=== PATIENT | female | born 1945 | race Caucasian/White ===

== ENCOUNTER 2019-09-25 10:15 | Outpatient (CLI) | payer MEDICARE, SELFPAY ==
[2019-09-25 15:41] LABS: Basophils Percent Auto 0.7 % (0.2-1.2); Eosinophils Absolute Auto 0.4 K/mm3 (0-0.3); Eosinophils Percent Auto 7.4 % (0-4.4); Hematocrit 34.3 % (37.0-47.0); Hemoglobin 11.1 g/dL (12.0-15.0); Immature Granulocyte Absolute 0.01 K/mm3 (0.00-0.031); Immature Granulocyte Percent A 0.2 % (0-0.5); Lymphocytes Absolute Auto 1.41 K/mm3 (0.9-3.2); Mean Corpuscular HGB Conc 32.4 g/dl (32-36); Mean Corpuscular Hemoglobin 32.6 pg (26-34); Mean Corpuscular Volume 100.6 fl (80-100); Mean Platelet Volume 9.7 fl (7.4-10.4); Monocytes Absolute Auto 0.6 K/mm3 (0.1-0.6); Monocytes Percent Auto 11.2 % (2.6-8.5); Neutrophils Percent Auto 54.5 % (45.5-73.1); Platelet Count Result 194 k/mm3 (150-375); Red Blood Count 3.41 M/mm3 (4.2-5.4); Red Cell Distribution Width 12.2 % (11.5-14.5); White Blood Count 5.4 K/mm3 (4.5-10.0)
[2019-09-25 15:48] LABS: Blood Urea Nitrogen 36 mg/dL (7-17); Calcium 9.6 mg/dL (8.4-10.2); Carbon Dioxide 23 mmol/L (22-30); Chloride 104 mmol/L (98-107); Cholesterol 200 mg/dL (0-200); Estimated Glomerular Filt Rate 44; Glucose 87 mg/dL (65-105); HDL Direct 87 mg/dL; Potassium 4.6 mmol/L (3.4-5.0); Sodium 138 mmol/L (137-145); Triglycerides 55 mg/dL (<150)
[2019-09-25 15:58] LABS: LDL Cholesterol Direct 101 mg/dL
[2019-09-25 16:17] LABS: Thyroid Stimulating Hormone < 0.015 uIU/mL (0.465-4.680)
[2019-09-25 17:04] LABS: Free T4 Free Thyroxine 2.12 ng/mL (0.78-2.19)
== END 2019-09-25 10:16 | disposition home or self-care (01) ==
PROVIDERS: PCP Internal Medicine; Visit Provider Internal Medicine
DX: E03.9 Hypothyroidism, unspecified (principal); Z79.899 Other long term (current) drug therapy
CPT/HCPCS: 36415; 80048; 80061; 82542; 84439; 84443; 85025

== ENCOUNTER 2019-10-12 11:09 | Outpatient (CLI) | payer MEDICARE, SELFPAY ==
[2019-10-12 11:40] LABS: Add Urine Microscopic? NO; Appearance Urine Clear (Clear); Bilirubin Urine Negative (Negative); Blood Urine Negative (Negative); Color Urine Straw (Yellow); Glucose Urine UA Negative (Negative); Ketones Urine Negative (Negative); Leukocyte Esterase Ur Negative LEU/UL (NEGATIVE); Nitrate Urine Negative (Negative); Protein Urine Negative (Negative); Specific Grav Ur 1.006 (1.001-1.035); Urobilinogen Urine Negative mg/dL (<2.0)
== END 2019-10-12 11:10 | disposition home or self-care (01) ==
PROVIDERS: PCP Internal Medicine; Visit Provider Internal Medicine
DX: R31.29 Other microscopic hematuria (principal)
CPT/HCPCS: 81003

== ENCOUNTER 2020-01-13 10:12 | Outpatient (CLI) | payer MEDICARE, SELFPAY ==
[2020-01-13 10:37] LABS: Basophils Absolute Auto 0.1 K/mm3 (0.0-0.1); Eosinophils Absolute Auto 2.2 K/mm3 (0-0.3); Eosinophils Percent Auto 30.9 % (0-4.4); Hematocrit 35.8 % (37.0-47.0); Hemoglobin 11.9 g/dL (12.0-15.0); Immature Granulocyte Absolute 0.01 K/mm3 (0.00-0.031); Immature Granulocyte Percent A 0.1 % (0-0.5); Lymphocytes Absolute Auto 1.66 K/mm3 (0.9-3.2); Lymphocytes Percent Auto 23.1 % (18.3-44.2); Mean Corpuscular HGB Conc 33.2 g/dl (32-36); Mean Corpuscular Hemoglobin 32.7 pg (26-34); Mean Corpuscular Volume 98.4 fl (80-100); Mean Platelet Volume 9.6 fl (7.4-10.4); Monocytes Absolute Auto 0.6 K/mm3 (0.1-0.6); Monocytes Percent Auto 8.5 % (2.6-8.5); Neutrophils Absolute Auto 2.6 K/mm3 (1.3-6.7); Neutrophils Percent Auto 36.4 % (45.5-73.1); Platelet Count Result 204 k/mm3 (150-375); Red Blood Count 3.64 M/mm3 (4.2-5.4); Red Cell Distribution Width 13.2 % (11.5-14.5); White Blood Count 7.2 K/mm3 (4.5-10.0)
[2020-01-13 10:48] LABS: Blood Urea Nitrogen 27 mg/dL (7-17); Calcium 9.5 mg/dL (8.4-10.2); Carbon Dioxide 28 mmol/L (22-30); Chloride 100 mmol/L (98-107); Cholesterol 169 mg/dL (0-200); Estimated Glomerular Filt Rate > 60; Glucose 91 mg/dL (65-105); HDL Direct 93 mg/dL; Potassium 4.8 mmol/L (3.4-5.0); Sodium 135 mmol/L (137-145); Triglycerides 64 mg/dL (<150)
[2020-01-13 10:53] LABS: Add Urine Microscopic? NO; Appearance Urine Clear (Clear); Bilirubin Urine Negative (Negative); Blood Urine Negative (Negative); Color Urine Straw (Yellow); Glucose Urine UA Negative (Negative); Ketones Urine Negative (Negative); Leukocyte Esterase Ur Negative LEU/UL (NEGATIVE); Nitrate Urine Negative (Negative); Protein Urine Negative (Negative); Specific Grav Ur 1.009 (1.001-1.035); Urobilinogen Urine Negative mg/dL (<2.0)
[2020-01-13 10:59] LABS: LDL Cholesterol Direct 65 mg/dL
[2020-01-13 11:20] LABS: Thyroid Stimulating Hormone 0.848 uIU/mL (0.465-4.680)
[2020-01-13 11:35] LABS: Free T4 Free Thyroxine 0.92 ng/mL (0.78-2.19)
[2020-01-13 12:01] LABS: Folic Acid > 20.0 ng/mL (2.76->20); Vitamin B12 > 1000.0 pg/mL (239-931)
== END 2020-01-13 10:13 | disposition home or self-care (01) ==
PROVIDERS: PCP Internal Medicine; Visit Provider Internal Medicine
DX: I10 Essential (primary) hypertension (principal); E03.9 Hypothyroidism, unspecified; R31.29 Other microscopic hematuria; E78.5 Hyperlipidemia, unspecified; E53.8 Deficiency of other specified B group vitamins
CPT/HCPCS: 36415; 80048; 80061; 81003; 82607; 82746; 84439; 84443; 85025

== ENCOUNTER 2020-01-27 10:48 | Outpatient (CLI) | payer MEDICARE, SELFPAY ==
--- NOTE | ~2020-01-27 | MM_ITS ---
EXAMINATION: MM screening [facility] BI w gilda HISTORY: Screening mammogram TECHNIQUE: Craniocaudal and mediolateral oblique 3-D tomosynthesis images were obtained and synthetic 2-D images were generated. CAD analysis was submitted and interpreted. COMPARISON: 11/13/2018, 10/30/2017, 10/17/2016 and lateral digital screening mammogram examinations BREAST PARENCHYMAL COMPOSITION: There are scattered areas of fibroglandular density. FINDINGS: There is no evidence of suspicious mass, calcification, or architectural distortion to sugg est malignancy in either breast. There has been no suspicious interval change. IMPRESSION: 1. No mammographic evidence of malignancy. 2. Recommend routine screening mammography in one year. BI-RADS Category 1: Negative Reviewed, dictated and finalized at location A.
== END 2020-01-27 10:49 | disposition home or self-care (01) ==
PROVIDERS: PCP Internal Medicine; Visit Provider Obstetrics & Gynecology
DX: Z12.31 Encounter for screening mammogram for malignant neoplasm of breast (principal)
CPT/HCPCS: 77063; 77067

== ENCOUNTER 2020-05-25 16:14 | Outpatient (CLI) | payer MEDICARE, SELFPAY ==
[2020-05-25 16:29] LABS: Basophils Percent Auto 0.5 % (0.2-1.2); Eosinophils Absolute Auto 0.3 K/mm3 (0-0.3); Eosinophils Percent Auto 4.9 % (0-4.4); Hematocrit 35.3 % (37.0-47.0); Hemoglobin 11.9 g/dL (12.0-15.0); Immature Granulocyte Absolute 0.01 K/mm3 (0.00-0.031); Immature Granulocyte Percent A 0.2 % (0-0.5); Lymphocytes Absolute Auto 1.67 K/mm3 (0.9-3.2); Lymphocytes Percent Auto 29.1 % (18.3-44.2); Mean Corpuscular HGB Conc 33.7 g/dl (32-36); Mean Corpuscular Hemoglobin 33.6 pg (26-34); Mean Corpuscular Volume 99.7 fl (80-100); Monocytes Absolute Auto 0.6 K/mm3 (0.1-0.6); Monocytes Percent Auto 9.9 % (2.6-8.5); Neutrophils Absolute Auto 3.2 K/mm3 (1.3-6.7); Neutrophils Percent Auto 55.4 % (45.5-73.1); Platelet Count Result 193 k/mm3 (150-375); Red Blood Count 3.54 M/mm3 (4.2-5.4); Red Cell Distribution Width 13.2 % (11.5-14.5); White Blood Count 5.7 K/mm3 (4.5-10.0)
[2020-05-25 16:42] LABS: Anion Gap 11 mmol/L (8-16); Blood Urea Nitrogen 18 mg/dL (7-17); Calcium 10.1 mg/dL (8.4-10.2); Carbon Dioxide 31 mmol/L (22-30); Chloride 97 mmol/L (98-107); Estimated Glomerular Filt Rate 54; Glucose 90 mg/dL (65-105); Potassium 4.4 mmol/L (3.4-5.0); Sodium 139 mmol/L (137-145)
== END 2020-05-25 16:15 | disposition home or self-care (01) ==
LOC: ANHLAB 16:17
PROVIDERS: PCP Internal Medicine; Visit Provider Internal Medicine
DX: K92.1 Melena (principal); R19.7 Diarrhea, unspecified; Z79.899 Other long term (current) drug therapy
CPT/HCPCS: 36415; 80048; 85025

== ENCOUNTER 2020-05-28 09:05 | Outpatient (CLI) | payer MEDICARE, SELFPAY ==
--- NOTE | ~2020-05-28 | CT_ITS ---
EXAMINATION: CT abdomen pelvis w con DATE: 05/28/2020 09:44 INDICATION: Left lower quadrant abdominal pain. TECHNIQUE: Computed tomography (CT) of the abdomen and pelvis was performed with 100 mL Omnipaque-350 intravenous contrast. Automated exposure control and iterative reconstruction technique were employe d. The dose-length product was 248.16 mGy-cm. COMPARISON: MRI dated 07/22/[address] dated 12/19/2006 FINDINGS: Calcified right middle lobe nodule consistent with old granulomatous disease. Borderline heart size w ith biatrial enlargement. Atherosclerotic coronary artery calcific calcification and aortic valve madeleine cification. No pericardial or pleural effusion. Liver, spleen, pancreas and bilateral adrenal glands are normal. There are a few small calcified gallstones in the dependent aspect of the normal gallblad bart. No intra or extrahepatic biliary ductal dilation. Scattered cortical scarring at both kidneys. 1 .7 cm low-attenuation exophytic cyst at the lower pole of the left kidney. Unchanged 12 mm intermedia te attenuation proteinaceous/hemorrhagic cyst at the left kidney which is without enhancement on prio r MRI. Postoperative change of prior partial colectomy with anastomotic suture line at the sigmoid co bia. Small bowel and appendix are normal. Bladder is normal. The uterus is not identified and has lik scot been surgically resected. No free intraperitoneal gas or fluid. No pathologically enlarged abdomi nal or pelvic lymphadenopathy. There is calcified atherosclerosis of the aorta and many of the other arteries. Mild thoracolumbar dextrocurvature with severe lower lumbar spondylosis. Old healed proxima l left femoral fracture with partially visualized internal fixation. IMPRESSION: 1. No acute intra-abdominal/pelvic process. 2. Borderline heart size with biatrial enlargement. 3. Cholelithiasis. Reviewed, dictated and finalized at location A.
[2020-05-28 09:37] LABS: Estimated Glomerular Filt Rate 54
== END 2020-05-28 09:06 | disposition home or self-care (01) ==
PROVIDERS: PCP Internal Medicine; Visit Provider Internal Medicine
DX: R10.32 Left lower quadrant pain (principal); K92.1 Melena; K80.20 Calculus of gallbladder without cholecystitis without obstruction
CPT/HCPCS: 74177; Q9967

== ENCOUNTER 2020-06-16 06:53 | Outpatient (NON) | payer MEDICARE, SELFPAY ==
[2020-06-16 21:43] LABS: SARS-CoV-2 RNA PCR Negative
== END 2020-06-16 06:54 ==
LOC: ANHCOVIDDT 06:56
PROVIDERS: PCP Internal Medicine; Visit Provider Internal Medicine
DX: Z20.828 Contact with and (suspected) exposure to other viral communicable diseases (principal)
CPT/HCPCS: 87635; C9803; U0003

== ENCOUNTER 2020-10-25 12:00 | Outpatient (CLI) | payer MEDICARE, SELFPAY ==
[2020-10-25 12:33] LABS: Basophils Percent Auto 0.6 % (0.2-1.2); Eosinophils Absolute Auto 0.5 K/mm3 (0-0.3); Eosinophils Percent Auto 9.5 % (0-4.4); Hematocrit 33.6 % (37.0-47.0); Hemoglobin 10.9 g/dL (12.0-15.0); Immature Granulocyte Absolute 0.01 K/mm3 (0.00-0.031); Immature Granulocyte Percent A 0.2 % (0-0.5); Lymphocytes Absolute Auto 1.54 K/mm3 (0.9-3.2); Lymphocytes Percent Auto 28.7 % (18.3-44.2); Mean Corpuscular HGB Conc 32.4 g/dl (32-36); Mean Corpuscular Volume 101.8 fl (80-100); Mean Platelet Volume 9.8 fl (7.4-10.4); Monocytes Absolute Auto 0.7 K/mm3 (0.1-0.6); Monocytes Percent Auto 13.4 % (2.6-8.5); Neutrophils Absolute Auto 2.6 K/mm3 (1.3-6.7); Neutrophils Percent Auto 47.6 % (45.5-73.1); Platelet Count Result 195 k/mm3 (150-375); Red Cell Distribution Width 13.5 % (11.5-14.5); White Blood Count 5.4 K/mm3 (4.5-10.0)
[2020-10-25 12:41] LABS: Hemoglobin A1C 4.7 % (<5.7)
[2020-10-25 12:47] LABS: Add Urine Microscopic? YES; Appearance Urine Clear (Clear); Bilirubin Urine Negative (Negative); Blood Urine Negative (Negative); Color Urine Yellow (Yellow); Glucose Urine UA Negative (Negative); Ketones Urine Negative (Negative); Leukocyte Esterase Ur 2+ LEU/UL (NEGATIVE); Nitrate Urine Negative (Negative); Protein Urine Negative (Negative); RBC Urine 0-2 /hpf (0-2); Specific Grav Ur 1.013 (1.001-1.035); Squamous Epithelial Cell Urine Occasional /hpf (Few); Urobilinogen Urine Negative mg/dL (<2.0)
[2020-10-25 12:49] LABS: Alanine Aminotransferase 26 U/L (4-35); Albumin Level 4.2 g/dL (3.5-5.1); Alkaline Phosphatase 94 U/L (38-126); Anion Gap 5 mmol/L (8-16); Aspartate Amino Transferase 40 U/L (14-36); Bilirubin,Total 0.4 mg/dL (0.2-1.3); Blood Urea Nitrogen 27 mg/dL (7-17); Calcium 9.8 mg/dL (8.4-10.2); Carbon Dioxide 32 mmol/L (22-30); Chloride 102 mmol/L (98-107); Cholesterol 179 mg/dL (0-200); Estimated Glomerular Filt Rate 48; Glucose 89 mg/dL (65-105); HDL Direct 91 mg/dL; Potassium 4.7 mmol/L (3.4-5.0); Sodium 139 mmol/L (137-145); Triglycerides 90 mg/dL (<150)
[2020-10-25 13:00] LABS: LDL Cholesterol Direct 57 mg/dL
[2020-10-25 13:15] LABS: Vitamin D 25 Hydroxy 63.3 ng/mL
[2020-10-25 13:17] LABS: Thyroid Stimulating Hormone < 0.015 uIU/mL (0.465-4.680)
[2020-10-25 13:52] LABS: Folic Acid > 20.0 ng/mL (2.76->20); Vitamin B12 > 1000.0 pg/mL (239-931)
== END 2020-10-25 12:01 | disposition home or self-care (01) ==
PROVIDERS: PCP Internal Medicine; Visit Provider Internal Medicine
DX: E03.9 Hypothyroidism, unspecified (principal); I10 Essential (primary) hypertension; Z51.81 Encounter for therapeutic drug level monitoring; Z79.899 Other long term (current) drug therapy; E53.8 Deficiency of other specified B group vitamins
CPT/HCPCS: 36415; 80053; 80061; 81001; 82306; 82607; 82746; 83036; 84443; 85025

== ENCOUNTER 2020-11-09 11:08 | Outpatient (CLI) | payer MEDICARE, SELFPAY ==
[2020-11-09 11:53] LABS: Magnesium 1.3 mg/dL (1.6-2.3)
[2020-11-09 12:42] LABS: Free T4 Free Thyroxine 1.32 ng/mL (0.78-2.19)
== END 2020-11-09 11:09 | disposition home or self-care (01) ==
PROVIDERS: PCP Internal Medicine; Visit Provider Internal Medicine
DX: R60.9 Edema, unspecified (principal); Z51.81 Encounter for therapeutic drug level monitoring; Z79.899 Other long term (current) drug therapy; E03.9 Hypothyroidism, unspecified
CPT/HCPCS: 36415; 83735; 84439

== ENCOUNTER 2020-12-01 13:12 | Outpatient (CLI) | payer MEDICARE, SELFPAY ==
[2020-12-01 14:20] LABS: Anion Gap 8 mmol/L (8-16); Blood Urea Nitrogen 32 mg/dL (7-17); Calcium 9.6 mg/dL (8.4-10.2); Carbon Dioxide 26 mmol/L (22-30); Chloride 103 mmol/L (98-107); Estimated Glomerular Filt Rate 44; Glucose 88 mg/dL (65-105); Potassium 4.7 mmol/L (3.4-5.0); Sodium 137 mmol/L (137-145)
== END 2020-12-01 13:13 | disposition home or self-care (01) ==
LOC: ANHLAB 13:14
PROVIDERS: PCP Internal Medicine; Visit Provider Internal Medicine
DX: I10 Essential (primary) hypertension (principal); Z79.899 Other long term (current) drug therapy
CPT/HCPCS: 36415; 80048

== ENCOUNTER 2021-01-21 07:57 | Emergency (ER) | payer MEDICARE, SELFPAY ==
--- NOTE | ~2021-01-21 | US_ITS ---
EXAMINATION: US venous doppler [facility] DATE: 01/21/2021 12:18 INDICATION: Left lower limb swelling. TECHNIQUE: Grayscale ultrasound images without and with compression and Doppler ultrasound images of the left lower extremity veins were obtained. COMPARISON: Ultrasound 04/22/2014 FINDINGS: The visualized portions of left common femoral vein, profunda (deep) femoral vein, femoral vein, popl iteal vein, peroneal veins, posterior tibial veins, and greater saphenous vein outflow are patent. IMPRESSION: 1. No deep venous thrombosis. Reviewed, dictated and finalized at location A.
--- NOTE | ~2021-01-21 | XR_ITS ---
EXAMINATION: XR tibia fibula LT 2V DATE: 01/21/2021 10:26 INDICATION: Left lower leg bruising. TECHNIQUE: 2 views of left lower leg were obtained. COMPARISON: None. FINDINGS: Bone alignment is normal. No acute fracture. There is internal fixation of left femur. Ther e is mild left knee osteoarthritis. There are scattered skin calcifications in the lower leg. IMPRESSION: 1. Mild left knee osteoarthritis. Reviewed, dictated and finalized at location A.
[2021-01-21 08:13] VITALS: BP 162/57; PULSE 66; RESP 18; TEMP 36.4; O2SAT 100
--- NOTE | 2021-01-21 10:14 | ED.GENADULT ---
HPI - General Adult General Chief complaint: Extremity Injury, Lower Stated complaint: reaction to shingles shot Time Seen by Provider: 01/21/21 09:09 Source: patient and family Mode of arrival: ambulatory Limitations: no limitations History of Present Illness HPI narrative: Patient presents for evaluation of bruising to left lower extremity. She indicates that her dog scratched her left lower leg about six months ago. She had noted some bruising in affected area since that time. Yesterday she noted worsening of bruising to left lower extremity. She received a shingles vaccine on Saturday of this week and states that she has not felt well since that time. She experienced some chills and nausea. She contacted her primary doctor the following day and they informed her that these findings were essentially normal following administration of vaccine. She denies significant pain in the affected extremity. She states that she has a history of atrial fibrillation and is currently anticoagulated with Eliquis. Her daughter has a history of DVT. Denies smoking. No recent surgeries. Not on exogenous estrogen. No chest pain or shortness of breath. No additional complaints or concerns. Related Data Home Medications Medication Instructions Recorded Confirmed cyanocobalamin (vitamin B-12) 1,000 mcg PO DAILY 09/03/19 12/07/20 [Vitamin B-12] eluxadoline 75 mg tablet 75 mg PO DAILY tablet 11/09/20 12/07/20 mirabegron 50 mg tablet,extended 2,500 mg PO DAILY 11/09/20 12/07/20 release 24 hr Allergies Allergy/AdvReac Type Severity Reaction Status Date / Time No Known Allergies Allergy Verified 01/21/21 08:17 Review of Systems Review of Systems: Narrative: CONSTITUTIONAL: Denies fever, chills, or sweats. EYES: Denies visual changes, redness, or discharge. ENT: Denies rhinorrhea, congestion, sore throat, or otalgia. CARDIOVASCULAR: Denies chest pain, palpitations, or edema. RESPIRATORY: Denies cough or dyspnea. GASTROINTESTINAL: Denies abdominal pain, nausea, vomiting, or diarrhea. GENITOURINARY: Denies dysuria or hematuria. SKIN: Reports bruising to left lower extremity MUSCULOSKELETAL: Denies back pain, joint pain, or myalgia. NEUROLOGIC: Denies headache, numbness, dizziness, or weakness. PSYCHIATRIC: Denies anxiety or depression. [facility] Past Medical History Medical History Adult BMI 19-24 kg/sq m Anxiety Anxiety Benign essential hypertension Blepharitis Blood in stool Chronic anemia CKD (chronic kidney disease) stage 1, GFR 90 ml/min or greater Daily consumption of alcohol Depression Edema Elevated homocysteine Encounter for routine adult health examination with abnormal findings Encounter for routine adult health examination without abnormal findings Exposure to COVID-19 virus Follow up Fractures Left open femur fracture and right ankle fracture. 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 Shingles Stasis dermatitis Vitamin B12 deficiency Surgical History Surgical History History of chest tube placement History of endometrial ablation For dysfunctional uterine bleeding. History of orthopedic surgery ORIF left open femur fracture. Status post total hysterectomy and bilateral salpingo-oophorectomy Family History Family History Mother Hypertension Father Family history of lung cancer Family history of malignant neoplasm of brain Social History Social History Social History: [employer]
[2021-01-21 10:27] LABS: Basophils Percent Auto 0.6 % (0.2-1.2); Eosinophils Absolute Auto 0.3 K/mm3 (0-0.3); Eosinophils Percent Auto 4.8 % (0-4.4); Hematocrit 32.6 % (37.0-47.0); Hemoglobin 10.9 g/dL (12.0-15.0); Immature Granulocyte Absolute 0.02 K/mm3 (0.00-0.031); Immature Granulocyte Percent A 0.4 % (0-0.5); Lymphocytes Absolute Auto 1.02 K/mm3 (0.9-3.2); Lymphocytes Percent Auto 19.5 % (18.3-44.2); Mean Corpuscular HGB Conc 33.4 g/dl (32-36); Mean Corpuscular Hemoglobin 32.8 pg (26-34); Mean Corpuscular Volume 98.2 fl (80-100); Mean Platelet Volume 9.1 fl (7.4-10.4); Monocytes Absolute Auto 0.7 K/mm3 (0.1-0.6); Monocytes Percent Auto 13.6 % (2.6-8.5); Neutrophils Absolute Auto 3.2 K/mm3 (1.3-6.7); Neutrophils Percent Auto 61.1 % (45.5-73.1); Platelet Count Result 195 k/mm3 (150-375); Red Blood Count 3.32 M/mm3 (4.2-5.4); Red Cell Distribution Width 13.1 % (11.5-14.5); White Blood Count 5.2 K/mm3 (4.5-10.0)
[2021-01-21 10:38] LABS: INR 1.6
[2021-01-21 10:41] LABS: Partial Thromboplastin Time 49.2 SECONDS (22.3-36.8)
[2021-01-21 11:00] LABS: Alanine Aminotransferase 14 U/L (4-35); Albumin Level 3.9 g/dL (3.5-5.1); Alkaline Phosphatase 75 U/L (38-126); Anion Gap 5 mmol/L (8-16); Aspartate Amino Transferase 34 U/L (14-36); Bilirubin,Total 0.4 mg/dL (0.2-1.3); Blood Urea Nitrogen 24 mg/dL (7-17); CRP 20.1 mg/dL (<1.0); Calcium 9.5 mg/dL (8.4-10.2); Carbon Dioxide 32 mmol/L (22-30); Chloride 99 mmol/L (98-107); Creatine Kinase 25 U/L (30-135); Estimated CRCL calculation 34 ml/min; Estimated Glomerular Filt Rate 48; Glucose 101 mg/dL (65-105); Potassium 3.6 mmol/L (3.4-5.0); Sodium 136 mmol/L (137-145)
[2021-01-21 11:06] LABS: Erythrocyte Sedimentation Rate 121 mm/hr (0-20)
[2021-01-21 12:31] VITALS: BP 156/76; PULSE 68; RESP 18; O2SAT 97
[2021-01-21 13:24] VITALS: BP 156/76; PULSE 60; RESP 20; O2SAT 99
== END 2021-01-21 13:28 | disposition home or self-care (01) ==
PROVIDERS: Emergency Provider Nurse Practitioner; PCP Internal Medicine
DX: L03.116 Cellulitis of left lower limb (principal); S80.12XA Contusion of left lower leg, initial encounter; I12.9 Hypertensive chronic kidney disease with stage 1 through stage 4 chronic kidney disease, or unspecified chronic kidney disease; N18.1 Chronic kidney disease, stage 1; D64.9 Anemia, unspecified; I48.91 Unspecified atrial fibrillation; K21.9 Gastro-esophageal reflux disease without esophagitis; E03.9 Hypothyroidism, unspecified; E78.2 Mixed hyperlipidemia; N32.81 Overactive bladder; E53.8 Deficiency of other specified B group vitamins; Z79.01 Long term (current) use of anticoagulants; Z87.891 Personal history of nicotine dependence; M17.12 Unilateral primary osteoarthritis, left knee; M79.89 Other specified soft tissue disorders; W54.8XXA Other contact with dog, initial encounter
CPT/HCPCS: 36415; 73590; 80053; 82550; 85025; 85610; 85652; 85730; 86140; 93971; 99284

== ENCOUNTER 2021-01-30 10:34 | Outpatient (CLI) | payer MEDICARE, SELFPAY ==
--- NOTE | ~2021-01-30 | MM_ITS ---
EXAMINATION: MM screening [facility] BI w gilda HISTORY: Screening mammogram TECHNIQUE: Craniocaudal and mediolateral oblique 3-D tomosynthesis images were obtained and synthetic 2-D images were generated. CAD analysis was submitted and interpreted. COMPARISON: 02/13/2020, 11/13/2018, 10/30/2017 bilateral digital screening mammogram examinations BREAST PARENCHYMAL COMPOSITION: There are scattered areas of fibroglandular density. FINDINGS: Stable mild fibroglandular asymmetry. There is no evidence of suspicious mass, calcificatio n, or architectural distortion to suggest malignancy in either breast. There has been no suspicious i nterval change. IMPRESSION: 1. No mammographic evidence of malignancy. 2. Recommend routine screening mammography in one year. BI-RADS Category 2: Benign finding(s). Reviewed, dictated and finalized at location A.
== END 2021-01-30 10:35 | disposition home or self-care (01) ==
LOC: ANHIMG 10:40
PROVIDERS: PCP Internal Medicine; Visit Provider Obstetrics & Gynecology
DX: Z12.31 Encounter for screening mammogram for malignant neoplasm of breast (principal)
CPT/HCPCS: 77063; 77067

== ENCOUNTER 2021-01-30 11:16 | Outpatient (CLI) | payer MEDICARE, SELFPAY ==
[2021-01-30 11:31] LABS: Basophils Absolute Auto 0.1 K/mm3 (0.0-0.1); Basophils Percent Auto 0.8 % (0.2-1.2); Eosinophils Absolute Auto 0.4 K/mm3 (0-0.3); Eosinophils Percent Auto 6.7 % (0-4.4); Hematocrit 35.3 % (37.0-47.0); Hemoglobin 11.5 g/dL (12.0-15.0); Immature Granulocyte Absolute 0.02 K/mm3 (0.00-0.031); Immature Granulocyte Percent A 0.3 % (0-0.5); Lymphocytes Percent Auto 31.1 % (18.3-44.2); Mean Corpuscular HGB Conc 32.6 g/dl (32-36); Mean Corpuscular Hemoglobin 32.5 pg (26-34); Mean Corpuscular Volume 99.7 fl (80-100); Mean Platelet Volume 8.9 fl (7.4-10.4); Monocytes Absolute Auto 0.7 K/mm3 (0.1-0.6); Monocytes Percent Auto 11.5 % (2.6-8.5); Neutrophils Absolute Auto 3.2 K/mm3 (1.3-6.7); Neutrophils Percent Auto 49.6 % (45.5-73.1); Platelet Count Result 295 k/mm3 (150-375); Red Blood Count 3.54 M/mm3 (4.2-5.4); Red Cell Distribution Width 13.2 % (11.5-14.5); White Blood Count 6.4 K/mm3 (4.5-10.0)
[2021-01-30 11:57] LABS: Erythrocyte Sedimentation Rate 88 mm/hr (0-20)
[2021-01-30 13:24] LABS: Alanine Aminotransferase 16 U/L (4-35); Albumin Level 4.2 g/dL (3.5-5.1); Alkaline Phosphatase 84 U/L (38-126); Anion Gap 11 mmol/L (8-16); Aspartate Amino Transferase 46 U/L (14-36); Bilirubin,Total 0.4 mg/dL (0.2-1.3); Blood Urea Nitrogen 49 mg/dL (7-17); CRP 1.9 mg/dL (<1.0); Calcium 10.1 mg/dL (8.4-10.2); Carbon Dioxide 25 mmol/L (22-30); Chloride 103 mmol/L (98-107); Estimated Glomerular Filt Rate 40; Glucose 86 mg/dL (65-105); Potassium 4.8 mmol/L (3.4-5.0); Sodium 139 mmol/L (137-145)
== END 2021-01-30 11:17 | disposition home or self-care (01) ==
PROVIDERS: PCP Internal Medicine; Visit Provider Internal Medicine
DX: L03.116 Cellulitis of left lower limb (principal); I10 Essential (primary) hypertension; Z79.899 Other long term (current) drug therapy
CPT/HCPCS: 36415; 77063; 77067; 80053; 85025; 85652; 86140

== ENCOUNTER 2021-02-06 13:01 | Outpatient (CLI) | payer MEDICARE, SELFPAY ==
[2021-02-06 13:24] LABS: Basophils Percent Auto 0.5 % (0.2-1.2); Eosinophils Absolute Auto 0.2 K/mm3 (0-0.3); Eosinophils Percent Auto 3.4 % (0-4.4); Hematocrit 34.7 % (37.0-47.0); Hemoglobin 11.3 g/dL (12.0-15.0); Immature Granulocyte Absolute 0.02 K/mm3 (0.00-0.031); Immature Granulocyte Percent A 0.3 % (0-0.5); Lymphocytes Absolute Auto 1.49 K/mm3 (0.9-3.2); Lymphocytes Percent Auto 25.4 % (18.3-44.2); Mean Corpuscular HGB Conc 32.6 g/dl (32-36); Mean Corpuscular Hemoglobin 32.8 pg (26-34); Mean Corpuscular Volume 100.6 fl (80-100); Mean Platelet Volume 9.3 fl (7.4-10.4); Monocytes Absolute Auto 0.5 K/mm3 (0.1-0.6); Monocytes Percent Auto 8.5 % (2.6-8.5); Neutrophils Absolute Auto 3.6 K/mm3 (1.3-6.7); Neutrophils Percent Auto 61.9 % (45.5-73.1); Platelet Count Result 252 k/mm3 (150-375); Red Blood Count 3.45 M/mm3 (4.2-5.4); Red Cell Distribution Width 13.3 % (11.5-14.5); White Blood Count 5.9 K/mm3 (4.5-10.0)
[2021-02-06 13:35] LABS: Add Urine Microscopic? YES; Appearance Urine Cloudy (Clear); Bacteria Urine Trace /hpf; Bilirubin Urine Negative (Negative); Blood Urine Negative (Negative); Color Urine Yellow (Yellow); Glucose Urine UA Negative (Negative); Ketones Urine Negative (Negative); Leukocyte Esterase Ur 3+ LEU/UL (Negative); Mucus Urine Rare /lpf; Nitrate Urine Negative (Negative); Protein Urine Negative (Negative); Specific Grav Ur 1.013 (1.001-1.035); Squamous Epithelial Cell Urine Rare /hpf (Few); Urobilinogen Urine Negative mg/dL (<2.0)
[2021-02-06 13:38] LABS: Anion Gap 11 mmol/L (8-16); Blood Urea Nitrogen 36 mg/dL (7-17); CRP 0.9 mg/dL (<1.0); Carbon Dioxide 27 mmol/L (22-30); Chloride 101 mmol/L (98-107); Estimated Glomerular Filt Rate 44; Glucose 100 mg/dL (65-105); Potassium 4.4 mmol/L (3.4-5.0); Sodium 139 mmol/L (137-145)
[2021-02-06 13:53] LABS: Erythrocyte Sedimentation Rate 47 mm/hr (0-20)
== END 2021-02-06 13:02 | disposition home or self-care (01) ==
PROVIDERS: PCP Internal Medicine; Visit Provider Internal Medicine
DX: L03.116 Cellulitis of left lower limb (principal); Z79.899 Other long term (current) drug therapy; R70.0 Elevated erythrocyte sedimentation rate
CPT/HCPCS: 36415; 80048; 81001; 85025; 85652; 86140

== ENCOUNTER 2021-02-14 07:47 | Outpatient (CLI) | payer MEDICARE, SELFPAY ==
--- NOTE | ~2021-02-14 | CT_ITS ---
EXAMINATION: CT abdomen pelvis wo/w con DATE: 02/14/2021 08:33 INDICATION: Hematuria, unspecified TECHNIQUE: Computed tomography (CT) of the abdomen and pelvis was performed without intravenous contr ast. CT of the abdomen and pelvis was then performed with a total of 130 mL Omnipaque 350 intravenous contrast using a double-bolus technique for simultaneous opacification of the renal parenchyma and r enal collecting system. The dose-length product (DLP) was 688.66 mGy-cm. Automated exposure control a nd iterative reconstruction technique were employed. COMPARISON: 05/28/2020 FINDINGS: Minimal dependent atelectasis is present in the lung bases. The heart size is normal. There are stones in the nondistended gallbladder. The common bile duct is dilated up to 1.5 cm. There is m ild intrahepatic biliary dilatation as well. The liver, spleen, and adrenal glands are normal. There is atrophy of the body of the pancreas with some dilated side changes in the tail, consistent with ch ronic pancreatitis. There is cortical scarring of the kidneys. Hemorrhagic cysts measuring up to 8 mm are present in the upper pole of the left kidney. No stones are identified in the kidneys, ureters, or bladder. There is no hydronephrosis or hydroureter. No suspicious renal or urothelial lesion is id entified. No pathologically enlarged abdominal or pelvic lymph nodes are identified. There is calcifi ed atherosclerosis of the aorta and many of the other arteries. There is no free intraperitoneal gas or evidence of bowel obstruction. An intramedullary radha is present in the left femur traversing a hea led proximal shaft fracture. A surgical anastomosis is noted in the rectum. There is severe lumbar sp ondylosis. IMPRESSION: 1. No CT correlate for the patient's symptoms. 2. Intrahepatic and extrahepatic biliary dilatation. Recommend correlation with liver function tests. 3. Cholelithiasis without evidence of cholecystitis. Reviewed, dictated and finalized at location A.
== END 2021-02-14 07:48 | disposition home or self-care (01) ==
PROVIDERS: PCP Internal Medicine; Visit Provider Internal Medicine
DX: R31.9 Hematuria, unspecified (principal); K80.20 Calculus of gallbladder without cholecystitis without obstruction
CPT/HCPCS: 74178; Q9967

== ENCOUNTER 2021-02-16 10:25 | Outpatient (CLI) | payer MEDICARE, SELFPAY ==
[2021-02-16 10:56] LABS: Alanine Aminotransferase 14 U/L (4-35); Albumin Level 3.9 g/dL (3.5-5.1); Alkaline Phosphatase 59 U/L (38-126); Aspartate Amino Transferase 39 U/L (14-36); Bilirubin,Total 0.3 mg/dL (0.2-1.3)
== END 2021-02-16 10:26 | disposition home or self-care (01) ==
LOC: ANHLAB 10:27
PROVIDERS: PCP Internal Medicine; Visit Provider Internal Medicine
DX: K83.8 Other specified diseases of biliary tract (principal)
CPT/HCPCS: 36415; 80076

== ENCOUNTER 2021-02-22 07:19 | Outpatient (CLI) | payer MEDICARE, SELFPAY ==
--- NOTE | ~2021-02-22 | MR_ITS ---
EXAMINATION: MR MRCP wo/w con/w 3D wo ind DATE: 02/22/2021 09:16 INDICATION: Intrahepatic and extrahepatic biliary duct dilatation. TECHNIQUE: Magnetic resonance imaging (MRI) of the abdomen was performed without and with 10 mL Multi Singh intravenous contrast. Sequences included coronal T2-weighted FS FSE, coronal T2-weighted FSE, a xial T1-weighted LAVA, coronal FS FIESTA, axial dual-echo T1-weighted SPGR, coronal lava-FLEX, sagitt al T2-weighted FSE, axial T2-weighted FSE, and axial DWI. Thick-slab T2-weighted FSE images were obta ined for magnetic resonance cholangiopancreatography (MRCP). Maximum intensity projection 3-D reconst ructions of the volumetric data were created by the technologist. Postcontrast sequences included cor onal LAVA-flex and time course of axial T1-weighted LAVA. COMPARISON: MRCP 06/21/2018, CT abdomen and pelvis 02/14/2021 FINDINGS: ABDOMEN MRI: There is mild intrahepatic and extrahepatic biliary duct dilatation. There are gallstone s in the gallbladder, which is normal in size. The spleen is normal. There are four cystic lesions of the pancreas measuring up to 13 mm. The adrenal glands are normal. There is cortical thinning of the kidneys. There are cysts in left kidney measuring up to 2.0 cm on the left. There are hemorrhagic cy sts in left kidney measuring up to 10 mm. There are no dilated loops of bowel. There are no pathologi skyler enlarged lymph nodes. There is no free intraperitoneal fluid. ABDOMEN MRCP: There is mild intrahepatic biliary duct dilatation. The common duct measures up to 11 m m. IMPRESSION: 1. Chronic mild intrahepatic and extrahepatic biliary duct dilatation, likely not clinically signific ant. No choledocholithiasis. 2. Cholelithiasis. 3. Cystic lesions of the pancreas measuring up to 13 mm, stable from 06/25/18, probably benign. Consi bart abdomen MRI without and with contrast in 2 years. Reviewed, dictated and finalized at location A. IMPRESSION: 1. Chronic mild intrahepatic and extrahepatic biliary duct dilatation, likely n ot clinically significant. No choledocholithiasis. 2. Cholelithiasis. 3. Cystic lesions of the pancreas measuring up to 13 mm, stable from 06/25/18, probably benign. Consider abdomen MRI without and with contrast in 2 years.
== END 2021-02-22 07:20 | disposition home or self-care (01) ==
PROVIDERS: PCP Internal Medicine; Visit Provider Internal Medicine
DX: K83.8 Other specified diseases of biliary tract (principal); K80.20 Calculus of gallbladder without cholecystitis without obstruction; K86.9 Disease of pancreas, unspecified
CPT/HCPCS: 74183; 76376; A9577

== ENCOUNTER 2021-04-24 11:06 | Outpatient (CLI) | payer MEDICARE, SELFPAY ==
[2021-04-24 11:35] LABS: Basophils Percent Auto 0.6 % (0.2-1.2); Eosinophils Absolute Auto 0.6 K/mm3 (0-0.3); Eosinophils Percent Auto 11.3 % (0-4.4); Hematocrit 35.7 % (37.0-47.0); Hemoglobin 11.3 g/dL (12.0-15.0); Immature Granulocyte Absolute 0.02 K/mm3 (0.00-0.031); Immature Granulocyte Percent A 0.4 % (0-0.5); Lymphocytes Absolute Auto 1.31 K/mm3 (0.9-3.2); Lymphocytes Percent Auto 26.4 % (18.3-44.2); Mean Corpuscular HGB Conc 31.7 g/dl (32-36); Mean Corpuscular Hemoglobin 32.5 pg (26-34); Mean Corpuscular Volume 102.6 fl (80-100); Mean Platelet Volume 9.2 fl (7.4-10.4); Monocytes Absolute Auto 0.6 K/mm3 (0.1-0.6); Monocytes Percent Auto 11.3 % (2.6-8.5); Neutrophils Absolute Auto 2.5 K/mm3 (1.3-6.7); Platelet Count Result 198 k/mm3 (150-375); Red Blood Count 3.48 M/mm3 (4.2-5.4)
[2021-04-24 12:05] LABS: Anion Gap 7 mmol/L (8-16); Blood Urea Nitrogen 21 mg/dL (7-17); CRP < 0.5 mg/dL (<1.0); Calcium 9.7 mg/dL (8.4-10.2); Carbon Dioxide 30 mmol/L (22-30); Chloride 102 mmol/L (98-107); Cholesterol 169 mg/dL (0-200); Estimated Glomerular Filt Rate 48; Glucose 93 mg/dL (65-110); HDL Direct 90 mg/dL; Magnesium 1.7 mg/dL (1.6-2.3); Potassium 4.8 mmol/L (3.4-5.0); Sodium 139 mmol/L (137-145); Triglycerides 99 mg/dL (<150)
[2021-04-24 12:14] LABS: LDL Cholesterol Direct 56 mg/dL
[2021-04-24 12:23] LABS: Hemoglobin A1C 4.8 % (<5.7)
[2021-04-24 12:32] LABS: Thyroid Stimulating Hormone 0.268 uIU/mL (0.465-4.680)
[2021-04-24 12:35] LABS: Erythrocyte Sedimentation Rate 27 mm/hr (0-20)
[2021-04-24 13:15] LABS: Folic Acid > 20.0 ng/mL (2.76->20); Vitamin B12 > 1000.0 pg/mL (239-931)
[2021-04-24 13:24] LABS: Vitamin D 25 Hydroxy 58.8 ng/mL
== END 2021-04-24 11:07 | disposition home or self-care (01) ==
PROVIDERS: PCP Internal Medicine; Visit Provider Internal Medicine
DX: I10 Essential (primary) hypertension (principal); E03.9 Hypothyroidism, unspecified; E53.8 Deficiency of other specified B group vitamins; Z79.899 Other long term (current) drug therapy; E78.2 Mixed hyperlipidemia; E55.9 Vitamin D deficiency, unspecified
CPT/HCPCS: 36415; 80048; 80061; 82306; 82607; 82746; 83036; 83735; 84439; 84443; 85025; 85652; 86140

== ENCOUNTER 2021-06-12 11:30 | Outpatient (CLI) | payer MEDICARE, SELFPAY ==
[2021-06-12 11:51] LABS: Basophils Percent Auto 0.6 % (0.2-1.2); Eosinophils Absolute Auto 0.4 K/mm3 (0-0.3); Eosinophils Percent Auto 6.6 % (0-4.4); Hematocrit 36.4 % (37.0-47.0); Immature Granulocyte Absolute 0.01 K/mm3 (0.00-0.031); Immature Granulocyte Percent A 0.2 % (0-0.5); Lymphocytes Percent Auto 18.8 % (18.3-44.2); Mean Corpuscular Hemoglobin 32.2 pg (26-34); Mean Corpuscular Volume 97.6 fl (80-100); Mean Platelet Volume 9.1 fl (7.4-10.4); Monocytes Absolute Auto 0.6 K/mm3 (0.1-0.6); Monocytes Percent Auto 9.6 % (2.6-8.5); Neutrophils Absolute Auto 4.1 K/mm3 (1.3-6.7); Neutrophils Percent Auto 64.2 % (45.5-73.1); Platelet Count Result 200 k/mm3 (150-375); Red Blood Count 3.73 M/mm3 (4.2-5.4); Red Cell Distribution Width 12.7 % (11.5-14.5); White Blood Count 6.4 K/mm3 (4.5-10.0)
[2021-06-12 12:10] LABS: Anion Gap 9 mmol/L (8-16); Blood Urea Nitrogen 22 mg/dL (7-17); Calcium 10.1 mg/dL (8.4-10.2); Carbon Dioxide 31 mmol/L (22-30); Chloride 98 mmol/L (98-107); Estimated Glomerular Filt Rate 48; Glucose 105 mg/dL (65-110); Sodium 138 mmol/L (137-145)
== END 2021-06-12 11:31 | disposition home or self-care (01) ==
PROVIDERS: PCP Internal Medicine; Visit Provider Internal Medicine
DX: I10 Essential (primary) hypertension (principal)
CPT/HCPCS: 36415; 80048; 85025

== ENCOUNTER 2021-12-04 11:24 | Outpatient (CLI) | payer MEDICARE, SELFPAY ==
[2021-12-04 12:16] LABS: Basophils Percent Auto 0.6 % (0.2-1.2); Eosinophils Absolute Auto 0.3 K/mm3 (0-0.3); Eosinophils Percent Auto 4.8 % (0-4.4); Hemoglobin 11.1 g/dL (12.0-15.0); Immature Granulocyte Absolute 0.01 K/mm3 (0.00-0.031); Immature Granulocyte Percent A 0.2 % (0-0.5); Lymphocytes Absolute Auto 1.14 K/mm3 (0.9-3.2); Lymphocytes Percent Auto 21.8 % (18.3-44.2); Mean Corpuscular HGB Conc 31.7 g/dl (32-36); Mean Corpuscular Hemoglobin 33.3 pg (26-34); Mean Corpuscular Volume 105.1 fl (80-100); Mean Platelet Volume 9.7 fl (7.4-10.4); Monocytes Absolute Auto 0.7 K/mm3 (0.1-0.6); Monocytes Percent Auto 12.6 % (2.6-8.5); Neutrophils Absolute Auto 3.2 K/mm3 (1.3-6.7); Platelet Count Result 231 k/mm3 (150-375); Red Blood Count 3.33 M/mm3 (4.2-5.4); Red Cell Distribution Width 12.3 % (11.5-14.5); White Blood Count 5.2 K/mm3 (4.5-10.0)
[2021-12-04 12:31] LABS: Hemoglobin A1C 4.8 % (<5.7)
[2021-12-04 12:33] LABS: Alanine Aminotransferase 18 U/L (4-35); Albumin Level 4.3 g/dL (3.5-5.1); Alkaline Phosphatase 112 U/L (38-126); Anion Gap 9 mmol/L (8-16); Aspartate Amino Transferase 37 U/L (14-36); Bilirubin,Total 0.5 mg/dL (0.2-1.3); Blood Urea Nitrogen 27 mg/dL (7-17); Calcium 9.3 mg/dL (8.4-10.2); Carbon Dioxide 29 mmol/L (22-30); Chloride 98 mmol/L (98-107); Cholesterol 165 mg/dL (0-200); Estimated Glomerular Filt Rate 44; Glucose 136 mg/dL (65-110); HDL Direct 64 mg/dL; Potassium 4.2 mmol/L (3.4-5.0); Sodium 136 mmol/L (137-145); Triglycerides 102 mg/dL (<150)
[2021-12-04 12:45] LABS: LDL Cholesterol Direct 57 mg/dL
[2021-12-04 12:51] LABS: Free T4 Free Thyroxine 1.48 ng/mL (0.78-2.19)
[2021-12-04 12:59] LABS: Thyroid Stimulating Hormone 0.048 uIU/mL (0.465-4.680)
== END 2021-12-04 11:25 | disposition home or self-care (01) ==
PROVIDERS: PCP Internal Medicine; Visit Provider Internal Medicine
DX: I10 Essential (primary) hypertension (principal); E78.2 Mixed hyperlipidemia; E03.9 Hypothyroidism, unspecified; Z79.899 Other long term (current) drug therapy
CPT/HCPCS: 36415; 80053; 80061; 83036; 84439; 84443; 85025

== ENCOUNTER 2022-02-01 10:27 | Outpatient (CLI) | payer MEDICARE, SELFPAY ==
--- NOTE | ~2022-02-01 | MM_ITS ---
EXAMINATION: MM screening [facility] BI w gilda HISTORY: Screening mammogram TECHNIQUE: Craniocaudal and mediolateral oblique 3-D tomosynthesis images were obtained and synthetic 2-D images were generated. CAD analysis was submitted and interpreted. COMPARISON: 01/30/2021, 01/27/2020, 11/13/2018 BREAST PARENCHYMAL COMPOSITION: There are scattered areas of fibroglandular density. FINDINGS: There is no suspicious mass, calcification, or architectural distortion to suggest malignan cy in either breast. There has been no suspicious interval change. IMPRESSION: 1. No mammographic evidence of malignancy. 2. Recommend routine screening mammography in one year. BI-RADS Category 1: Negative Reviewed, dictated and finalized at location A.
== END 2022-02-01 10:28 | disposition home or self-care (01) ==
PROVIDERS: PCP Internal Medicine; Visit Provider Obstetrics & Gynecology
DX: Z12.31 Encounter for screening mammogram for malignant neoplasm of breast (principal)
CPT/HCPCS: 77063; 77067

== ENCOUNTER 2022-04-16 12:04 | Outpatient (CLI) | payer MEDICARE, SELFPAY ==
[2022-04-16 12:41] LABS: Anion Gap 9 mmol/L (8-16); Blood Urea Nitrogen 43 mg/dL (7-17); Calcium 9.5 mg/dL (8.4-10.2); Carbon Dioxide 28 mmol/L (22-30); Chloride 98 mmol/L (98-107); Cholesterol 152 mg/dL (0-200); Estimated Glomerular Filt Rate 29; Glucose 84 mg/dL (65-110); HDL Direct 72 mg/dL; Potassium 4.4 mmol/L (3.4-5.0); Sodium 135 mmol/L (137-145); Triglycerides 97 mg/dL (<150)
[2022-04-16 12:42] LABS: Hemoglobin A1C 4.9 % (<5.7)
[2022-04-16 12:53] LABS: LDL Cholesterol Direct 49 mg/dL
[2022-04-16 13:08] LABS: Free T4 Free Thyroxine 1.52 ng/mL (0.78-2.19)
[2022-04-16 13:14] LABS: Thyroid Stimulating Hormone 0.732 uIU/mL (0.465-4.680)
[2022-04-16 13:46] LABS: Vitamin D 25 Hydroxy 69.8 ng/mL
== END 2022-04-16 12:05 | disposition home or self-care (01) ==
PROVIDERS: PCP Internal Medicine; Visit Provider Internal Medicine
DX: E55.9 Vitamin D deficiency, unspecified (principal); Z13.1 Encounter for screening for diabetes mellitus; E03.9 Hypothyroidism, unspecified; Z79.899 Other long term (current) drug therapy; Z13.220 Encounter for screening for lipoid disorders; I10 Essential (primary) hypertension
CPT/HCPCS: 36415; 80048; 80061; 82306; 83036; 84439; 84443

== ENCOUNTER 2022-04-26 14:48 | Outpatient (CLI) | payer MEDICARE, SELFPAY ==
[2022-04-26 15:13] LABS: Anion Gap 13 mmol/L (8-16); Blood Urea Nitrogen 34 mg/dL (7-17); Calcium 9.7 mg/dL (8.4-10.2); Carbon Dioxide 26 mmol/L (22-30); Chloride 98 mmol/L (98-107); Estimated Glomerular Filt Rate 48; Glucose 100 mg/dL (65-110); Potassium 4.5 mmol/L (3.4-5.0); Sodium 137 mmol/L (137-145)
== END 2022-04-26 14:49 | disposition home or self-care (01) ==
PROVIDERS: PCP Internal Medicine; Visit Provider Internal Medicine
DX: R79.89 Other specified abnormal findings of blood chemistry (principal)
CPT/HCPCS: 36415; 80048

== ENCOUNTER 2022-08-07 12:36 | Outpatient (RCR) | payer MEDICARE, SELFPAY ==
[2022-08-07 12:30] VITALS: BMI 20.5
== END 2022-09-28 15:55 | disposition home or self-care (01) ==
LOC: ANHWOC 12:36
PROVIDERS: PCP Internal Medicine; Visit Provider Internal Medicine
DX: S81.802D Unspecified open wound, left lower leg, subsequent encounter (principal)
CPT/HCPCS: 99213; G0463

== ENCOUNTER 2022-09-07 10:33 | Outpatient (CLI) | payer MEDICARE, SELFPAY ==
[2022-09-07 10:10] LABS: Basophils Percent Auto 0.5 % (0.2-1.2); Eosinophils Absolute Auto 0.7 K/mm3 (0-0.3); Eosinophils Percent Auto 10.8 % (0-4.4); Hematocrit 35.5 % (37.0-47.0); Hemoglobin 11.5 g/dL (12.0-15.0); Immature Granulocyte Absolute 0.02 K/mm3 (0.00-0.031); Immature Granulocyte Percent A 0.3 % (0-0.5); Lymphocytes Absolute Auto 1.58 K/mm3 (0.9-3.2); Lymphocytes Percent Auto 24.8 % (18.3-44.2); Mean Corpuscular HGB Conc 32.4 g/dl (32-36); Mean Corpuscular Hemoglobin 32.6 pg (26-34); Mean Corpuscular Volume 100.6 fl (80-100); Mean Platelet Volume 9.1 fl (7.4-10.4); Monocytes Absolute Auto 0.5 K/mm3 (0.1-0.6); Monocytes Percent Auto 8.3 % (2.6-8.5); Neutrophils Absolute Auto 3.5 K/mm3 (1.3-6.7); Neutrophils Percent Auto 55.3 % (45.5-73.1); Platelet Count Result 384 k/mm3 (150-375); Red Blood Count 3.53 M/mm3 (4.2-5.4); Red Cell Distribution Width 13.4 % (11.5-14.5); White Blood Count 6.4 K/mm3 (4.5-10.0)
[2022-09-07 10:25] LABS: Alanine Aminotransferase 37 U/L (6-35); Albumin Level 4.1 g/dL (3.5-5.1); Alkaline Phosphatase 87 U/L (38-126); Anion Gap 8 mmol/L (8-16); Aspartate Amino Transferase 47 U/L (14-36); Bilirubin,Total 0.5 mg/dL (0.2-1.3); Blood Urea Nitrogen 24 mg/dL (7-17); Calcium 8.9 mg/dL (8.4-10.2); Carbon Dioxide 22 mmol/L (22-30); Chloride 104 mmol/L (98-107); Estimated Glomerular Filt Rate 40; Glucose 84 mg/dL (65-110); Potassium 4.6 mmol/L (3.4-5.0); Sodium 134 mmol/L (137-145)
== END 2022-09-07 10:34 | disposition home or self-care (01) ==
LOC: ANHLAB 10:33
PROVIDERS: PCP Internal Medicine; Visit Provider Internal Medicine
DX: K52.9 Noninfective gastroenteritis and colitis, unspecified (principal)
CPT/HCPCS: 36415; 80053; 82438; 84302; 84311; 85025; 87045; 87177; 87209; 87427; 89055

== ENCOUNTER 2022-09-21 11:36 | Inpatient (IN) | payer MEDICARE, SELFPAY ==
[2022-09-21] VITALS (19 sets, daily range): BP systolic 119–161; BP diastolic 77–118; PULSE 97–151; RESP 16–25; TEMP 36.1–37.5; O2SAT 66–98; BMI 21.1
--- NOTE | ~2022-09-21 | XR_ITS ---
EXAMINATION: XR chest 1V portable DATE: 09/21/2022 12:33 INDICATION: Chest pain TECHNIQUE: frontal view of the chest was obtained. COMPARISON: Chest radiograph dated 09/03/2019 FINDINGS: Increased interstitial and hazy airspace opacities throughout both lungs relatively sparing the right apex and left upper lung zone. There appear to be associated subtle peripheral Reynaldo B-lines and wo uld favor pulmonary edema over pneumonia. Minimal blunting at the bilateral costophrenic angles consi stent with small bilateral pleural effusions. No pneumothorax. Cardiomediastinal silhouette is within normal limits for AP technique. IMPRESSION: 1. Diffuse bilateral lower lung predominant mild interstitial and airspace opacities and favor pulmon cam edema over pneumonia. 2. Very small bilateral pleural effusions. Reviewed, dictated and finalized at location B. SPHERIC SCIENTIST IMPRESSION: 1. Diffuse bilateral lower lung predominant mild interstitial and airspace opac ities and favor pulmonary edema over pneumonia. 2. Very small bilateral pleural effusions.
--- NOTE | 2022-09-21 11:40 | ECG_ITS ---
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
[2022-09-21 12:19] LABS: Basophils Absolute Auto 0.1 K/mm3 (0.0-0.1); Basophils Percent Auto 0.7 % (0.2-1.2); Eosinophils Absolute Auto 0.5 K/mm3 (0-0.3); Eosinophils Percent Auto 6.7 % (0-4.4); Hematocrit 30.3 % (37.0-47.0); Hemoglobin 9.9 g/dL (12.0-15.0); Immature Granulocyte Absolute 0.02 K/mm3 (0.00-0.031); Immature Granulocyte Percent A 0.3 % (0-0.5); Lymphocytes Absolute Auto 1.17 K/mm3 (0.9-3.2); Lymphocytes Percent Auto 15.4 % (18.3-44.2); Mean Corpuscular HGB Conc 32.7 g/dl (32-36); Mean Corpuscular Hemoglobin 32.8 pg (26-34); Mean Corpuscular Volume 100.3 fl (80-100); Monocytes Absolute Auto 0.8 K/mm3 (0.1-0.6); Monocytes Percent Auto 9.9 % (2.6-8.5); Neutrophils Absolute Auto 5.1 K/mm3 (1.3-6.7); Platelet Count Result 258 k/mm3 (150-375); Red Blood Count 3.02 M/mm3 (4.2-5.4); Red Cell Distribution Width 14.3 % (11.5-14.5); White Blood Count 7.6 K/mm3 (4.5-10.0)
[2022-09-21] MEDS: dilTIAZem 100 MG/100 ML 100 MG/100 ML BAG IV CONT (12:19)
[2022-09-21 12:29] LABS: Alanine Aminotransferase 36 U/L (6-35); Albumin Level 3.5 g/dL (3.5-5.1); Alkaline Phosphatase 145 U/L (38-126); Anion Gap 7 mmol/L (8-16); Aspartate Amino Transferase 43 U/L (14-36); Bilirubin,Total 0.5 mg/dL (0.2-1.3); Blood Urea Nitrogen 16 mg/dL (7-17); Calcium 8.5 mg/dL (8.4-10.2); Carbon Dioxide 22 mmol/L (22-30); Chloride 108 mmol/L (98-107); Estimated CRCL calculation 39 ml/min; Estimated Glomerular Filt Rate > 60; Glucose 102 mg/dL (65-110); Lipase 147 U/L (23-300); Potassium 4.4 mmol/L (3.4-5.0); Sodium 137 mmol/L (137-145)
[2022-09-21 12:31] LABS: INR 1.8; Prothrombin Time 20.2 Seconds (11.1-14.7)
[2022-09-21 12:40] LABS: Troponin I < 0.012 ng/mL (0.000-0.034)
--- NOTE | 2022-09-21 12:41 | ED.GENADULT ---
HPI - General Adult General Chief complaint: Arrhythmia/Palpitations Stated complaint: elevated heart rate Time Seen by Provider: 09/21/22 11:51 Source: RN notes reviewed History of Present Illness HPI narrative: Patient presents emergency department from home for palpitations. Patient states that home health come to her house today and noted that her heart rate was fast about in the 140 states that she has been feeling short of breath with exertion over the past several days and has felt like her heart has been fast she denies any chest pain but does note the shortness of breath with exertion. States she has a history of atrial fibrillation in the past and is followed by Dr. Preciado states she is on anticoagulation which she has been taking the patient is noted to be on Xarelto she denies any fevers or chills abdominal pain nausea vomiting or any other symptoms Related Data Home Medications Medication Instructions Recorded Confirmed cyanocobalamin (vitamin B-12) 1,000 mcg PO DAILY 09/03/19 09/07/22 1,000 mcg tablet (Vitamin B-12) mirabegron 50 mg tablet,extended 2,500 mg PO DAILY 11/09/20 09/07/22 release 24 hr calcium polycarbophil 625 mg 1,250 mg PO BID 06/12/21 09/07/22 tablet (FiberCon) rivaroxaban 20 mg tablet (Xarelto) 20 mg PO DAILY 09/07/22 09/07/22 vancomycin 250 mg capsule 500 mg PO Q6H 09/07/22 09/07/22 Allergies Allergy/AdvReac Type Severity Reaction Status Date / Time No Known Allergies Allergy Verified 09/07/22 08:55 Review of Systems Review of Systems: Gen.: Denies fevers or chills ENT: Denies congestion Respiratory: Reports shortness of breath CV: Reports palpitations GI: Denies abdominal pain nausea, emesis or diarrhea Musculoskeletal: Denies back pain or muscle pain Neuro: Denies numbness, tingling, weakness or focal weakness Skin: Denies rash Except as documented, all other systems reviewed and negative PMFSH Past Medical History Medical History Adult BMI 19-24 kg/sq m Anxiety Aortic stenosis Benign essential hypertension Blepharitis Blood in stool Cellulitis Chronic anemia Chronic diarrhea CKD (chronic kidney disease) stage 1, GFR 90 ml/min or greater Daily consumption of alcohol Deafness in right ear Dehydration Depression Diarrhea Edema Elevated homocysteine Elevated sed rate 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 Shingles Stasis dermatitis UTI (urinary tract infection) Vitamin B12 deficiency Weakness Surgical History Surgical History History of chest tube placement History of endometrial ablation For dysfunctional uterine bleeding. History of orthopedic surgery ORIF left open femur fracture. S/P cataract surgery Status post total hysterectomy and bilateral salpingo-oophorectomy Family History Family History Mother Hypertension Father Family history of lung cancer Family history of malignant neoplasm of brain Social History Social History Social History: The patient lives in [place] with her dog. She designates her daughter, Margo Koch, as her surrogate decision maker and she wishes to be a full code. She would not, however, want
[2022-09-21 12:52] LABS: Influenza A QL RT-PCR Negative (Negative); Influenza B QL RT-PCR Negative (Negative); RSV RNA, RT-PCR Negative (Negative); SARS-CoV-2 RNA PCR Negative
[2022-09-21 13:14] LABS: NT Pro B Type Natriuretic Pept 8460 pg/mL (19.9-100)
--- NOTE | 2022-09-21 13:33 | PM.IMHP ---
H&P: HPI History of Present Illness Date/Time: 09/21/22 13:33 Chief Complaint: Arrhythmia palpitations Narrative: This is a 77-year-old female patient who has a history of atrial fibrillation and is on Xarelto. The patient came to the emergency room for complaints of palpitations. The patient had home health come today and they noticed that her heart rate was in the 140s. The patient stated that she has been feeling short of breath over the past several days and felt like her heart was racing. She is seen by Dr. Preciado in the past. She denies any fever chills. H&H is 9.9 and 30.3. BNP 8460. Influenza A/B RSV and COVID her own negative. Chest x-ray was read as the following. Diffuse bilateral lower lung predominant mild interstitial and airspace opacities and favor pulmonary edema over pneumonia. 2. Very small bilateral pleural effusions. Cardiology has been consulted and the patient was started on a Cardizem drip. Patient is being admitted to observation status on the date of service of 09/21/2022 Review of Systems Review of Systems: See HPI All systems reviewed & are unremarkable except as noted in HPI and below Constitutional: Constitutional: Reports as per HPI and Reports no additional constitutional complaints Eyes: Eyes: Reports as per HPI and Reports no additional eye complaints ENT: Reports system reviewed and no additional complaints, except as documented and Reports Normal hearing present Cardiovascular: Cardiovascular: Reports no additional cardiovascular complaints Respiratory: Respiratory: Reports no additional respiratory complaints and Reports no additional respiratory complaints Gastrointestinal: Gastrointestinal: Reports as per HPI and Reports no additional gastrointestinal complaints Musculoskeletal: Musculoskeletal: Reports no additional musculoskeletal complaints Integumentary/Breasts: Skin/Breast: Reports system reviewed and no additional complaints, except as docu and Reports as per HPI Neurologic: Reports system reviewed and no additional complaints, except as documented, Reports as per HPI and Reports Normal hearing present Psychiatric: Psychiatric: Reports no additional psychiatric complaints and Reports as per HPI Endocrine: Endocrine: Reports no additional endocrine complaints Hematologic/Lymphatic: Hematologic/Lymphatic: Reports no additional hematologic/lymphatic complaints Allergic/Immunologic: Allergic/Immunologic: Reports no additional allergic/immunologic complaints [facility] Past Medical History Medical History Adult BMI 19-24 kg/sq m Anxiety Aortic stenosis Atrial fibrillation Benign essential hypertension Blepharitis Blood in stool Cellulitis Chronic anemia Chronic diarrhea CKD (chronic kidney disease) stage 1, GFR 90 ml/min or greater Daily consumption of alcohol Deafness in right ear Dehydration Depression Diarrhea Edema Elevated homocysteine Elevated sed rate 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 Shingles Stasis dermatitis UTI (urinary tract infection) Vitamin B12 deficiency Weakness Surgical History Surgical History H/O cataract extraction History of chest tube placement History of endometrial ablation For dysfunctional u
[2022-09-21] MEDS: FUROSEMIDE INJ 40 MG/4 ML VIAL 20 MG IV PUSH (13:39)
--- NOTE | 2022-09-21 13:59 | PM.CNCAR ---
Assessment and Plan Assessment and plan (1) Atrial fibrillation with rapid ventricular response: Code(s): I48.91 - Unspecified atrial fibrillation Status: Acute Assessment and Plan: diagnosed with atrial fibrillation in 2019 with maintenance of sinus rhythm on metoprolol. Had recurrence of atrial fibrillation with symptoms beginning this morning. We will pursue a rhythm control strategy with sotalol since by her history she has only been back in atrial fibrillation since this morning and she has been compliant with her anticoagulation. Will start sotalol loading tonight. Discontinue diltiazem. Discontinue home metoprolol. Continue systemic anticoagulation with apixaban. Plan This plan has been discussed and reviewed with Dr. Preciado and he is in agreement with this plan. History of Present Illness History of Present Illness Consult date/time: 09/21/22 13:59 Requesting physician: Eren Lundy DO Consult reason: atrial fibrillation Reason For Visit: Afib with RVR/CHF Narrative: Ms. Moscoso is a 77-year-old female with a history of paroxysmal atrial fibrillation and hypertension. She was first diagnosed with atrial fibrillation in 2019 when she was hospitalized with symptomatic atrial fibrillation with rapid ventricular response. At that time, she was placed on a beta-rajeev and spontaneously converted to sinus rhythm. Since that time, she has been maintained on low-dose metoprolol as well as apixaban for systemic anticoagulation. Patient has not had any known recurrence of atrial fibrillation since that time. She comes to the hospital today with a chief complaint of shortness of breath. She states that when she awoke from sleep this morning she felt short of breath. She denies feeling any palpitations or chest pain. Her initial ECG in the emergency room showed atrial fibrillation with rapid ventricular response with a heart rate of 137 beats per minute. She has been placed on a diltiazem drip in the emergency department. Currently, she is resting comfortably in her stretcher in the emergency department and does not have any complaints. Review of Systems Review of Systems: All systems reviewed & are unremarkable except as noted in HPI and below PMFSH Past Medical History Medical History Adult BMI 19-24 kg/sq m Anxiety Aortic stenosis Atrial fibrillation Benign essential hypertension Blepharitis Blood in stool Cellulitis Chronic anemia Chronic diarrhea CKD (chronic kidney disease) stage 1, GFR 90 ml/min or greater Daily consumption of alcohol Deafness in right ear Dehydration Depression Diarrhea Edema Elevated homocysteine Elevated sed rate 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 Shingles Stasis dermatitis UTI (urinary tract infection) Vitamin B12 deficiency Weakness Surgical History Surgical History H/O cataract extraction History of chest tube placement History of endometrial ablation For dysfunctional uterine bleeding. History of orthopedic surgery ORIF left open femur fracture. S/P cataract surgery Status post total hysterectomy and bilateral salpingo-oophorectomy Family History Family History (Reviewed 09/21/22 @ 14:57 by Vanessa
[2022-09-21 15:38] LABS: Troponin I < 0.012 ng/mL (0.000-0.034)
--- NOTE | 2022-09-21 16:11 | ADMGEN ---
This patient, Jina Mora, was admitted to IMU Room 209-01. Patient/family oriented to hospital policies and general routines including ID bracelet, bed and alarms, visiting hours, pain management, procedures, bathroom and other care routines, personal items, smoking policy, room service/diet, and visiting hours. Information on how to activate the Rapid Response Team has been discussed. Patient/Family are encouraged to report perceived risks to care and to ask questions if they do not understand what they are told or what they should do.
[2022-09-21 16:49] LABS: Anion Gap 15 mmol/L (8-16); Blood Urea Nitrogen 16 mg/dL (7-17); Calcium 9.2 mg/dL (8.4-10.2); Carbon Dioxide 17 mmol/L (22-30); Chloride 107 mmol/L (98-107); Estimated CRCL calculation 43 ml/min; Estimated Glomerular Filt Rate > 60; Glucose 93 mg/dL (65-110); Magnesium 1.7 mg/dL (1.6-2.3); Potassium 4.7 mmol/L (3.4-5.0); Sodium 139 mmol/L (137-145)
[2022-09-21] MEDS: CHOLESTYRAMINE (W/ SUGAR) 4 GM POWD.PACK PO (17:46)
[2022-09-21 18:44] LABS: Troponin I < 0.012 ng/mL (0.000-0.034)
[2022-09-21] MEDS: MAGNESIUM OXIDE 400 MG TABLET PO (18:55)
[2022-09-21] MEDS: LIPASE/AMYLASE/PROTEASE 12,000 UNITS CAP 3 CAP PO (18:55)
[2022-09-21] MEDS: RIVAROXABAN 20 MG TABLET PO (18:55)
[2022-09-21] MEDS: calcium polycarbophiL 625 MG TABLET 1250 MG PO (18:55)
[2022-09-21] MEDS: SOTALOL HCL 40 MG TABLET PO (20:01)
[2022-09-21] MEDS: ALPRAZolam (*CRX) 0.5 MG TABLET 1 MG PO (20:01)
--- NOTE | 2022-09-21 22:00 | ECG_ITS ---
Measurements Intervals [place] Rate: 109 P: TX: 0 QRS: 22 QRSD: 103 T: -9 QT: 368 QTc: 496 Interpretive Statements ATRIAL FIBRILLATION WITH RAPID VENTRICULAR RESPONSE INCOMPLETE RIGHT BUNDLE BRANCH BLOCK BORDERLINE ST-T WAVE ABNORMALITY- ANT/INF LEADS BASELINE ARTIFACT- I, II, III, AVR, AVL ABNORMAL ECG COMPARED TO ECG 09/21/2022 11:47:17 HEART RATE HAS DECREASED Electronically Signed On 09-22-2022 7:55:54 GAME AUTHOR by Darin Arreola D.O.
[2022-09-22] VITALS (19 sets, daily range): BP systolic 112–148; BP diastolic 68–99; PULSE 98–144; RESP 16–20; TEMP 36.4–36.8; O2SAT 96–100
--- NOTE | 2022-09-22 | ECHO_ITS ---
Patient Info Name: Jina Mora Age: 77 years : 1945 Gender: Female Ht: 64 in Wt: 117 lbs BSA: 1.55 m2 HR: 113 bpm BP: 130 / 68 mmHg Heart Rhythm: Atrial Fibrillation Technical Quality: Good Exam Date: 09/22/2022 9:48 AM Exam Location: [facility] Pulmonary Exam Room: [facility] Patient Status: Inpatient Admit Date: 09/21/2022 Staff Ordering Physician: Vanessa Adhikari Park Maintainer: Naty Roy RDCS Attending Provider: Garfield Pizano MD Referring Physician: Zeynep RAPP; Exam Type: CA echo doppler color flow Study Info Indications - chf Complete two-dimensional, color flow and Doppler transthoracic echocardiogram is performed. Summary 1. Complete two-dimensional, color flow and Doppler transthoracic echocardiogram is performed. 2. Normal left ventricular size and preserved systolic function. 3. Moderately dilated left atrium. 4. Small amount of mitral regurgitation and aortic regurgitation. 5. Sclerotic aortic valve which is not stenotic. Left Ventricle Left ventricular chamber dimension is normal. Left ventricular systolic function is normal, estimated at 50-55%. The left ventricular diastolic function is normal. Right Ventricle Right ventricular chamber dimension is normal. Left Atria Left atrial chamber dimension is moderately enlarged. Right Atria Right atrial chamber dimension is normal. Aortic Valve The aortic valve is trileaflet. There is mild aortic valve sclerosis. There is no aortic valve stenosis. There is trace aortic valve regurgitation. Pulmonic Valve The pulmonic valve is normal. Mitral Valve The mitral valve has normal leaflets. There is trace mitral valve regurgitation. The mitral valve annulus is mildly calcified. Tricuspid Valve The tricuspid valve leaflets are normal. Pericardium/Pleural The pericardium appears normal. Aorta The aortic root size at the sinus of Valsalva is normal. Left Ventricular Outflow Tract Name Value Normal LVOT 2D LVOT Diameter 2.0 cm LVOT Doppler LVOT Peak Gradient 7 mmHg LVOT Mean Gradient 4 mmHg LVOT VTI 24 cm LVOT VTI/AV VTI Ratio 1.0 LVOT Stroke Volume 72 ml LVOT CO 17.7 l/min LVOT CI 11.4 l/min/m2 Pulmonic Valve Name Value Normal PV Doppler PV Peak Gradient 2 mmHg Mitral Valve Name Value Normal MV Doppler MV [place] 821 cm/s2
[2022-09-22] MEDS: ACETAMINOPHEN 500 MG TABLET 1000 MG PO (04:17)
[2022-09-22 05:10] LABS: Basophils Percent Auto 0.4 % (0.2-1.2); Eosinophils Absolute Auto 0.4 K/mm3 (0-0.3); Eosinophils Percent Auto 4.9 % (0-4.4); Hematocrit 26.7 % (37.0-47.0); Hemoglobin 8.9 g/dL (12.0-15.0); Immature Granulocyte Absolute 0.02 K/mm3 (0.00-0.031); Immature Granulocyte Percent A 0.3 % (0-0.5); Lymphocytes Absolute Auto 1.45 K/mm3 (0.9-3.2); Lymphocytes Percent Auto 19.5 % (18.3-44.2); Mean Corpuscular HGB Conc 33.3 g/dl (32-36); Mean Corpuscular Hemoglobin 32.7 pg (26-34); Mean Corpuscular Volume 98.2 fl (80-100); Mean Platelet Volume 9.3 fl (7.4-10.4); Monocytes Absolute Auto 0.8 K/mm3 (0.1-0.6); Monocytes Percent Auto 10.1 % (2.6-8.5); Neutrophils Absolute Auto 4.8 K/mm3 (1.3-6.7); Neutrophils Percent Auto 64.8 % (45.5-73.1); Platelet Count Result 254 k/mm3 (150-375); Red Blood Count 2.72 M/mm3 (4.2-5.4); Red Cell Distribution Width 13.9 % (11.5-14.5); White Blood Count 7.4 K/mm3 (4.5-10.0)
[2022-09-22 05:31] LABS: Alanine Aminotransferase 31 U/L (6-35); Albumin Level 3.4 g/dL (3.5-5.1); Alkaline Phosphatase 116 U/L (38-126); Anion Gap 9 mmol/L (8-16); Aspartate Amino Transferase 33 U/L (14-36); Bilirubin,Total 0.6 mg/dL (0.2-1.3); Blood Urea Nitrogen 13 mg/dL (7-17); Calcium 8.3 mg/dL (8.4-10.2); Carbon Dioxide 22 mmol/L (22-30); Chloride 100 mmol/L (98-107); Estimated CRCL calculation 40 ml/min; Estimated Glomerular Filt Rate > 60; Glucose 91 mg/dL (65-110); Potassium 3.5 mmol/L (3.4-5.0); Sodium 131 mmol/L (137-145)
[2022-09-22] MEDS: LEVOTHYROXINE SODIUM 75 MCG TABLET PO (05:31)
[2022-09-22] MEDS: CHOLESTYRAMINE (W/ SUGAR) 4 GM POWD.PACK PO ×2 (06:31→16:35)
[2022-09-22] MEDS: LIPASE/AMYLASE/PROTEASE 12,000 UNITS CAP 3 CAP PO ×3 (07:52→16:41)
--- NOTE | 2022-09-22 08:24 | PM.PNCARD ---
Progress Note: A&P Assessment and Plan (1) Atrial fibrillation with rapid ventricular response: Code(s): I48.91 - Unspecified atrial fibrillation Status: Acute Plan 77-year-old lady with history of paroxysmal atrial fibrillation she is here with a symptomatic recurrence of her arrhythmia. I will advance her sotalol dosage to 80 mg q.12 hours starting with this morning's dosage. Hopefully this will medically convert her to sinus rhythm. If AFib persists we will need to consider DC cardioversion on Saturday Greyson Preciado MD [facility] Subjective Date/time seen: Date of service: 09/22/22 08:24 Interval history: Follow-up visit in this 77-year-old lady with: Atrial fibrillation with symptomatic recurrence. Patient was primarily short of breath and not really specifically aware of palpitations. We have transitioned her from metoprolol to sotalol which will hopefully restore sinus rhythm. She is chronically anticoagulated. She feels better this morning says that she is less short of breath. Telemetry still demonstrates atrial fibrillation heart rate about 110 Exam Const: General: comfortable and no acute distress Other: Pleasant elderly lady no distress HENMT: Mouth: Yes moist mucous membranes Eyes: Sclera: sclerae normal Pupils: Equal, round and reactive pupils present Neck: Neck: supple and no JVD Resp: Effort & Inspection: normal respiratory effort Auscultation: clear to auscultation bilaterally Cardio: Rhythm: abnormal rhythm irregularly irregular GI: GI Palp: Yes Soft to palpation Auscultation: normal bowel sounds Skin: General skin exam: normal color Neuro: Other: Alert and oriented x3 Extrem: Other: No edema, good distal pulses Objective Data Vital Signs Vital Signs: Vital Signs - 24 hr 09/21/22 11:39 09/21/22 11:53 09/21/22 12:05 Temperature 36.1 C L 36.6 C Pulse Rate 98 129 H Respiratory Rate 18 21 H Blood Pressure 143/113 H 146/107 H Pulse Oximetry 98 98 Oxygen Delivery Room Air Room Air 09/21/22 12:19 09/21/22 12:43 09/21/22 11:50 Temperature Pulse Rate 131 H 127 H 151 H Respiratory Rate 25 H Blood Pressure 134/101 H 137/114 H 161/118 H Pulse Oximetry 95 Oxygen Delivery 09/21/22 12:00 09/21/22 12:30 09/21/22 14:25 Temperature Pulse Rate 131 H 126 H 119 H Respiratory Rate 19 18 Blood Pressure 146/107 H 137/114 H Pulse Oximetry 96 96 Oxygen Delivery 09/21/22 13:45 09/21/22 14:45 09/21/22 15:15 Temperature 36.5 C Pulse Rate 102 H 116 H 112 H Respiratory Rate 24 H 25 H 24 H Blood Pressure 146/100 H 145/101 H 152/85 H Pulse Oximetry 96 66 L 94 Oxygen Delivery 09/21/22 15:39 09/21/22 16:00 09/21/22 16:00 Temperature Pulse Rate 113 H 100 Respiratory Rate Blood Pressure Pulse Oximetry Oxygen Delivery Room Air 09/21/22 18:00 09/21/22 20:01 09/21/22 20:00 Temperature 37.5 C Pulse Rate 100 119 H 97 Respiratory Rate 18 Blood Pressure 129/81 Pulse Oximetry 95 Oxygen Delivery 09/21/22 20:00 09/21/22 23:04 09/21/22 22:00 Temperature 37.3 C Pulse Rate 121 H 116 H 101 H Respiratory Rate 16 Blood Pressure 119/77 Pulse Oximetry 94 Oxygen Delivery 09/22/22 00:00 09/22/22 02:00 09/22/22 04:00 Temperature 36.8 C Pulse Rate 118 H 119 H 117 H Respiratory Rate 16 Blood Pressure 130/68 Pulse Oximetry 100 Oxygen Delivery 09/22/22 04:00 09/22/22 06:00 09/22/22 08:20 Temperature 36.4 C Pulse Rate 114 H 119 H 126 H Respiratory Rate Blood Pressure 140/99 H Pulse Oximetry 97 Oxygen Delivery Intake/Output Intake/Output: Intake & Output 09/19/22 09/20/22 09/21/22 09/22/22 23:59 23:59 23:59 23:59 Intake Total 980 350 Output Total 1350 1250 Balance -370 -900 Meds/Results Medications: Active Medications Generic Name Dose Route Start Last Admin Trade Name Freq PRN Reason Stop Dose Admin Acetaminophen 1,000 mg 08/27
[2022-09-22] MEDS: OLMESARTAN MEDOXOMIL 20 MG TABLET 40 MG PO (08:30)
[2022-09-22] MEDS: calcium polycarbophiL 625 MG TABLET 1250 MG PO ×2 (08:34→16:35)
[2022-09-22] MEDS: CYANOCOBALAMIN 1,000 MCG TABLET 1000 MCG PO (08:35)
[2022-09-22] MEDS: MAGNESIUM OXIDE 400 MG TABLET PO ×2 (08:35→16:36)
[2022-09-22] MEDS: ATORVASTATIN 20 MG TABLET BY MOUTH (08:35)
[2022-09-22] MEDS: FOLIC ACID 1 MG TABLET BY MOUTH (08:36)
[2022-09-22] MEDS: THIAMINE HCL 100 MG TABLET BY MOUTH (08:36)
[2022-09-22] MEDS: SOTALOL HCL 80 MG TABLET PO ×2 (08:46→21:15)
--- NOTE | 2022-09-22 10:45 | ECG_ITS ---
Measurements Intervals [place] Rate: 113 P: NE: 0 QRS: 24 QRSD: 99 T: 8 QT: 357 QTc: 491 Interpretive Statements ATRIAL FIBRILLATION WITH RAPID VENTRICULAR RESPONSE LOW QRS VOLTAGE IN PRECORDIAL LEADS INCOMPLETE RIGHT BUNDLE BRANCH BLOCK BORDERLINE T WAVE ABNORMALITY- ANT/INF LEADS BASELINE WANDER- I, II ABNORMAL ECG COMPARED TO ECG 09/21/2022 21:59:22 NO SIGNIFICANT CHANGES Electronically Signed On 09-22-2022 13:19:06 AUTOMATIC PILOT MECHANIC by Darin Arreola D.O.
--- NOTE | 2022-09-22 13:38 | PM.IMPN ---
Progress Note: A&P Assessment and Plan (1) Atrial fibrillation with rapid ventricular response: Code(s): I48.91 - Unspecified atrial fibrillation Status: Acute Assessment and Plan: -cardiology has been consulted. -currently on sotalol, heart rates improved. -possible cardioversion Saturday (2) Anxiety: Code(s): F41.9 - Anxiety disorder, unspecified Status: Acute Assessment and Plan: -continue with alprazolam (3) Benign essential hypertension: Code(s): I10 - Essential (primary) hypertension Status: Acute Assessment and Plan: -the patient has been on metoprolol that is on hold at this time. Patient had been on a Cardizem drip which is now stopped. -the patient will be on a sotalol loading dose at night. (4) CHF (congestive heart failure): Code(s): I50.9 - Heart failure, unspecified Status: Acute Assessment and Plan: -continue with Lasix -an echo has been ordered. -no recent echo for comparison (5) Chronic diarrhea: Code(s): K52.9 - Noninfective gastroenteritis and colitis, unspecified Status: Acute Assessment and Plan: -continue with Questran (6) CKD (chronic kidney disease) stage 1, GFR 90 ml/min or greater: Code(s): N18.1 - Chronic kidney disease, stage 1 Status: Acute Assessment and Plan: -patient's GFR is greater than 60 and BUN and creatinine are within normal limits. (7) Hypothyroidism (acquired): Code(s): E03.9 - Hypothyroidism, unspecified Status: Acute (8) Mixed hyperlipidemia: Code(s): E78.2 - Mixed hyperlipidemia Status: Acute Assessment and Plan: Check thyroid level continue with levothyroxine. (9) Pancreatic insufficiency: Code(s): K86.89 - Other specified diseases of pancreas Status: Acute Assessment and Plan: -continue with Creon. Subjective Date/time seen: 09/22/22 13:38 No new complaints, rates controlled Exam Const: General: cooperative, healthy appearing, comfortable, no acute distress, well developed, alert, awake, Physically active, average body habitus, well nourished and thin Nutritional Appearance: average body habitus, well nourished and thin Orientation/consciousness: oriented to person, oriented to place, oriented to time and patient oriented x3 Limitations: no limitations HENMT: Head: normal to inspection, No palpable skull fracture present, normocephalic and atraumatic Ears: hearing grossly normal bilaterally and external ears normal Face/Nose/Sinus: Normal external nose present and Normal nares present Eyes: General: appearance normal, both eyes and all related structures Alignment and Position: alignment normal Periorbital: periorbital findings normal Eyelids: eyelids normal Sclera: sclerae normal Pupils: Equal, round and reactive pupils present EOM: EOMs intact bilaterally Neck: Neck: normal visual inspection, full ROM, no lymphadenopathy, trachea midline and supple Chest: Chest palpation & inspection: normal inspection of the chest Resp: Effort & Inspection: normal respiratory effort Auscultation: clear to auscultation bilaterally Percussion: percussion normal Cardio: Palpation: normal PMI Rate: tachycardic Rhythm: abnormal rhythm Heart sounds: S1 normal heart sound present and S2 normal heart sound present Peripheral pulses: Peripheral pulses 2+ throughout Other: AFib with RVR GI: Inspection: normal to inspection Auscultation: normal bowel sounds Rectal Exam: deferred Back/Spine/Pelvis: Cervical Spine: cervical ROM normal Skin: General skin exam: normal color Lesions: no lesions Rashes: no rashes Trauma: no lacerations or abrasions Wounds: no wounds Hair: normal Nails: normal Neuro: General: oriented to person, oriented to place, oriented to time and patient oriented x3 Cranial nerves: Yes Equal, round and reactive pupils present and Yes Normal hearing present Cognition (Neuro): normal cogn
[2022-09-22] MEDS: RIVAROXABAN 20 MG TABLET PO (16:36)
[2022-09-22 17:08] LABS: Anion Gap 4 mmol/L (8-16); Blood Urea Nitrogen 18 mg/dL (7-17); Calcium 8.4 mg/dL (8.4-10.2); Carbon Dioxide 24 mmol/L (22-30); Chloride 102 mmol/L (98-107); Estimated CRCL calculation 36 ml/min; Estimated Glomerular Filt Rate 54; Glucose 99 mg/dL (65-110); Magnesium 1.6 mg/dL (1.6-2.3); Potassium 3.8 mmol/L (3.4-5.0); Sodium 130 mmol/L (137-145)
[2022-09-22] MEDS: DIGOXIN INJ 250 MCG/ML 2 ML AMP (*BKC) 500 MCG IV PUSH (18:41)
[2022-09-22] MEDS: ALPRAZolam (*CRX) 0.5 MG TABLET 1 MG PO (21:15)
--- NOTE | 2022-09-22 23:15 | ECG_ITS ---
Measurements Intervals [place] Rate: 115 P: CO: 0 QRS: 20 QRSD: 100 T: -37 QT: 313 QTc: 434 Interpretive Statements ATRIAL FIBRILLATION WITH RAPID VENTRICULAR RESPONSE LOW QRS VOLTAGE IN PRECORDIAL LEADS INCOMPLETE RIGHT BUNDLE BRANCH BLOCK NONSPECIFIC ST & T-WAVE ABNORMALITY- ANT/INF LEADS ABNORMAL ECG COMPARED TO ECG 09/22/2022 11:08:58 NO SIGNIFICANT CHANGES Electronically Signed On 09-23-2022 7:41:07 SPINNING MULE OPERATOR by Darin Arreola D.O.
[2022-09-23] VITALS (18 sets, daily range): BP systolic 130–155; BP diastolic 74–100; PULSE 90–126; RESP 16–20; TEMP 36.2–36.8; O2SAT 95–100
[2022-09-23] MEDS: LEVOTHYROXINE SODIUM 75 MCG TABLET PO (05:24)
[2022-09-23] MEDS: CHOLESTYRAMINE (W/ SUGAR) 4 GM POWD.PACK PO ×2 (06:29→16:48)
[2022-09-23] MEDS: LIPASE/AMYLASE/PROTEASE 12,000 UNITS CAP 3 CAP PO ×3 (07:53→16:47)
[2022-09-23] MEDS: ATORVASTATIN 20 MG TABLET BY MOUTH (08:57)
[2022-09-23] MEDS: THIAMINE HCL 100 MG TABLET BY MOUTH (08:57)
[2022-09-23] MEDS: FOLIC ACID 1 MG TABLET BY MOUTH (08:57)
[2022-09-23] MEDS: CYANOCOBALAMIN 1,000 MCG TABLET 1000 MCG PO (08:58)
[2022-09-23] MEDS: calcium polycarbophiL 625 MG TABLET 1250 MG PO ×2 (08:58→16:47)
[2022-09-23] MEDS: MAGNESIUM OXIDE 400 MG TABLET PO ×2 (08:58→16:47)
[2022-09-23] MEDS: OLMESARTAN MEDOXOMIL 20 MG TABLET 40 MG PO (08:59)
[2022-09-23] MEDS: SOTALOL HCL 80 MG TABLET PO ×2 (08:59→20:52)
--- NOTE | 2022-09-23 11:00 | ECG_ITS ---
Measurements Intervals [place] Rate: 104 P: ID: 0 QRS: 17 QRSD: 101 T: -26 QT: 355 QTc: 468 Interpretive Statements ATRIAL FIBRILLATION WITH RAPID VENTRICULAR RESPONSE INCOMPLETE RIGHT BUNDLE BRANCH BLOCK BORDERLINE ST-T WAVE ABNORMALITY- ANT/INF LEADS BASELINE WANDER- I, II, AVR, AVL, AVF, V1, V3 ABNORMAL ECG COMPARED TO ECG 09/22/2022 23:05:37 NO SIGNIFICANT CHANGES Electronically Signed On 09-23-2022 15:20:13 ICICLE MACHINE OPERATOR by Darin Arreola D.O.
--- NOTE | 2022-09-23 11:28 | P.PNIM_ITS ---
Progress Note: A&P Assessment and Plan (1) Atrial fibrillation with rapid ventricular response: Code(s): I48.91 - Unspecified atrial fibrillation Status: Acute Assessment and Plan: -cardiology has been consulted. -currently on sotalol, heart rates improved. -possible cardioversion Saturday (2) Anxiety: Code(s): F41.9 - Anxiety disorder, unspecified Status: Acute Assessment and Plan: -continue with alprazolam (3) Benign essential hypertension: Code(s): I10 - Essential (primary) hypertension Status: Acute Assessment and Plan: -the patient has been on metoprolol that is on hold at this time. Patient had been on a Cardizem drip which is now stopped. -the patient will be on a sotalol loading dose at night. (4) CHF (congestive heart failure): Code(s): I50.9 - Heart failure, unspecified Status: Acute Assessment and Plan: -continue with Lasix -an echo has been ordered. -no recent echo for comparison (5) Chronic diarrhea: Code(s): K52.9 - Noninfective gastroenteritis and colitis, unspecified Status: Acute Assessment and Plan: -continue with Questran (6) CKD (chronic kidney disease) stage 1, GFR 90 ml/min or greater: Code(s): N18.1 - Chronic kidney disease, stage 1 Status: Acute Assessment and Plan: -patient's GFR is greater than 60 and BUN and creatinine are within normal limits. (7) Hypothyroidism (acquired): Code(s): E03.9 - Hypothyroidism, unspecified Status: Acute (8) Mixed hyperlipidemia: Code(s): E78.2 - Mixed hyperlipidemia Status: Acute Assessment and Plan: Check thyroid level continue with levothyroxine. (9) Pancreatic insufficiency: Code(s): K86.89 - Other specified diseases of pancreas Status: Acute Assessment and Plan: -continue with Creon. Subjective Date/time seen: 09/23/22 11:28 no new complaints hr still elevated at times Exam Const: General: cooperative, healthy appearing, comfortable, no acute distress, well developed, alert, awake, Physically active, average body habitus, well nourished and thin Nutritional Appearance: average body habitus, well nourished and thin Orientation/consciousness: oriented to person, oriented to place, oriented to time and patient oriented x3 Limitations: no limitations HENMT: Head: normal to inspection, No palpable skull fracture present, normocephalic and atraumatic Ears: hearing grossly normal bilaterally and external ears normal Face/Nose/Sinus: Normal external nose present and Normal nares present Eyes: General: appearance normal, both eyes and all related structures Alignment and Position: alignment normal Periorbital: periorbital findings normal Eyelids: eyelids normal Sclera: sclerae normal Pupils: Equal, round and reactive pupils present EOM: EOMs intact bilaterally Neck: Neck: normal visual inspection, full ROM, no lymphadenopathy, trachea midline and supple Chest: Chest palpation & inspection: normal inspection of the chest Resp: Effort & Inspection: normal respiratory effort Auscultation: clear to auscultation bilaterally Percussion: percussion normal Cardio: Palpation: normal PMI Rate: tachycardic Rhythm: abnormal rhythm Heart sounds: S1 normal heart sound present and S2 normal heart sound present Peripheral pulses: Peripheral pulses 2+ throughout Other: AFib with RVR GI: Inspection: normal to inspection Auscultation: normal bowel so
--- NOTE | 2022-09-23 12:08 | PM.PNCARD ---
Progress Note: A&P Assessment and Plan (1) Paroxysmal A-fib: Code(s): I48.0 - Paroxysmal atrial fibrillation Status: Acute Plan Will continue the patient on regimen of sotalol and anticoagulation. Anticipate DC cardioversion tomorrow unless she medically convert before that. Greyson Preciado MD [facility] Subjective Date/time seen: Date of service: 09/23/22 12:08 Interval history: This is a 77-year-old woman with: Paroxysmal atrial fibrillation admitted with a symptomatic recurrence of her arrhythmia. She has been transition to sotalol and persistent atrial fib although she is asymptomatic. Exam Const: General: comfortable and no acute distress Other: Pleasant elderly lady no distress of any kind, visiting with family HENMT: Mouth: Yes moist mucous membranes Eyes: Sclera: sclerae normal Pupils: Equal, round and reactive pupils present Neck: Neck: supple and no JVD Resp: Effort & Inspection: normal respiratory effort Auscultation: clear to auscultation bilaterally Other: No rales no wheezing Cardio: Rhythm: abnormal rhythm irregularly irregular GI: GI Palp: Yes Soft to palpation Auscultation: normal bowel sounds Skin: General skin exam: normal color Neuro: Other: Alert and oriented cognitively intact Extrem: Other: No edema, good distal pulses Objective Data Vital Signs Vital Signs: Vital Signs - 24 hr 09/22/22 14:00 09/22/22 15:55 09/22/22 16:00 Temperature 36.5 C Pulse Rate 113 H 140 H Respiratory Rate 20 Blood Pressure 132/87 Pulse Oximetry 96 96 Oxygen Delivery Room Air 09/22/22 16:00 09/22/22 18:00 09/22/22 18:41 Temperature Pulse Rate 122 H 120 H 144 H Respiratory Rate Blood Pressure Pulse Oximetry Oxygen Delivery 09/22/22 20:00 09/22/22 21:15 09/22/22 20:00 Temperature 36.4 C Pulse Rate 118 H 116 H 118 H Respiratory Rate 16 16 Blood Pressure 148/97 H Pulse Oximetry 96 96 Oxygen Delivery Room Air 09/22/22 20:00 09/22/22 22:00 09/23/22 00:00 Temperature 36.8 C Pulse Rate 134 H 121 H 122 H Respiratory Rate 16 Blood Pressure 130/74 Pulse Oximetry 97 Oxygen Delivery 09/22/22 23:30 09/23/22 00:00 09/23/22 01:55 Temperature Pulse Rate 122 H 110 H 112 H Respiratory Rate 16 Blood Pressure Pulse Oximetry 97 Oxygen Delivery Room Air 09/23/22 03:44 09/23/22 03:14 09/23/22 04:00 Temperature 36.6 C Pulse Rate 102 H 102 H 126 H Respiratory Rate 16 16 Blood Pressure 134/81 Pulse Oximetry 95 95 Oxygen Delivery Room Air 09/23/22 05:49 09/23/22 08:00 09/23/22 08:59 Temperature 36.6 C Pulse Rate 108 H 107 H 119 H Respiratory Rate 18 Blood Pressure 155/95 H Pulse Oximetry 96 Oxygen Delivery 09/23/22 08:00 09/23/22 12:00 Temperature Pulse Rate 119 H 111 H Respiratory Rate 18 Blood Pressure Pulse Oximetry 96 Oxygen Delivery Room Air Room Air Intake/Output Intake/Output: Intake & Output 09/20/22 09/21/22 09/22/22 09/23/22 23:59 23:59 23:59 23:59 Intake Total 980 1620 Output Total 1350 2300 820 Balance -370 -684 -820 Meds/Results Medications: Active Medications Generic Name Dose Route Start Last Admin Trade Name Freq PRN Reason Stop Dose Admin Acetaminophen 1,000 mg 09/22/22 04:06 09/22/22 04:17 Acetaminophen 500 Mg Tablet PO 1,000 mg Q6H PRN Administration Mild Pain (1-3) or Fever Alprazolam 1 mg 09/21/22 16:34 09/22/22 21:15 Alprazolam (*Crx) 0.5 Mg Tablet PO 1 mg TID PRN Administration anxiety Lipase/Protease/Amylase 3 cap 09/21/22 17:20 09/23/22 11:29 Lipase/Amylase/Protease 12,000 Units Cap PO 3 cap TID EDNA Administration Atorvastatin Calcium 20 mg 09/22/22 09:00 09/23/22 08:57 Atorvastatin 20 Mg Tablet BY MOUTH 20 mg DAILY EDNA Administration Calcium Polycarbophil 1,250 mg 09/21/22 17:00 09/23/22 08:58 Calcium Polycarbophil 625 Mg Tablet PO 1,250 mg
[2022-09-23] MEDS: RIVAROXABAN 20 MG TABLET PO (16:47)
[2022-09-23 17:16] LABS: Anion Gap 8 mmol/L (8-16); Blood Urea Nitrogen 13 mg/dL (7-17); Calcium 8.7 mg/dL (8.4-10.2); Carbon Dioxide 23 mmol/L (22-30); Chloride 102 mmol/L (98-107); Estimated CRCL calculation 44 ml/min; Estimated Glomerular Filt Rate > 60; Glucose 95 mg/dL (65-110); Magnesium 1.6 mg/dL (1.6-2.3); Potassium 3.6 mmol/L (3.4-5.0); Sodium 133 mmol/L (137-145)
[2022-09-23] MEDS: ALPRAZolam (*CRX) 0.5 MG TABLET 1 MG PO (20:57)
--- NOTE | 2022-09-23 22:58 | ECG_ITS ---
Measurements Intervals [place] Rate: 106 P: [place]: 0 QRS: 38 QRSD: 110 T: -32 QT: 352 QTc: 469 Interpretive Statements ATRIAL FIBRILLATION WITH RAPID VENTRICULAR RESPONSE LOW QRS VOLTAGE IN PRECORDIAL LEADS INCOMPLETE RIGHT BUNDLE BRANCH BLOCK NONSPECIFIC ST & T-WAVE ABNORMALITY- ANT/INF LEADS ABNORMAL ECG COMPARED TO ECG 09/23/2022 11:15:20 NO SIGNIFICANT CHANGES Electronically Signed On 09-24-2022 6:34:57 EVENT AV OPERATOR by Darin Arreola D.O.
[2022-09-24] VITALS (19 sets, daily range): BP systolic 123–174; BP diastolic 69–111; PULSE 57–119; RESP 16–23; TEMP 36.4–36.8; O2SAT 96–100
[2022-09-24] MEDS: LEVOTHYROXINE SODIUM 75 MCG TABLET PO (05:49)
[2022-09-24] MEDS: SOTALOL HCL 80 MG TABLET PO (08:20)
--- NOTE | 2022-09-24 08:49 | ECG_ITS ---
Measurements Intervals [place] Rate: 60 P: 83 [place]: 157 QRS: 18 QRSD: 101 T: -50 QT: 443 QTc: 443 Interpretive Statements SINUS RHYTHM ATRIAL PREMATURE COMPLEX LOW QRS VOLTAGE IN PRECORDIAL LEADS INCOMPLETE RIGHT BUNDLE BRANCH BLOCK ST-T WAVE ABNORMALITY IN ANTERIOR LEADS- CONSIDER ISCHEMIA ABNORMAL ECG COMPARED TO ECG 09/24/2022 08:54:15 [address]M NOW PRESENT [address]-T WAVE ABNORMALITY IS MORE SIGNIFICANT Electronically Signed On 09-24-2022 12:01:30 TRANSPORTATION MODELER by Darin Arreola D.O.
--- NOTE | 2022-09-24 09:43 | WPDCARDPROC ---
Cardiac Cath Procedure Note Date of procedure:: 09/24/22 Performing physician:: Greyson Preciado MD Indication:: Persistent atrial fibrillation Brief clinical history:: This is a 77-year-old patient with a history of paroxysmal atrial fibrillation. She has a symptomatically persistent recurrence of the arrhythmia and has been loaded with sotalol in the hospital. Attempt at restoring sinus rhythm electrically has been recommended for this morning. She is anticoagulated with Xarelto. Procedure Procedure performed:: DC cardioversion Sedation/Medication given:: Propofol total dosage of 40 mg Estimated blood loss:: No blood loss Procedure note:: Patient was brought to the cardiac catheterization lab holding area where the defibrillator patches were placed in the AP position. She had nasal cannula oxygen in place and IV established in the left upper extremity. She then received a dose of propofol 1 bolus of 40 mg provided excellent sedation. She was counter shocked with 200 joules in a synchronized fashion x1 shock which restored sinus rhythm. There was a significant amount of atrial at some ventricular ectopic activity after restoring sinus rhythm. Findings:: As above Conclusion:: Successful uncomplicated DC cardioversion of atrial fibrillation to sinus rhythm with ectopic activity using 200 joules x1 shock. Greyson Preciado MD [facility]
--- NOTE | 2022-09-24 09:45 | ECG_ITS ---
Measurements Intervals [place] Rate: 105 P: [place]: 0 QRS: 22 QRSD: 95 T: -34 QT: 334 QTc: 442 Interpretive Statements ATRIAL FIBRILLATION WITH RAPID VENTRICULAR RESPONSE LOW QRS VOLTAGE IN PRECORDIAL LEADS INCOMPLETE RIGHT BUNDLE BRANCH BLOCK BORDERLINE ST-T WAVE ABNORMALITY- ANT/INF LEADS ABNORMAL ECG COMPARED TO ECG 09/23/2022 23:04:51 NO SIGNIFICANT CHANGES Electronically Signed On 09-24-2022 8:57:05 BINMAN by Darin Arreola D.O.
--- NOTE | 2022-09-24 09:59 | SUR.PHASEII ---
Pt resting comfortably in bed, family brought into room from waiting room, pt awake and talking, denies pain, tolerated procedure well, pt in sinus rhythm, VSS, NAD noted, continue to monitor.
--- NOTE | 2022-09-24 12:22 | PM.DS ---
DS: Admitting Diagnosis Discharge Date September 24, 2022 Admitting Diagnosis AFib DS: Summary Hospital Course Hospital Course: Patient is 77 year female came with AFib with RVR. Started on sotalol heart rate had improved but was still in AFib. Underwent cardioversion and now in sinus rhythm. Otherwise she can be discharged home. Follow Cardiology she is on anticoagulation Time Spent with Patient Time attestation: Total time spent providing and/or coordinating discharge services: DS: Data Data Completed and Pending Labs on day of discharge: Labs from last 24 hours 09/23/22 16:53 Sodium 133 L Potassium 3.6 Chloride 102 Carbon Dioxide 23 Anion Gap 8 BUN 13 D Creatinine 0.80 Estim Creat Clear Calc 44 Estimated GFR > 60 Glucose 95 Calcium 8.7 Magnesium 1.6 Discharge Plan Discharge Attending physician on discharge: Greyson Milan Consulting providers: Greyson Preciado Discharging Clinician: Greyson Milan Patient Disposition: Home Health Service Activity: no preference Diet: as tolerated Discharge Instructions: Per Care Coordination Patient is current with [facility] for RN, PT, OT Please resume Home Health services at discharge. [phone] Patient Instructions: Antibiotic Form, Rivaroxaban (By mouth) Stand Alone Forms: General Discharge Information Follow-up/Referrals: Greyson Preciado MD [Physician] - Jon Wills MD [Primary Care Provider] - Discharge Medications: New sotalol 80 mg Tablet 80 mg PO Q12HR 30 Days Qty: 60 0RF Continued Creon 36,000-114,000- 180,000 unit capsule,delayed release(DR/EC) 1 cap PO TID Qty: 270 3RF Rx Instructions: administer with meals and/or snacks Xarelto 20 mg tablet 20 mg PO DAILY Rx Instructions: must administer with evening meal cholestyramine (with sugar) 4 gram powder in packet 4 g PO BID Qty: 60 1RF Rx Instructions: administer w/meal; avoid other meds within 1hr before or 4-6hr after dose. calcium polycarbophil [FiberCon] 625 mg tablet 1,250 mg PO BID cyanocobalamin (vitamin B-12) [Vitamin B-12] 1,000 mcg Tablet 1,000 mcg PO DAILY metoprolol tartrate 25 mg Tablet 25 mg PO Q12HR Qty: 60 3RF thiamine HCl (vitamin B1) [Vitamin B-1] 100 mg tablet See Rx Instructions .ROUTE .COMPLEX Qty: 90 3RF Dose Instruction: TAKE 1 TABLET EVERY MORNING Rx Instructions: TAKE 1 TABLET EVERY MORNING magnesium oxide 400 mg (241.3 mg magnesium) tablet 400 mg PO BID Qty: 180 3RF levothyroxine 75 mcg tablet 75 mcg PO DAILY Qty: 90 3RF olmesartan 40 mg tablet 40 mg PO DAILY Qty: 90 3RF alprazolam 1 mg tablet 1 mg PO TID PRN (Reason: anxiety) Qty: 90 1RF folic acid 1 mg tablet See Rx Instructions .ROUTE .COMPLEX Qty: 90 1RF Dose Instruction: TAKE 1 TABLET DAILY Rx Instructions: TAKE 1 TABLET DAILY atorvastatin 20 mg tablet See Rx Instructions .ROUTE .COMPLEX Qty: 90 0RF Dose Instruction: TAKE 1 TABLET DAILY Rx Instructions: TAKE 1 TABLET DAILY Date of admission: 09/22/22 13:31 Primary Care Provider: Jon Wills Admitting Provider: Garfield Pizano Attending physician on admission: Garfield Pizano Condition: Guarded Prognosis
--- NOTE | 2022-09-24 12:52 | P.CDI_ITS ---
CDI Query Clarified Diagnosis Clarified Diagnosis: Elevated BNP on 09/21/22 lab work. CHF noted on assessment and plan. Pulmonary edema noted on 09/21/22 chest xray. Please specify type and acuity of heart failure if known. * Acute * Chronic * Acute on Chronic * Unknown * Systolic * Diastolic * Combined Systolic and Diastolic * Unknown
--- NOTE | 2022-09-24 12:52 | WPDCDIQUERY2 ---
CDI Query Clarified Diagnosis Clarified Diagnosis: Elevated BNP on 09/21/22 lab work. CHF noted on assessment and plan. Pulmonary edema noted on 09/21/22 chest xray. Please specify type and acuity of heart failure if known. Acute Chronic Acute on Chronic Unknown Systolic Diastolic Combined Systolic and Diastolic Unknown
[2022-09-24] MEDS: LIPASE/AMYLASE/PROTEASE 12,000 UNITS CAP 3 CAP PO (13:17)
[2022-09-24] MEDS: ATORVASTATIN 20 MG TABLET BY MOUTH (13:19)
[2022-09-24] MEDS: OLMESARTAN MEDOXOMIL 20 MG TABLET 40 MG PO (13:19)
[2022-09-24] MEDS: calcium polycarbophiL 625 MG TABLET 1250 MG PO (13:19)
[2022-09-24] MEDS: THIAMINE HCL 100 MG TABLET BY MOUTH (13:20)
[2022-09-24] MEDS: CYANOCOBALAMIN 1,000 MCG TABLET 1000 MCG PO (13:20)
[2022-09-24] MEDS: FOLIC ACID 1 MG TABLET BY MOUTH (13:20)
[2022-09-24] MEDS: MAGNESIUM OXIDE 400 MG TABLET PO (13:20)
== END 2022-09-24 15:48 | disposition home health service (06) | DRG 309 ==
LOC: ANHED 13:17 → ANHIMU 14:16
PROVIDERS: Nurse Practitioner; Specialist; Admitting Provider Internal Medicine; Emergency Provider Emergency Medicine; PCP Internal Medicine; Visit Provider Chiropractor
PROC: 5A2204Z Restoration of Cardiac Rhythm, Single (ICD-10-PCS; principal; 2022-09-24 09:30)
DX: I48.0 Paroxysmal atrial fibrillation (principal); I13.0 Hypertensive heart and chronic kidney disease with heart failure and stage 1 through stage 4 chronic kidney disease, or unspecified chronic kidney disease; F41.9 Anxiety disorder, unspecified; E78.2 Mixed hyperlipidemia; I50.9 Heart failure, unspecified; K52.9 Noninfective gastroenteritis and colitis, unspecified; N18.1 Chronic kidney disease, stage 1; E03.9 Hypothyroidism, unspecified; K86.89 Other specified diseases of pancreas; Z79.01 Long term (current) use of anticoagulants; Z20.822 Contact with and (suspected) exposure to COVID-19; Z87.891 Personal history of nicotine dependence; Z79.899 Other long term (current) drug therapy; Z82.49 Family history of ischemic heart disease and other diseases of the circulatory system; Z80.1 Family history of malignant neoplasm of trachea, bronchus and lung; Z80.8 Family history of malignant neoplasm of other organs or systems
CPT/HCPCS: 36415; 71045; 80048; 80053; 83690; 83735; 83880; 84443; 84484; 85025; 85610; 85730; 87637; 92960; 93005; 93306; 96365; 96375; 97161; 97165; 99285; A9270; G0378; J1160; J1940; J2704; J7040

== ENCOUNTER 2022-09-27 14:27 | Outpatient (CLI) | payer MEDICARE, SELFPAY ==
[2022-09-27 15:14] LABS: Cholesterol 134 mg/dL (0-200); HDL Direct 54 mg/dL; Triglycerides 92 mg/dL (<150)
[2022-09-27 15:25] LABS: LDL Cholesterol Direct 49 mg/dL
[2022-09-27 15:50] LABS: Free T4 Free Thyroxine 1.65 ng/mL (0.78-2.19); Vitamin D 25 Hydroxy 46.9 ng/mL
[2022-09-27 19:31] LABS: Hemoglobin A1C 4.9 % (<5.7)
== END 2022-09-27 14:28 | disposition home or self-care (01) ==
LOC: ANHLAB 14:28
PROVIDERS: PCP Internal Medicine; Visit Provider Internal Medicine
DX: E55.9 Vitamin D deficiency, unspecified (principal); Z13.29 Encounter for screening for other suspected endocrine disorder; Z13.220 Encounter for screening for lipoid disorders; Z79.899 Other long term (current) drug therapy; Z13.1 Encounter for screening for diabetes mellitus; E03.9 Hypothyroidism, unspecified
CPT/HCPCS: 36415; 80061; 82306; 83036; 84439; 84443

== ENCOUNTER 2022-10-25 12:11 | Outpatient (CLI) | payer MEDICARE, SELFPAY ==
[2022-10-25 13:18] LABS: Basophils Percent Auto 0.6 % (0.2-1.2); Eosinophils Absolute Auto 0.2 K/mm3 (0-0.3); Eosinophils Percent Auto 2.6 % (0-4.4); Hematocrit 33.1 % (37.0-47.0); Hemoglobin 10.5 g/dL (12.0-15.0); Immature Granulocyte Absolute 0.01 K/mm3 (0.00-0.031); Immature Granulocyte Percent A 0.2 % (0-0.5); Lymphocytes Percent Auto 20.2 % (18.3-44.2); Mean Corpuscular HGB Conc 31.7 g/dl (32-36); Mean Corpuscular Hemoglobin 32.6 pg (26-34); Mean Corpuscular Volume 102.8 fl (80-100); Monocytes Absolute Auto 0.6 K/mm3 (0.1-0.6); Monocytes Percent Auto 9.6 % (2.6-8.5); Neutrophils Absolute Auto 4.3 K/mm3 (1.3-6.7); Neutrophils Percent Auto 66.8 % (45.5-73.1); Platelet Count Result 191 k/mm3 (150-375); Red Blood Count 3.22 M/mm3 (4.2-5.4); Red Cell Distribution Width 14.1 % (11.5-14.5); White Blood Count 6.5 K/mm3 (4.5-10.0)
[2022-10-25 13:31] LABS: Alanine Aminotransferase 57 U/L (6-35); Albumin Level 4.3 g/dL (3.5-5.1); Alkaline Phosphatase 76 U/L (38-126); Amylase 119 U/L (30-110); Anion Gap 8 mmol/L (8-16); Aspartate Amino Transferase 59 U/L (14-36); Bilirubin,Total 0.5 mg/dL (0.2-1.3); Blood Urea Nitrogen 23 mg/dL (7-17); Calcium 9.3 mg/dL (8.4-10.2); Carbon Dioxide 27 mmol/L (22-30); Chloride 104 mmol/L (98-107); Estimated Glomerular Filt Rate > 60; Glucose 90 mg/dL (65-110); Lactate Dehydrogenase 198 U/L (120-246); Lipase 280 U/L (23-300); Potassium 4.8 mmol/L (3.4-5.0); Sodium 139 mmol/L (137-145)
[2022-10-25 13:38] LABS: Prealbumin 20.4 mg/dL (17.6-36.0)
[2022-10-25 13:47] LABS: Free T4 Free Thyroxine 1.55 ng/mL (0.78-2.19)
== END 2022-10-25 12:12 | disposition home or self-care (01) ==
PROVIDERS: PCP Internal Medicine; Visit Provider Internal Medicine
DX: E03.9 Hypothyroidism, unspecified (principal); Z79.899 Other long term (current) drug therapy; R63.4 Abnormal weight loss
CPT/HCPCS: 36415; 80053; 82150; 83615; 83690; 84134; 84439; 84443; 85025

== ENCOUNTER 2022-11-09 12:36 | Outpatient (CLI) | payer MEDICARE, SELFPAY ==
--- NOTE | ~2022-11-09 | MR_ITS ---
EXAMINATION: MR MRCP wo/w con/w 3D wo ind DATE: 11/09/2022 14:20 INDICATION: Abnormal weight loss. Pancreatic cyst. TECHNIQUE: Magnetic resonance imaging (MRI) of the abdomen was performed without and with 10 mL Multi Singh intravenous contrast. Sequences included coronal T2-weighted FS FSE, coronal T2-weighted FSE, a xial T1-weighted LAVA, coronal FS FIESTA, axial dual-echo T1-weighted SPGR, coronal lava-FLEX, sagitt al T2-weighted FSE, axial T2-weighted FSE, and axial DWI. Thick-slab T2-weighted FSE images were obta ined for magnetic resonance cholangiopancreatography (MRCP). Maximum intensity projection 3-D reconst ructions of the volumetric data were created by the technologist. Postcontrast sequences included cor onal LAVA-flex and time course of axial T1-weighted LAVA. COMPARISON: Abdomen MRI 02/22/2021, 06/25/2018 FINDINGS: ABDOMEN MRI: There is mild intrahepatic biliary duct dilatation. There are gallstones in the gallblad bart without, which is normal in size. The spleen is normal. There are 4 cystic lesions in the pancrea s measuring up to 14 mm. Two of the lesions communicate with the main pancreatic duct. There is no en hancing solid component. The adrenal glands are normal. There is cortical thinning of the kidneys. Th ere are cysts in left kidney measuring up to 2.2 cm . There are no dilated loops of bowel. There are no pathologically enlarged lymph nodes. There is no free intraperitoneal fluid. ABDOMEN MRCP: The common duct is dilated to 14 mm. No choledocholithiasis. IMPRESSION: 1. Chronic intrahepatic and extrahepatic biliary duct dilatation with dilatation of the common duct t o 14 mm, increased from 11 mm on 02/22/2021. No choledocholithiasis. 2. 4 cystic lesions of the pancreas measuring up to 14 mm, stable from 06/15/2018, probably benign. C onsider abdomen MRI without and with contrast in 2 years. 3. Cholelithiasis. Reviewed, dictated and finalized at location A. IMPRESSION: 1. Chronic intrahepatic and extrahepatic biliary duct dilatation with dilatatio n of the common duct to 14 mm, increased from 11 mm on 02/22/2021. No choledocho lithiasis. 2. 4 cystic lesions of the pancreas measuring up to 14 mm, stable from 06/15/20 18, probably benign. Consider abdomen MRI without and with contrast in 2 years. 3. Cholelithiasis.
== END 2022-11-09 12:37 | disposition home or self-care (01) ==
PROVIDERS: PCP Internal Medicine; Visit Provider Internal Medicine
DX: K86.2 Cyst of pancreas (principal); R63.4 Abnormal weight loss; K80.20 Calculus of gallbladder without cholecystitis without obstruction
CPT/HCPCS: 74183; 76376; A9577

== ENCOUNTER 2022-11-16 09:33 | Outpatient (CLI) | payer MEDICARE, SELFPAY ==
--- NOTE | ~2022-11-16 | NM_ITS ---
EXAMINATION: NM hepatobiliary wo pharm DATE: 11/16/2022 12:58 INDICATION: Gallstones COMPARISON: None. TECHNIQUE: 5.5 mCi Tc-99m mebrofenin (Choletec) was administered intravenously. Scintigraphic images of the abdomen were obtained for one hour. At the 1 hour time point, the patient drank 8 oz Ensure, and imaging was continued for 60 minutes. Gallbladder ejection fraction was calculated by the technol ogist. FINDINGS: There is normal clearance of radiotracer from the blood pool. There is homogeneous tracer u ptake by the liver. Activity progresses to the bowel and gallbladder. The gallbladder ejection fract ion (GBEF) is 78%. Note that with this technique, normal GBEF >= 33%. IMPRESSION: 1. Normal hepatobiliary scan Reviewed, dictated and finalized at location A.
== END 2022-11-16 09:34 | disposition home or self-care (01) ==
LOC: ANHIMG 09:35
PROVIDERS: PCP Internal Medicine; Visit Provider Internal Medicine
DX: K80.20 Calculus of gallbladder without cholecystitis without obstruction (principal)
CPT/HCPCS: 78226; A9537

== ENCOUNTER 2023-02-04 15:20 | Outpatient (CLI) | payer MEDICARE, SELFPAY ==
--- NOTE | ~2023-02-04 | MM_ITS ---
EXAMINATION: MM screening [place] BI w gilda HISTORY: Screening mammogram TECHNIQUE: Craniocaudal and mediolateral oblique 3-D tomosynthesis images were obtained and synthetic 2-D images were generated. CAD analysis was submitted and interpreted. COMPARISON: 02/01/2022, 01/30/2021, 02/13/2020 bilateral screening mammogram examinations BREAST PARENCHYMAL COMPOSITION: There are scattered areas of fibroglandular density. FINDINGS: There is no evidence of suspicious mass, calcification, or architectural distortion to sugg est malignancy in either breast. There has been no suspicious interval change. IMPRESSION: 1. No mammographic evidence of malignancy. 2. Recommend routine screening mammography in one year. BI-RADS Category 1: Negative Reviewed, dictated and finalized at location A.
== END 2023-02-04 15:21 | disposition home or self-care (01) ==
LOC: ANHIMG 15:22
PROVIDERS: PCP Internal Medicine; Visit Provider Obstetrics & Gynecology
DX: Z12.31 Encounter for screening mammogram for malignant neoplasm of breast (principal)
CPT/HCPCS: 77063; 77067

== ENCOUNTER 2023-03-04 12:19 | Outpatient (CLI) | payer MEDICARE, SELFPAY ==
[2023-03-04 13:01] LABS: Basophils Percent Auto 0.7 % (0.2-1.2); Eosinophils Absolute Auto 0.2 K/mm3 (0-0.3); Eosinophils Percent Auto 4.2 % (0-4.4); Hematocrit 37.7 % (37.0-47.0); Hemoglobin 11.8 g/dL (12.0-15.0); Immature Granulocyte Absolute 0.01 K/mm3 (0.00-0.031); Immature Granulocyte Percent A 0.2 % (0-0.5); Lymphocytes Absolute Auto 1.27 K/mm3 (0.9-3.2); Lymphocytes Percent Auto 29.6 % (18.3-44.2); Mean Corpuscular HGB Conc 31.3 g/dl (32-36); Mean Corpuscular Hemoglobin 32.5 pg (26-34); Mean Corpuscular Volume 103.9 fl (80-100); Mean Platelet Volume 9.9 fl (7.4-10.4); Monocytes Absolute Auto 0.5 K/mm3 (0.1-0.6); Monocytes Percent Auto 11.4 % (2.6-8.5); Neutrophils Absolute Auto 2.3 K/mm3 (1.3-6.7); Neutrophils Percent Auto 53.9 % (45.5-73.1); Platelet Count Result 156 k/mm3 (150-375); Red Blood Count 3.63 M/mm3 (4.2-5.4); Red Cell Distribution Width 13.9 % (11.5-14.5); White Blood Count 4.3 K/mm3 (4.5-10.0)
[2023-03-04 13:13] LABS: Alanine Aminotransferase 35 U/L (6-35); Albumin Level 4.7 g/dL (3.5-5.1); Alkaline Phosphatase 65 U/L (38-126); Anion Gap 5 mmol/L (8-16); Aspartate Amino Transferase 58 U/L (14-36); Bilirubin,Total 0.5 mg/dL (0.2-1.3); Blood Urea Nitrogen 21 mg/dL (7-17); Calcium 9.7 mg/dL (8.4-10.2); Carbon Dioxide 29 mmol/L (22-30); Chloride 104 mmol/L (98-107); Cholesterol 158 mg/dL (0-200); Estimated Glomerular Filt Rate 48; Glucose 71 mg/dL (65-110); HDL Direct 84 mg/dL; Magnesium 1.9 mg/dL (1.6-2.3); Potassium 5.1 mmol/L (3.4-5.0); Sodium 138 mmol/L (137-145); Triglycerides 79 mg/dL (<150)
[2023-03-04 13:26] LABS: LDL Cholesterol Direct 46 mg/dL
[2023-03-04 13:44] LABS: Thyroid Stimulating Hormone 0.933 uIU/mL (0.465-4.680)
[2023-03-04 13:46] LABS: Hemoglobin A1C 4.9 % (<5.7)
[2023-03-04 13:53] LABS: Free T4 Free Thyroxine 1.17 ng/mL (0.78-2.19)
[2023-03-04 14:25] LABS: Folic Acid > 20.0 ng/mL (2.76->20); Vitamin B12 > 1000.0 pg/mL (239-931)
[2023-03-08 10:54] LABS: Vitamin B1 185 nmol/L (8-30)
[2023-03-10 12:44] LABS: Vitamin B6 10.8 ng/mL (2.1-21.7)
[2023-03-11 20:28] LABS: Vitamin B2 130.9 nmol/L (6.2-39.0)
== END 2023-03-04 12:20 | disposition home or self-care (01) ==
PROVIDERS: PCP Internal Medicine; Visit Provider Internal Medicine
DX: R00.2 Palpitations (principal); I10 Essential (primary) hypertension; E03.9 Hypothyroidism, unspecified; Z79.899 Other long term (current) drug therapy; Z13.1 Encounter for screening for diabetes mellitus; E78.2 Mixed hyperlipidemia; E53.8 Deficiency of other specified B group vitamins
CPT/HCPCS: 36415; 80053; 80061; 82607; 82746; 83036; 83735; 84207; 84252; 84425; 84439; 84443; 85025

== ENCOUNTER 2023-03-14 14:19 | Outpatient (CLI) | payer MEDICARE, SELFPAY ==
--- NOTE | ~2023-03-14 | MR_ITS ---
EXAMINATION: MR brain/brain stem wo/w con DATE: 03/14/2023 16:07 INDICATION: Unspecified mental disorder. TECHNIQUE: Magnetic resonance imaging (MRI) of the brain and brainstem was performed without and with 10 mL MultiHance intravenous contrast. COMPARISON: None. FINDINGS: There are scattered areas of nonspecific increased T2-weighted signal intensity in the cere bral white matter and esmer. There is a small old infarct in right temporal lobe. There is no intracra nial hemorrhage, acute infarction, or abnormal intracranial mass lesion. The ventricles are normal in size. The paranasal sinuses are clear. There is a left mastoid effusion. IMPRESSION: 1. 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 2. Moderate nonspecific cerebral white matter disease and pontine disease, which likely represents ch ronic small vessel ischemic disease. Reviewed, dictated and finalized at location A. IMPRESSION: 1. 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 2. Moderate nonspecific cerebral white matter disease and pontine disease, whic h likely represents chronic small vessel ischemic disease.
== END 2023-03-14 14:20 | disposition home or self-care (01) ==
PROVIDERS: PCP Internal Medicine; Visit Provider Internal Medicine
DX: F09 Unspecified mental disorder due to known physiological condition (principal); R90.82 White matter disease, unspecified; G93.89 Other specified disorders of brain; Z82.0 Family history of epilepsy and other diseases of the nervous system; Z86.73 Personal history of transient ischemic attack (TIA), and cerebral infarction without residual deficits
CPT/HCPCS: 70553; A9577

== ENCOUNTER 2023-04-17 11:50 | Outpatient (CLI) | payer MEDICARE, SELFPAY ==
[2023-04-23 01:58] LABS: Immunoglobulin A 330 mg/dL (70-320); TTG IGA AB 2.5 U/mL (<15.0)
== END 2023-04-17 11:51 | disposition home or self-care (01) ==
PROVIDERS: PCP Internal Medicine; Visit Provider Nurse Practitioner Family
DX: R19.7 Diarrhea, unspecified (principal)
CPT/HCPCS: 36415; 82784; 86003; 86364

== ENCOUNTER 2023-04-20 09:51 | Outpatient (CLI) | payer MEDICARE, SELFPAY ==
[2023-04-20 12:10] LABS: Toxigenic C. Diff NEGATIVE (NEGATIVE)
[2023-04-27 16:37] LABS: Calprotectin, Stool 43 mcg/g
[2023-04-29 16:38] LABS: Pancreatic Elastase, Stool >500 mcg/g
== END 2023-04-20 09:52 | disposition home or self-care (01) ==
PROVIDERS: PCP Internal Medicine; Visit Provider Nurse Practitioner Family
DX: R19.7 Diarrhea, unspecified (principal)
CPT/HCPCS: 82653; 83993; 87269; 87493

== ENCOUNTER 2023-04-24 10:28 | Outpatient (CLI) | payer MEDICARE, SELFPAY ==
[2023-04-24 11:39] LABS: CRP 0.6 mg/dL (<1.0)
[2023-04-24 11:54] LABS: Erythrocyte Sedimentation Rate 36 mm/hr (0-20)
[2023-04-27 15:52] LABS: Immunoglobulin A 339 mg/dL (70-320); TTG IGA AB 2.3 U/mL (<15.0)
== END 2023-04-24 10:29 | disposition home or self-care (01) ==
LOC: ANHLAB 10:32
PROVIDERS: PCP Internal Medicine; Visit Provider Nurse Practitioner Family
DX: R19.7 Diarrhea, unspecified (principal)
CPT/HCPCS: 36415; 82784; 85652; 86003; 86140; 86364

== ENCOUNTER 2023-07-12 00:52 | Day surgery (SDC) | payer MEDICARE, SELFPAY ==
[2023-07-08 13:56] VITALS: BMI 18.9
--- NOTE | 2023-07-10 10:35 | SUR.PREOP ---
Patient called regarding upcoming procedure. Message left on patient's voicemail regarding preop instructions, appointment times, and procedure prep.
[2023-07-12 11:20] VITALS: BP 149/114; PULSE 145; RESP 20; TEMP 36.6; O2SAT 97
--- NOTE | 2023-07-12 11:35 | SUR.PREOP ---
Addendum entered by Katelyn Herzog RN 07/12/23 11:42: 1130 Pt placed on material coordinator. Original Note: Pt has a history of Atrial fibrillation and states she did not take any home medication in the past 2 days. Heart rate 145-160, blood pressure 149/114 Dr. Holloway Anesthesiologist notified. 2mg Metoprolol given @ 1134 and 3mg Metoprolol given at 1139 by Lyndsay Lock nurse anesthestist.
--- NOTE | 2023-07-12 11:41 | WPDANESEPPF ---
Anes - Initial Pre Proc Eval Procedure: Operation Date: 07/12/23 12:30 Proposed Procedures p Colonoscopy - Castro Wallace MD Date/Time: 07/12/23 11:41 Surgeon: Castro Wallace MD Pre Op Diagnosis: Noninfective gastroenteritis and colitis unspecifi Patient Data Age: 77 Gender: F Height: 1.63 m Weight: 49 kg Allergies Allergy/AdvReac Type Severity Reaction Status Date / Time No Known Allergies Allergy Verified 07/12/23 11:17 Home Medications Medication Instructions Recorded Confirmed Type cyanocobalamin (vitamin B-12) 1,000 mcg PO DAILY 09/03/19 07/08/23 History 1,000 mcg tablet (Vitamin B-12) rivaroxaban 20 mg tablet (Xarelto) 20 mg PO DAILY 09/07/22 07/12/23 History sotalol 80 mg tablet 80 mg PO Q12HR 30 days #60 tabs 09/24/22 07/08/23 Rx thiamine HCl (vitamin B1) 100 mg See Rx Instructions .Route 12/11/22 07/08/23 Rx tablet (Vitamin B-1) .COMPLEX #90 tabs [id number]-[id number]-[id number] 1 cap PO TID #270 caps 02/27/23 07/08/23 Rx 36,000-114,000-180,000 unit capsule,delay rel (Creon) levothyroxine 75 mcg tablet See Rx Instructions .Route 04/15/23 07/08/23 Rx (Synthroid) .COMPLEX #90 tabs olmesartan 40 mg tablet See Rx Instructions .Route 04/15/23 07/08/23 Rx .COMPLEX #90 tabs cholestyramine (with sugar) 4 gram See Rx Instructions .Route 06/03/23 07/08/23 Rx powder for susp in a packet .COMPLEX #180 packets folic acid 1 mg tablet See Rx Instructions .Route 06/03/23 07/08/23 Rx .COMPLEX #90 tabs alprazolam 1 mg tablet 1 mg PO TID PRN anxiety #90 tabs 06/28/23 07/08/23 Rx atorvastatin 20 mg tablet 20 mg PO DAILY 07/08/23 07/08/23 History magnesium oxide 400 mg (241.3 mg 400 mg PO DAILY 07/08/23 07/08/23 History magnesium) tablet Patient hx anesthesia problems: none Family hx anesthesia problems: none Results Review: All pre-operative results and documents have been reviewed as part of the pre-operative evaluation. [facility] Past Medical History Medical History Abnormal weight loss Adult BMI 19-24 kg/sq m Anxiety Aortic stenosis Atrial fibrillation Benign essential hypertension Blepharitis Blood in stool Cellulitis Chronic anemia Chronic diarrhea CKD (chronic kidney disease) stage 1, GFR 90 ml/min or greater Daily consumption of alcohol Deafness in right ear Dehydration Depression Diarrhea Edema Elevated homocysteine Elevated sed rate Encounter for Medicare annual wellness exam Encounter for routine adult health examination with abnormal findings Encounter for routine adult health examination without abnormal findings Exposure to COVID-19 virus Family history of Alzheimer's disease Follow up Fractures Left open femur fracture and right ankle fracture. GERD (gastroesophageal reflux disease) Hearing loss History of tobacco abuse Hormone replacement therapy (HRT) Hx of ischemic right ica stroke Hypothyroidism (acquired) Influenza A Irritable bowel syndrome with diarrhea LLQ abdominal pain Microscopic hematuria Mixed hyperlipidemia On [facility] drug therapy Overactive bladder Pancreatic cyst Pancreatic insufficiency Rectal prolapse Surgically repaired. Shingles Stasis dermatitis Unintentional weight loss UTI (urinary tract infection) Vitamin B12 deficiency Weakness Surgical History Surgical History H/O cataract extraction History of chest tube placement History of endometrial ablation For dysfunctional uterine bleeding. History of orthopedic surgery ORIF left open femur fracture. S/P cataract surgery Status post total hysterectomy and bilateral salpingo-oophorectomy Family History Family History Mother Hypertension Father Family history of lung cancer Family history of malignant neoplasm of brain Social History Social History (Reviewed 06/18/23 @ 10:4
--- NOTE | 2023-07-12 11:43 | WPDHPUPDATE1 ---
History and Physical Update Update Date/Time: 07/12/23 11:43 History and Physical has been reviewed, including an updated exam of the patient. There are NO changes in the patient's condition. Risks, benefits, and alternatives have been discussed and questions answered. Patient agrees to proceed with procedure.
[2023-07-12] MEDS: LACTATED RINGERS 1,000 ML 150 ML IV CONT (11:45)
[2023-07-12 12:11] VITALS: BP 155/89; PULSE 70; RESP 20; O2SAT 100
[2023-07-12 12:21] VITALS: BP 169/92; PULSE 65; RESP 20; O2SAT 100
[2023-07-12 12:31] VITALS: BP 173/108; PULSE 67; RESP 20; O2SAT 100
== END 2023-07-12 12:40 | disposition home or self-care (01) ==
PROVIDERS: PCP Internal Medicine; Visit Provider Internal Medicine Gastroenterology
PROC: 0DJD8ZZ Inspection of Lower Intestinal Tract, Via Natural or Artificial Opening Endoscopic (ICD-10-PCS; CPT 45378; principal; 2023-07-12 12:30)
DX: K52.832 Lymphocytic colitis (principal); Z98.0 Intestinal bypass and anastomosis status; Z90.49 Acquired absence of other specified parts of digestive tract; K86.2 Cyst of pancreas; K80.20 Calculus of gallbladder without cholecystitis without obstruction; I48.0 Paroxysmal atrial fibrillation; I12.9 Hypertensive chronic kidney disease with stage 1 through stage 4 chronic kidney disease, or unspecified chronic kidney disease; N18.1 Chronic kidney disease, stage 1; F32.A Depression, unspecified; F41.9 Anxiety disorder, unspecified; K21.9 Gastro-esophageal reflux disease without esophagitis; E03.9 Hypothyroidism, unspecified; E78.2 Mixed hyperlipidemia; E53.8 Deficiency of other specified B group vitamins; Z87.891 Personal history of nicotine dependence; Z79.01 Long term (current) use of anticoagulants
CPT/HCPCS: 45380; 88305; J2704; J7120

== ENCOUNTER 2023-07-16 14:42 | Outpatient (CLI) | payer MEDICARE, SELFPAY ==
[2023-07-16 15:41] LABS: Basophils Percent Auto 0.6 % (0.2-1.2); Eosinophils Absolute Auto 0.2 K/mm3 (0-0.3); Eosinophils Percent Auto 4.6 % (0-4.4); Hematocrit 35.2 % (37.0-47.0); Hemoglobin 10.9 g/dL (12.0-15.0); Immature Granulocyte Absolute 0.01 K/mm3 (0.00-0.031); Immature Granulocyte Percent A 0.2 % (0-0.5); Lymphocytes Absolute Auto 1.53 K/mm3 (0.9-3.2); Lymphocytes Percent Auto 29.4 % (18.3-44.2); Mean Corpuscular Hemoglobin 32.4 pg (26-34); Mean Corpuscular Volume 104.8 fl (80-100); Mean Platelet Volume 9.9 fl (7.4-10.4); Monocytes Absolute Auto 0.6 K/mm3 (0.1-0.6); Monocytes Percent Auto 10.6 % (2.6-8.5); Neutrophils Absolute Auto 2.9 K/mm3 (1.3-6.7); Neutrophils Percent Auto 54.6 % (45.5-73.1); Platelet Count Result 183 k/mm3 (150-375); Red Blood Count 3.36 M/mm3 (4.2-5.4); Red Cell Distribution Width 13.2 % (11.5-14.5); White Blood Count 5.2 K/mm3 (4.5-10.0)
[2023-07-16 17:37] LABS: Alanine Aminotransferase 23 U/L (6-35); Albumin Level 4.3 g/dL (3.5-5.1); Alkaline Phosphatase 67 U/L (38-126); Anion Gap 9 mmol/L (8-16); Aspartate Amino Transferase 41 U/L (14-36); Bilirubin,Total 0.5 mg/dL (0.2-1.3); Blood Urea Nitrogen 19 mg/dL (7-17); Calcium 9.9 mg/dL (8.4-10.2); Carbon Dioxide 26 mmol/L (22-30); Chloride 106 mmol/L (98-107); Cholesterol 143 mg/dL (0-200); Estimated Glomerular Filt Rate 44; Glucose 95 mg/dL (65-110); HDL Direct 74 mg/dL; Sodium 141 mmol/L (137-145); Triglycerides 80 mg/dL (<150)
[2023-07-16 17:41] LABS: LDL Cholesterol Direct 54 mg/dL
[2023-07-16 18:40] LABS: Free T4 Free Thyroxine 1.79 ng/mL (0.78-2.19); Vitamin D 25 Hydroxy 44.8 ng/mL
[2023-07-16 18:50] LABS: Folic Acid > 20.0 ng/mL (2.76->20); Vitamin B12 > 1000.0 pg/mL (239-931)
[2023-07-20 09:26] LABS: Vitamin B6 17.6 ng/mL (2.1-21.7)
[2023-07-21 22:59] LABS: Vitamin B2 74.9 nmol/L (6.2-39.0)
[2023-07-25 13:32] LABS: Vitamin B1 172 nmol/L (8-30)
== END 2023-07-16 14:43 | disposition home or self-care (01) ==
PROVIDERS: PCP Internal Medicine; Visit Provider Internal Medicine
DX: E55.9 Vitamin D deficiency, unspecified (principal); R41.89 Other symptoms and signs involving cognitive functions and awareness; E78.2 Mixed hyperlipidemia; I10 Essential (primary) hypertension; E53.9 Vitamin B deficiency, unspecified; E53.8 Deficiency of other specified B group vitamins; E03.9 Hypothyroidism, unspecified
CPT/HCPCS: 36415; 80053; 80061; 82306; 82607; 82746; 84207; 84252; 84425; 84439; 84443; 85025

== ENCOUNTER 2023-07-17 07:53 | Outpatient (CLI) | payer MEDICARE, SELFPAY | END 2023-07-17 07:54 | disposition home or self-care (01) | PROVIDERS: PCP Internal Medicine; Visit Provider Internal Medicine | DX: E87.5 Hyperkalemia (principal) | CPT/HCPCS: 36415; 84132 ==

== ENCOUNTER 2024-01-15 13:09 | Outpatient (CLI) | payer MEDICARE, SELFPAY ==
[2024-01-15 14:15] LABS: Basophils Percent Auto 0.5 % (0.2-1.2); Eosinophils Absolute Auto 0.1 K/mm3 (0-0.3); Eosinophils Percent Auto 1.9 % (0-4.4); Hematocrit 37.5 % (37.0-47.0); Hemoglobin 11.5 g/dL (12.0-15.0); Immature Granulocyte Absolute 0.03 K/mm3 (0.00-0.031); Immature Granulocyte Percent A 0.5 % (0-0.5); Lymphocytes Percent Auto 17.2 % (18.3-44.2); Mean Corpuscular HGB Conc 30.7 g/dl (32-36); Mean Corpuscular Hemoglobin 32.3 pg (26-34); Mean Corpuscular Volume 105.3 fl (80-100); Mean Platelet Volume 9.4 fl (7.4-10.4); Monocytes Absolute Auto 0.6 K/mm3 (0.1-0.6); Monocytes Percent Auto 8.9 % (2.6-8.5); Neutrophils Absolute Auto 4.6 K/mm3 (1.3-6.7); Platelet Count Result 252 k/mm3 (150-375); Red Blood Count 3.56 M/mm3 (4.2-5.4); Red Cell Distribution Width 13.1 % (11.5-14.5); White Blood Count 6.4 K/mm3 (4.5-10.0)
[2024-01-15 14:17] LABS: Hemoglobin A1C 4.9 % (<5.7)
[2024-01-15 14:21] LABS: Alanine Aminotransferase 32 U/L (6-35); Albumin Level 4.3 g/dL (3.5-5.1); Alkaline Phosphatase 61 U/L (38-126); Anion Gap 9 mmol/L (4-12); Aspartate Amino Transferase 47 U/L (14-36); Bilirubin,Total 0.5 mg/dL (0.2-1.3); Blood Urea Nitrogen 24 mg/dL (7-17); Calcium 9.6 mg/dL (8.4-10.2); Carbon Dioxide 22 mmol/L (22-30); Chloride 109 mmol/L (98-107); Cholesterol 137 mg/dL (0-200); Estimated Glomerular Filt Rate 48; Glucose 102 mg/dL (65-110); HDL Direct 79 mg/dL; Potassium 4.4 mmol/L (3.4-5.0); Sodium 140 mmol/L (137-145); Triglycerides 71 mg/dL (<150)
[2024-01-15 14:32] LABS: LDL Cholesterol Direct 52 mg/dL
[2024-01-15 14:40] LABS: Vitamin D 25 Hydroxy 32.8 ng/mL
[2024-01-15 16:57] LABS: Hypochromasia 1+; Platelet Estimate Adequate (Adequate); Schistocytes None Seen
[2024-01-16 09:30] LABS: Folic Acid > 20.0 ng/mL (2.76->20); Vitamin B12 > 1000.0 pg/mL (239-931)
== END 2024-01-15 13:10 | disposition home or self-care (01) ==
LOC: ANHLAB 13:12
PROVIDERS: PCP Internal Medicine; Visit Provider Internal Medicine
DX: E53.8 Deficiency of other specified B group vitamins (principal); Z79.899 Other long term (current) drug therapy; Z13.1 Encounter for screening for diabetes mellitus; E55.9 Vitamin D deficiency, unspecified; E78.2 Mixed hyperlipidemia; E03.9 Hypothyroidism, unspecified; I10 Essential (primary) hypertension
CPT/HCPCS: 36415; 80053; 80061; 82306; 82607; 82746; 83036; 84439; 84443; 85025

== ENCOUNTER 2024-04-07 14:10 | Outpatient (CLI) | payer MEDICARE, SELFPAY ==
[2024-04-07 14:55] LABS: Basophils Percent Auto 0.3 % (0.2-1.2); Eosinophils Absolute Auto 0.1 K/mm3 (0-0.3); Eosinophils Percent Auto 1.6 % (0-4.4); Hematocrit 36.5 % (37.0-47.0); Hemoglobin 11.1 g/dL (12.0-15.0); Immature Granulocyte Absolute 0.01 K/mm3 (0.00-0.031); Immature Granulocyte Percent A 0.1 % (0-0.5); Lymphocytes Absolute Auto 0.94 K/mm3 (0.9-3.2); Lymphocytes Percent Auto 13.7 % (18.3-44.2); Mean Corpuscular HGB Conc 30.4 g/dl (32-36); Mean Platelet Volume 8.9 fl (7.4-10.4); Monocytes Absolute Auto 0.6 K/mm3 (0.1-0.6); Monocytes Percent Auto 8.9 % (2.6-8.5); Neutrophils Absolute Auto 5.2 K/mm3 (1.3-6.7); Neutrophils Percent Auto 75.4 % (45.5-73.1); Platelet Count Result 269 k/mm3 (150-375); Red Blood Count 3.58 M/mm3 (4.2-5.4); Red Cell Distribution Width 13.3 % (11.5-14.5); White Blood Count 6.9 K/mm3 (4.5-10.0)
[2024-04-07 15:08] LABS: Alanine Aminotransferase 26 U/L (6-35); Albumin Level 3.9 g/dL (3.5-5.1); Alkaline Phosphatase 68 U/L (38-126); Anion Gap 11 mmol/L (4-12); Aspartate Amino Transferase 36 U/L (14-36); Bilirubin,Total 0.2 mg/dL (0.2-1.3); Blood Urea Nitrogen 26 mg/dL (7-17); Carbon Dioxide 21 mmol/L (22-30); Chloride 105 mmol/L (98-107); Estimated Glomerular Filt Rate 48; Glucose 96 mg/dL (65-110); Potassium 4.9 mmol/L (3.4-5.0); Sodium 137 mmol/L (137-145)
== END 2024-04-07 14:11 | disposition home or self-care (01) ==
LOC: ANHLAB 14:10
PROVIDERS: PCP Internal Medicine; Visit Provider Internal Medicine
DX: R63.4 Abnormal weight loss (principal); Z68.1 Body mass index [BMI] 19.9 or less, adult; I95.1 Orthostatic hypotension; K58.0 Irritable bowel syndrome with diarrhea; Z79.899 Other long term (current) drug therapy
CPT/HCPCS: 36415; 80053; 85025

== ENCOUNTER 2024-06-15 09:47 | Outpatient (CLI) | payer MEDICARE, SELFPAY ==
[2024-06-15 10:18] LABS: Basophils Percent Auto 0.4 % (0.2-1.2); Eosinophils Absolute Auto 0.2 K/mm3 (0-0.3); Eosinophils Percent Auto 2.5 % (0-4.4); Hematocrit 35.8 % (37.0-47.0); Hemoglobin 11.1 g/dL (12.0-15.0); Immature Granulocyte Absolute 0.03 K/mm3 (0.00-0.031); Immature Granulocyte Percent A 0.4 % (0-0.5); Lymphocytes Absolute Auto 1.19 K/mm3 (0.9-3.2); Lymphocytes Percent Auto 15.9 % (18.3-44.2); Mean Corpuscular Hemoglobin 30.9 pg (26-34); Mean Corpuscular Volume 99.7 fl (80-100); Mean Platelet Volume 8.6 fl (7.4-10.4); Monocytes Absolute Auto 0.6 K/mm3 (0.1-0.6); Monocytes Percent Auto 7.6 % (2.6-8.5); Neutrophils Absolute Auto 5.5 K/mm3 (1.3-6.7); Neutrophils Percent Auto 73.2 % (45.5-73.1); Platelet Count Result 342 k/mm3 (150-375); Red Blood Count 3.59 M/mm3 (4.2-5.4); Red Cell Distribution Width 13.3 % (11.5-14.5); White Blood Count 7.5 K/mm3 (4.5-10.0)
[2024-06-15 11:16] LABS: Alanine Aminotransferase 21 U/L (6-35); Albumin Level 3.8 g/dL (3.5-5.1); Alkaline Phosphatase 81 U/L (38-126); Anion Gap 9 mmol/L (4-12); Aspartate Amino Transferase 28 U/L (14-36); Bilirubin,Total 0.2 mg/dL (0.2-1.3); Blood Urea Nitrogen 26 mg/dL (7-17); Calcium 9.5 mg/dL (8.4-10.2); Carbon Dioxide 25 mmol/L (22-30); Chloride 102 mmol/L (98-107); Cholesterol 130 mg/dL (0-200); Estimated Glomerular Filt Rate 48; Glucose 155 mg/dL (65-110); HDL Direct 51 mg/dL; Potassium 4.3 mmol/L (3.4-5.0); Sodium 136 mmol/L (137-145); Triglycerides 97 mg/dL (<150)
[2024-06-15 11:27] LABS: LDL Cholesterol Direct 47 mg/dL
[2024-06-15 12:17] LABS: Folic Acid > 20.0 ng/mL (2.76->20)
[2024-06-18 12:38] LABS: Vitamin B2 97.2 nmol/L (6.2-39.0)
[2024-06-19 07:14] LABS: Vitamin B1 85 nmol/L (8-30)
[2024-06-19 13:33] LABS: Vitamin B6 10.8 ng/mL (2.1-21.7)
== END 2024-06-15 09:48 | disposition home or self-care (01) ==
PROVIDERS: PCP Internal Medicine; Visit Provider Internal Medicine
DX: E53.1 Pyridoxine deficiency (principal); E53.8 Deficiency of other specified B group vitamins; E53.9 Vitamin B deficiency, unspecified; I10 Essential (primary) hypertension; Z13.220 Encounter for screening for lipoid disorders; Z79.899 Other long term (current) drug therapy
CPT/HCPCS: 36415; 80053; 80061; 82607; 82746; 84207; 84252; 84425; 85025

== ENCOUNTER 2024-10-01 09:55 | Outpatient (CLI) | payer MEDICARE, SELFPAY ==
--- NOTE | ~2024-10-01 | CT_ITS ---
CT Scan of the Chest without Contrast: Clinical Indication: Lung cancer screening, nicotine dependence Technique: Contiguous sections were acquired throughout the chest without intravenous contrast. Dose reduction technique was used on this scan by utilizing automated exposure control and iterative recon struction technique. The dose-length product (DLP) was 59.72 mGy-cm. Findings: There is no evidence of any significant mediastinal, hilar or axillary lymphadenopathy. There are ath erosclerotic calcifications of the aorta and coronary arteries. There is no evidence of pleural or pericardial effusion. There is peripheral chronic interstitial disease in the lungs, with subpleural reticulation and inter stitial thickening. There is patchy consolidation throughout the left lower lobe, suspicious for pneu monia. No definite, discrete pulmonary nodule identified. Images through the upper abdomen reveal no abnormalities. Impression: Lung RADS 2-S: Benign appearance. 12 month follow-up screening CT advised. Patchy left lower lobe consolidation suspicious for pneumonia. Consider short-term follow-up exam to assure resolution after interval therapy. Underlying mild chronic interstitial disease. Reviewed, dictated and finalized at [facility]. BUILDER HELPER Impression: Lung RADS 2-S: Benign appearance. 12 month follow-up screening CT advised. Patchy left lower lobe consolidation suspicious for pneumonia. Consider short-t erm follow-up exam to assure resolution after interval therapy. Underlying mild chronic interstitial disease.
--- OUTSIDE RECORDS SUMMARY | 2024-10-01 10:23 | XMS_ITS | Clinical Summary ---
Author Organization [facility] [address] Address [address] [place] [address] Care Team Providers Care Medical Assisting Program Director Name Role Phone Jon Wills MD Primary Care Provider [phone] Allergies No known active allergies Medications magnesium oxide (MAG-OX) 400 mg (241.3 mg elemental magnesium) tablet Take 1 tablet (400 mg total) by mouth daily 0 Active thiamine (VITAMIN B-1) 100 mg tablet Take 1 tablet (100 mg total) by mouth daily before breakfast 0 Active folic acid (FOLVITE) 1 mg tablet Take 1 tablet (1 mg total) by mouth daily 0 Active cyanocobalamin (Vitamin B-12) 1,000 mcg tabletIndications :Prevention of Vitamin B12 Deficiency Take 1 tablet (1,000 mcg total) by mouth daily Active atorvastatin (LIPITOR) 20 mg tablet 0 Active Synthroid 75 mcg tablet 0 Active olmesartan (BENICAR) 40 mg tablet 1 Active cholestyramine (QUESTRAN) 4 gram packet PLEASE SEE ATTACHED FOR DETAILED DIRECTIONS 3 Active amLODIPine (NORVASC) 5 mg tablet Take 1 tablet (5 mg total) by mouth daily Active budesonide EC (ENTOCORT EC) 3 mg 24 hr capsule Take 1 capsule (3 mg total) by mouth every morning 3 Active rivaroxaban (XARELTO) 20 mg tabletIndications :atrial fibrillation Take 1 tablet (20 mg total) by mouth daily 90 tablet 3 4 Active sotaloL (BETAPACE) 80 mg tabletIndications :Paroxysmal atrial fibrillation (CMS/HCC) (HCC) TAKE 1 TABLET BY MOUTH 2 TIMES A DAY. 180 tablet 1 4 Active Active Problems Problem Noted Date Diagnosed Date Mild cognitive impairment 07/02/2024 Memory loss or impairment 12/04/2023 Old cerebrovascular accident (CVA) without late effect 09/21/2019 Chronic anticoagulation 09/21/2019 Paroxysmal atrial fibrillation (CMS/HCC) 020 Essential hypertension 09/21/2019 Encounters Date Type Department Care Team Description 08/05/2024 1:33 PM BREAD STACKER - 08/05/2024 11:59 PM BREAD STACKER Hospital Encounter [facility] [address] [place] [id number] Discharge Disposition: Discharge to home or self care 08/05/2024 1:33 PM BREAD STACKER - 08/05/2024 11:59 PM BREAD STACKER Hospital Encounter [facility]) [address] [place] [place] [address] Mild cognitive impairment Discharge Disposition: Discharge to home or self care 07/02/2024 9:00 AM BREAD STACKER Office Visit [facility] [address] [facility] 6th [address] [place] [address] Kathleen Brar NP Mild cognitive impairment (Primary Dx) from Last 3 Months Surgical History Surgery Date Site/Laterality Comments FEMUR FRACTURE SURGERY HYSTERECTOMY RECTAL PROLAPSE REPAIR CATARACT EXTRACTION FRACTURE SURGERY 3014 Medical History Medical History Date Comments Atrial fibrillation (CMS/HCC) (HCC) Hypertension Hypothyroidism Stroke (HCC) Cataracts, bilateral History of pneumonia Anxiety and depression History of anemia Family History Medical History Relation Name Comments Heart attack Brother 3 Ramos Morgan Kidney disease Brother 4 Ed Morgan Memory loss Brother 5 Crystal Mora Brain cancer Father Lung cancer Father Hearing loss Mother Chantel Mora Hypertension Mother Chantel Mora asystolie Mother Chantel Mora Heart disease Sister Relation Name Status Comments Brother 1 Alive Brother 2 Alive Brother 3 Ramos Morgan Brother 4 Ed Morgan Brother 5 Crystal Mora Father (Age 59) Mother Chantel Mora (Age 86) Sister Alive Social History Tobacco Use Types Packs/Day Years Used Date Smoking Tobacco: Former Cigarettes Q uit: 09/21/1990 Smokeless Tobacco: Never Tobacco Cessation:Counseling Given: Not Answered Alcohol Use Standard Drinks/Week Comments Yes 7 (1 standard drink = 0.6 oz pur e alcohol) Comments Unknown Sex and Gender Information Value Date Recorded Sex Assigned at Not on file Legal Sex Female 2:04 AM BREAD STACKER Gender Identity Female 07/12/2021 11:19 AM BREAD STACKER Sexual Orientation Straight 07/12/2021 11 :19 AM BREAD STACKER Obstetrics History Last Filed Vital Signs Vital Sign Reading Time Taken Comments Blood Pressure 112/64 07/02/2024 8:28 AM BREAD STACKER Pulse 62 07/02/2024 8:28 AM BREAD STACKER Temperature 37 C (98.6 F) 07/02/2024 8:28 AM BREAD STACKER Respiratory Rate 15 06/28/2020 3:02 PM BREAD STACKER Oxygen Saturation 100% 07/02/2024 8:28 AM BREAD STACKER Inhaled Oxygen Concentration - - Weight 46.5 kg (102 lb 8 oz) 07/02/2024 8:28 AM BREAD STACKER Height 162.6 cm (5' 4 ) 07/02/2024 8:28 AM BREAD STACKER Body Mass Index 17.59 07/02/2024 8:28 AM BREAD STACKER Plan of Treatment Health Maintenance Due Date Last Done Comments Depression Screening 1945 Hepatitis C Screening 1945 Osteoporosis Screening-Bone Density Scan 1945 DTaP/Tdap/Td Vaccine (1 - Tdap) 1956 Hepatitis B Screening 1963 Well Visit 65+ 2010 Zoster Vaccine (2 of 3) 10/29/2016 09/03/2016, 09/05 Fall Risk Assessment 06/28/2021 06/28/2020 Influenza Vaccine (#1) 2024 8, 05/19/2017, 09/03/2016, Additional history exists Pneumococcal vaccine 65+ Completed 018, 11/05/2016, 05/05/2012 Medical Devices Implanted Type Area Media Services Coordinator Device Identifier Shelf Expiration Date Model / Serial / Lot Bladder Sling Pelvis Procedures Procedure Name Priority Date/Time Associated Diagnosis Comments PET/CT AMYLOID BRAIN Schedule Routine, Read Routine (OP Routine) 08/05/2024 3:15 PM BREAD STACKER Mild cognitive impairment from Last 3 Months Results * PET/CT Amyloid Brain (08/05/2024 3:15 PM BREAD STACKER) Anatomical Region Laterality Modality Positron Emissio n Tomography (PET) 08/05/2024 5:03 PM BREAD STACKER Impressions 08/05/2024 5:28 PM BREAD STACKER Negative amyloid-PET study, indicating no to sparse beta-amyloid neuritic plaques. General comments on amyloid-PET interpretation: A negative amyloid-PET study indicates sparse to no neuritic plaques and is inconsistent with Alzheimer disease at the time of the study. A negative study reduces the likelihood that the patient's cognitive impairment is due to Alzheimer disease. A positive amyloid-PET study indicates moderate to frequent neuritic plaques which is the amount present in patients with Alzheimer disease. However, a positive amyloid-PET study does not establish the diagnosis of Alzheimer disease. Moderate to frequent neuritic plaques can also be present in patients with other neurological conditions as well as in older people with normal cognition. Dictated by: Hailey Hanna MD The radiology attending physician has personally reviewed this study, and had reviewed and/or edited this written report and agrees with it. Electronically signed by: DO Sam Perez 08/05/2024 5:28 PM BREAD STACKER EXAMINATION: BRAIN AMYLOID-PET/CT IMAGING DATE OF STUDY: 08/05/2024 SCANNER: [facility] Mix[employer] (NV1). RADIOPHARMACEUTICAL: 10.3 mCi F-18 florbetapir i.v. HISTORY: 78-year-old woman undergoing evaluation for cognitive impairment. She has had cognitive changes since 8 years. Clinically, she has very mild or mild dementia. TECHNIQUE: At 35 minutes after injection of tracer, non-contrast CT images of the head were obtained for attenuation correction and for fusion with emission PET images to allow for anatomical localization of PET findings. Standard emission PET imaging of the brain was then performed. The study was interpreted on the workstation. COMPARISON: MRI dated 12/16/2023 FINDINGS: There is normal cortical-white matter contrast in the cerebellum. There is normal cortical-white matter contrast throughout the cerebrum. There are no foci of increased cortical activity. Incidental CT findings: None. Procedure Note Miguel Townsend DO - 08/05/2024 EXAMINATION: BRAIN AMYLOID-PET/CT IMAGING DATE OF STUDY: 08/05/2024 SCANNER: [facility] [employer] (NV1). RADIOPHARMACEUTICAL: 10.3 mCi F-18 florbetapir i.v. HISTORY: 78-year-old woman undergoing evaluation for cognitive impairment. She has had cognitive changes since 8 years. Clinically, she has very mild or mild dementia. TECHNIQUE: At 35 minutes after injection of tracer, non-contrast CT images of the head were obtained for attenuation correction and for fusion with emission PET images to allow for anatomical localization of PET findings. Standard emission PET imaging of the brain was then performed. The study was interpreted on the workstation. COMPARISON: MRI dated 12/16/2023 FINDINGS: There is normal cortical-white matter contrast in the cerebellum. There is normal cortical-white matter contrast throughout the cerebrum. There are no foci of increased cortical activity. Incidental CT findings: None. IMPRESSION: Negative amyloid-PET study, indicating no to sparse beta-amyloid neuritic plaques. General comments on amyloid-PET interpretation: A negative amyloid-PET study indicates sparse to no neuritic plaques and is inconsistent with Alzheimer disease at the time of the study. A negative study reduces the likelihood that the patient's cognitive impairment is due to Alzheimer disease. A positive amyloid-PET study indicates moderate to frequent neuritic plaques which is the amount present in patients with Alzheimer disease. However, a positive amyloid-PET study does not establish the diagnosis of Alzheimer disease. Moderate to frequent neuritic plaques can also be present in patients with other neurological conditions as well as in older people with normal cognition. Dictated by: Hailey Hanna MD The radiology attending physician has personally reviewed this study, and had reviewed and/or edited this written report and agrees with it. Electronically signed by: Miguel Townsend DO Kathleen Brar NP IMG PET PROCEDURES Fin al Result from Last 3 Months Insurance MEDICARE SOLUTIONS MEDICARE SOLUTIONS MEDICARE [employer] Care Teams Medical Assisting Program Director Relationship Specialty Start Date End Date Jon Wills MD [address] [facility] [address] [place] [address] PCP - General 11/3/11
--- OUTSIDE RECORDS SUMMARY | 2024-10-01 10:24 | XMS_ITS | Clinical Summary ---
Author Organization [facility] Care Team Providers Care Octave Board Racker Name Role Phone Unavailable Primary Care Provider Unavailabl e Social History Tobacco Use Types Packs/Day Years Used Date Smoking Tobacco: Never Assessed Comments Unknown Sex and Gender Information Value Date Recorded Sex Assigned at Not on file Legal Sex Female 8:16 AM POLITICAL REPORTER Gender Identity Not on file Sexual Orientation Not on file Plan of Treatment Health Maintenance Due Date Last Done Comments DEXA Bone Density 1945 Hepatitis C Virus (HCV) Screening 1945 Respiratory Syncytial Virus (RSV) Immunization (Adult) (1 - 1-dose 75+ series) 2020 Influenza Immunization (#1) 04/26/202404/26, 04/20/2020, 05/08/2018, Additional history exists SARS-COV-2 Immunization ( season) 2024 05/20/2021, 11/08/2020, 10/17/2020 Pneumococcal Immunization (50+ years) Completed 05/08/2018, 11/05/2016 DTaP/Tdap/Td Immunization Discontinued 02/15/2021 TdaP Immunization Completed 02/15/2021 Zoster Immunization Completed 04/01/2021, Hepatitis B Immunization Aged Out No longer eligible based on patient's age to complete this topic Meningococcal Immunization (ACWY) Aged Out No longer eligible based on patient's age to complete this topic Rotavirus Immunization Aged Out No lo nger eligible based on patient's age to complete this topic
--- OUTSIDE RECORDS SUMMARY | 2024-10-01 10:24 | XMS_ITS | Encounter Summary ---
Author Organization [facility] Healthcare Address [address] [place] [address] Care Team Providers Care Certified Marine Mechanic Name Role Phone Jon Wills MD Primary Care Provider [phone] Encounter Details Date Type Department Care Team (Late st Contact Info) Description 12/31/2023 Documentation [facility] OP Occup Therapy [facility] [address] [address] Angélica Arango, ALEX Social History Tobacco Use Types Packs/Day Years Used Date Smoking Tobacco: Former Cigarettes Q uit: 09/21/1990 Smokeless Tobacco: Never Alcohol Use Standard Drinks/Week Comments Yes 7 (1 standard drink = 0.6 oz pur e alcohol) Comments Unknown Sex and Gender Information Value Date Recorded Sex Assigned at Not on file Legal Sex Female 2:04 AM SIGNAL MECHANIC Gender Identity Female 07/12/2021 11:19 AM SIGNAL MECHANIC Sexual Orientation Straight 07/12/2021 11 :19 AM SIGNAL MECHANIC documented as of this encounter Plan of Treatment Not on file documented as of this encounter Visit Diagnoses Not on filedocumented in this encounter Care Teams Certified Marine Mechanic Relationship Specialty Start Date End Date Jon Wills MD [address] [place] [address] PCP - General 06/28/11 documented as of this encounter
--- OUTSIDE RECORDS SUMMARY | 2024-10-01 10:24 | XMS_ITS | Referral Summary ---
Author Organization [facility] [address] Address [address] [place] [address] Care Team Providers Care Cocktail Server Name Role Phone Jon Wills MD Primary Care Provider [phone] Encounters Date Type Department Care Team Description 08/05/2024 1:33 PM ADJUSTER ELECTRICAL CONTACTS - 08/05/2024 11:59 PM ADJUSTER ELECTRICAL CONTACTS Hospital Encounter [facility] [address] [place] [address] Discharge Disposition: Discharge to home or self care 08/05/2024 1:33 PM ADJUSTER ELECTRICAL CONTACTS - 08/05/2024 11:59 PM ADJUSTER ELECTRICAL CONTACTS Hospital Encounter [facility] [address] [place] [address] Mild cognitive impairment Discharge Disposition: Discharge to home or self care 07/02/2024 9:00 AM ADJUSTER ELECTRICAL CONTACTS Office Visit [facility] [address] [place] [address] 6th [address] [place] [address] Kathleen Brar NP Mild cognitive impairment (Primary Dx) from Last 3 Months Allergies No known active allergies Medications magnesium [...] atrial fibrillation (CMS/HCC) 020 Essential hypertension 09/21/2019 Social History Tobacco Use Types Packs/Day Years Used Date Smoking Tobacco: Former Cigarettes Q uit: 09/21/1990 Smokeless Tobacco: Never Tobacco Cessation:Counseling Given: Not Answered Alcohol Use Standard Drinks/Week Comments Yes 7 (1 standard drink = 0.6 oz pur e alcohol) Comments Unknown Sex and Gender Information Value Date Recorded Sex Assigned at Not on file Legal Sex Female 2:04 AM ADJUSTER ELECTRICAL CONTACTS Gender Identity Female 07/12/2021 11:19 AM ADJUSTER ELECTRICAL CONTACTS Sexual Orientation Straight 07/12/2021 11 :19 AM ADJUSTER ELECTRICAL CONTACTS Last Filed Vital Signs Vital Sign Reading Time Taken Comments Blood Pressure 112/64 07/02/2024 8:28 AM ADJUSTER ELECTRICAL CONTACTS Pulse 62 07/02/2024 8:28 AM ADJUSTER ELECTRICAL CONTACTS Temperature 37 C (98.6 F) 07/02/2024 8:28 AM ADJUSTER ELECTRICAL CONTACTS Respiratory Rate 15 06/28/2020 3:02 PM ADJUSTER ELECTRICAL CONTACTS Oxygen Saturation 100% 07/02/2024 8:28 AM ADJUSTER ELECTRICAL CONTACTS Inhaled Oxygen Concentration - - Weight 46.5 kg (102 lb 8 oz) 07/02/2024 8:28 AM ADJUSTER ELECTRICAL CONTACTS Height 162.6 cm (5' 4 ) 07/02/2024 8:28 AM ADJUSTER ELECTRICAL CONTACTS Body Mass Index 17.59 07/02/2024 8:28 AM ADJUSTER ELECTRICAL CONTACTS Plan of Treatment Not on file Medical Devices Implanted Type Area Handbag Parts Cutter Device Identifier Shelf Expiration Date Model / Serial / Lot Bladder Sling Pelvis Procedures Procedure Name Priority Date/Time Associated Diagnosis Comments PET/CT AMYLOID BRAIN Schedule Routine, Read Routine (OP Routine) 08/05/2024 3:15 PM ADJUSTER ELECTRICAL CONTACTS Mild cognitive impairment from Last 3 Months Results * PET/CT Amyloid Brain (08/05/2024 3:15 PM ADJUSTER ELECTRICAL CONTACTS) Anatomical Region Laterality Modality Positron Emissio n Tomography (PET) 08/05/2024 5:03 PM ADJUSTER ELECTRICAL CONTACTS Impressions 08/05/2024 5:28 PM ADJUSTER ELECTRICAL CONTACTS Negative amyloid-PET study, indicating no to sparse [...] by: DO Sam Perez 08/05/2024 5:28 PM ADJUSTER ELECTRICAL CONTACTS EXAMINATION: BRAIN AMYLOID-PET/CT IMAGING DATE OF STUDY: 08/05/2024 SCANNER: [facility] PET Vision (NV1). RADIOPHARMACEUTICAL: 10.3 mCi F-18 florbetapir i.v. [...] AMYLOID-PET/CT IMAGING DATE OF STUDY: 08/05/2024 SCANNER: [employer] (NV1). RADIOPHARMACEUTICAL: 10.3 mCi F-18 florbetapir i.v. [...] it. Electronically signed by: Miguel Townsend DO Kathleengarcia Michael Maykel TOWER ERECTOR IMG PET PROCEDURES Fin al Result from Last 3 Months Insurance MEDICARE SOLUTIONS MEDICARE SOLUTIONS MEDICARE [employer]UT[employer] Care Teams Cocktail Server Relationship Specialty Start Date End Date Jon Wills MD [address] [place], [place] [phone] PCP - General 06/28/11
== END 2024-10-01 09:56 | disposition home or self-care (01) ==
LOC: ANHIMG 09:58
PROVIDERS: PCP Internal Medicine; Visit Provider Internal Medicine
DX: Z12.2 Encounter for screening for malignant neoplasm of respiratory organs (principal); Z87.891 Personal history of nicotine dependence; R91.8 Other nonspecific abnormal finding of lung field
CPT/HCPCS: 71271

== ENCOUNTER 2024-10-15 08:56 | Emergency (ER) | payer MEDICARE, SELFPAY ==
[2024-10-15 09:05] VITALS: BP 131/56; PULSE 73; RESP 16; TEMP 36.3; O2SAT 97
--- NOTE | 2024-10-15 09:06 | ED.LOWEXIN ---
HPI - Extremity Injury (Lower) General Chief Complaint: Extremity Injury, Lower Stated Complaint: Left Ankle Pain Time Seen by Provider: 10/15/24 09:06 Source: patient Mode of arrival: ambulatory Limitations: no limitations History of Present Illness HPI Narrative: [age] year female presents with complaint of pain, swelling and redness to left lower extremity. Patient states that she fell Saturday in her kitchen on hardwood tile floor. Patient states that she slipped. Had multiple bruising is and skin tear to left lower extremity. Other than that she states she did not have any pain and was not concerned for fracture. Cleaned her wounds and went about her day. Started having swelling and redness 2 days ago. Worse today when waking up. Afebrile. Reports pain only to anterior aspect of left lower extremity where patient has bruising and skin tears. Ambulatory with steady gait. All systems reviewed and negative except as noted above. Related Data Home Medications ?Medication ?Instructions ?Recorded ?Confirmed ?Last Taken ?Type rivaroxaban 20 mg tablet (Xarelto) 20 mg PO DAILY 09/07/22 09/24/24 07/09/23 History magnesium oxide 400 mg (241.3 mg 400 mg PO DAILY 07/08/23 09/24/24 Unknown History magnesium) tablet cholecalciferol (vitamin D3) 50 50 mcg PO DAILY 01/16/24 09/24/24 Unknown History mcg (2,000 unit) capsule Allergies Allergy/AdvReac Type Severity Reaction Status Date / Time amoxicillin (From Augmentin) Allergy Intermediate Rash Verified 10/15/24 09:21 clavulanic acid (From Allergy Intermediate Rash Verified 10/15/24 09:21 Augmentin) Penicillins Allergy Intermediate Rash Verified 10/15/24 09:21 Review of Systems Review of Systems: CONSTITUTIONAL: Denies fever, chills, or sweats. EYES: Denies visual changes, redness, or discharge. ENT: Denies rhinorrhea, congestion, sore throat, or otalgia. CARDIOVASCULAR: Denies chest pain, palpitations, or edema. RESPIRATORY: Denies cough or dyspnea. GASTROINTESTINAL: Denies abdominal pain, nausea, vomiting, or diarrhea. GENITOURINARY: Denies dysuria or hematuria. SKIN: Denies rash or itching. Reports swelling, pain and redness to left lower extremity. MUSCULOSKELETAL: Denies back pain, joint pain, or myalgia. NEUROLOGIC: Denies headache, numbness, or weakness. PSYCHIATRIC: Denies anxiety or depression. All other systems reviewed are negative, except as documented in HPI. [facility] Past Medical History Medical History (Updated 10/15/24 @ 09:19 by Ilsa Mccann NP) Rash as adverse effect of penicillin Pneumonia Left leg swelling Elevated glucose Orthostatic hypotension Microscopic colitis Adult BMI <19 kg/sq m Peripheral edema Discoloration of skin of lower leg Lymphocytic colitis Cognitive changes Family history of Alzheimer's disease Abnormal weight loss Pancreatic cyst Unintentional weight loss Hx of ischemic right ica stroke Atrial fibrillation Weakness Chronic diarrhea Dehydration UTI (urinary tract infection) Influenza A Deafness in right ear Aortic stenosis Encounter for Medicare annual wellness exam Diarrhea Pancreatic insufficiency Elevated sed rate Cellulitis Elevated homocysteine CKD (chronic kidney disease) stage 1, GFR 90 ml/min or greater Mixed hyperlipidemia Stasis dermatitis Edema Shingles Blepharitis Exposure to COVID-19 virus History of tobacco abuse Blood in stool LLQ abdominal pain GERD (gastroesophageal reflux disease) Hormone replacement therapy (HRT) Encounter for routine adult health examination without abnormal findings Vitamin B12 deficiency Microscopic hematuria Adult BMI 19-24 kg/sq m Encounter for routine adult health examination with abnormal findings On snf drug therapy Hypothyroidism (acquired) Benign essential hypertension Hearing loss Follow up Daily consumption of alcohol Overactive bladder Irritable bowel syndrome with diarrhea Chronic anemia Anxiety Depression Fractures Left open femur fracture and right ankle fracture. Rectal prolapse Surgically repaired. Surgical History Surgical History H/O cataract extraction S/P cataract surgery Status post total hysterectomy and bilateral salpingo-oophorectomy History of endometrial ablation For dysfunctional uterine bleeding. History of orthopedic surgery ORIF left open femur fracture. History of chest tube placement Family History Family History Mother Hypertension Father Family history of lung cancer Family history of malignant neoplasm of brain Social History Social History Social History: The patient lives in [place] with her dog. She designates her daughter, Margo Koch, as her surrogate decision maker and she wishes to be a full code. She would not, however, want to be on long-term life support. She smoked up to 2 packs of cigarettes per day and quit 1990. 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 [employer] transit Code status full code Smoking packs per day: 2 Smoking cigarettes per day: 40.0 Years smoked: 33 Smoking pack-years: 66.00 Smoking status: Former smoker Tobacco type: cigarettes Alcohol intake: current Alcohol use details: HAD BEEN DRINKING MORE A FEW YEARS AGO Substance use: never Substance use type: does not use Lack of Transportation: No Lack of Food: Never True Current Housing: I Have Housing Concerned About Future Housing: No Difficulty Paying Gas/Electric Bills: No Difficulty Paying for Meds: No Currently Unemployed: No Education: High School Diploma/GED Difficulty w/ Childcare or Family Care: No Living arrangements: alone Gender identity (if verbalized by the patient): Female Spiritual care concerns: No Comments At time of signature, agree with nursing past medical, surgical, social and family history. There is no relevant family history pertinent to the presenting complaint. Exam Narrative: GENERAL: This is a well-nourished, well-developed patient, in no apparent distress. HEAD: normocephalic, atraumatic. EYES: PERRL. Sclera clear/white. Vision is grossly intact. EARS: External ears normal NOSE: External nose normal NECK: Neck supple, non-tender without lymphadenopathy, masses or thyromegaly. CARDIOVASCULAR: Regular rate and rhythm without murmurs, gallops, or rubs. RESPIRATORY: Clear to auscultation. Breath sounds equal bilaterally. No wheezes, rales, or rhonchi. SKIN: warm, Dry, with no suspicious lesions or rash, good texture and turgor. bruising and erythemat to anterior aspect LLE with healing skin tear approx. 1cm diameter. No driainage or fluctuance concerning of abscess. warmth to touch. swelling extends into L foot. CMS intact. NEURO: awake, alert, and oriented to person, place and time. There were no obvious focal neurologic abnormalities. EXTREMITIES: No joint tenderness, effusion, or edema noted. Course Course Level of Care: Express Care Visit Vital Signs Vital signs: Vital Signs Temperature 36.3 C L 10/15/24 09:05 Pulse Rate 73 10/15/24 09:05 Respiratory Rate 16 10/15/24 09:05 Blood Pressure 131/56 L 10/15/24 09:05 Pulse Oximetry 97 10/15/24 09:05 Temperature 36.3 C L 10/15/24 09:05 Pulse Rate 73 10/15/24 09:05 Respiratory Rate 16 10/15/24 09:05 Blood Pressure 131/56 L 10/15/24 09:05 Pulse Oximetry 97 10/15/24 09:05 reviewed MDM - Extremity Injury (Lower) MDM Narrative Medical decision making narrative: Patient well-appearing, nontoxic. CMS intact. Will treat cellulitis to left lower extremity with cephalexin. Has appointment with her doctor on Saturday, can have wounds and infection evaluated at that time. Please be advised this is a medical document. It is intended for [id number] communication. It is written in medical language and may contain unfamiliar abbreviations or verbiage. Medical documents are intended to carry relevant information, facts as evident, and the clinical opinion of the practitioner at the time of the encounter. This report may have been done utilizing a voice recognition system. Attempts have been made to correct errors. However, there may be uncorrected grammatical, spelling, and recognition errors present. The file time of this note does not necessarily represent the time of service. Discharge Plan Discharge Clinical Impression: Cellulitis of left anterior lower leg Patient Disposition: Home, Self-Care Condition: Stable Instructions: Antibiotic Form, Cellulitis (ED) Additional Instructions: Take antibiotic as prescribed until gone. Take Tylenol every 6-8 hours as needed for pain. Elevate when at rest. Follow-up with your primary care physician in 1 week to re-evaluate infection. Patient Language: Nigerian Prescriptions: New cephalexin 500 mg capsule 500 mg PO QID 7 Days Qty: 28 0RF No Action Xarelto 20 mg tablet 20 mg PO DAILY Rx Instructions: must administer with evening meal sotalol 80 mg Tablet 80 mg PO Q12HR 30 Days Qty: 60 0RF magnesium oxide 400 mg (241.3 mg magnesium) tablet 400 mg PO DAILY cholecalciferol (vitamin D3) 50 mcg (2,000 unit) capsule 50 mcg PO DAILY cholestyramine (with sugar) 4 gram powder in packet See Rx Instructions .ROUTE .COMPLEX Qty: 180 1RF Dose Instruction: TAKE 1 PACKET (4 GRAMS) ORALLY TWICE A DAY. ADMINISTER WITH A MEAL AVOID OTHER MEDS WITHIN 1HR BEFORE OR 4-6HR AFTER DOSE. Rx Instructions: TAKE 1 PACKET (4 GRAMS) ORALLY TWICE A DAY. ADMINISTER WITH A MEAL AVOID OTHER MEDS WITHIN 1HR BEFORE OR 4-6HR AFTER DOSE. amitriptyline 25 mg tablet 25 mg PO QHS Qty: 30 11RF levothyroxine [Synthroid] 75 mcg tablet See Rx Instructions .ROUTE .COMPLEX Qty: 90 1RF Dose Instruction: TAKE 1 TABLET DAILY Rx Instructions: TAKE 1 TABLET DAILY thiamine HCl (vitamin B1) [Vitamin B-1] 100 mg tablet See Rx Instructions .ROUTE .COMPLEX Qty: 90 1RF Dose Instruction: TAKE 1 TABLET EVERY MORNING Rx Instructions: TAKE 1 TABLET EVERY MORNING atorvastatin 20 mg tablet See Rx Instructions .ROUTE .COMPLEX Qty: 90 1RF Dose Instruction: TAKE 1 TABLET DAILY Rx Instructions: TAKE 1 TABLET DAILY olmesartan 40 mg tablet See Rx Instructions .ROUTE .COMPLEX Qty: 90 1RF Dose Instruction: TAKE 1 TABLET DAILY Rx Instructions: TAKE 1 TABLET DAILY folic acid 1 mg tablet See Rx Instructions .ROUTE .COMPLEX Qty: 90 1RF Dose Instruction: TAKE 1 TABLET DAILY Rx Instructions: TAKE 1 TABLET DAILY Follow-up/Referrals: Jon Wills MD [Primary Care Provider] - Time of Disposition: 09:20
== END 2024-10-15 09:25 | disposition home or self-care (01) ==
PROVIDERS: Emergency Provider Nurse Practitioner Family; PCP Internal Medicine
DX: L03.116 Cellulitis of left lower limb (principal); Z87.891 Personal history of nicotine dependence; I48.91 Unspecified atrial fibrillation; I12.9 Hypertensive chronic kidney disease with stage 1 through stage 4 chronic kidney disease, or unspecified chronic kidney disease; N18.1 Chronic kidney disease, stage 1; I35.0 Nonrheumatic aortic (valve) stenosis; E78.2 Mixed hyperlipidemia; K21.9 Gastro-esophageal reflux disease without esophagitis; E03.9 Hypothyroidism, unspecified; Z79.01 Long term (current) use of anticoagulants
CPT/HCPCS: 99213; G0463

== ENCOUNTER 2024-10-29 11:04 | Outpatient (NON) | payer MEDICARE, SELFPAY ==
[2024-10-29 11:52] LABS: Add Urine Microscopic? YES; Appearance Urine Cloudy (Clear); Bacteria Urine 3+ /hpf; Bilirubin Urine Negative (Negative); Blood Urine Negative (Negative); Color Urine Yellow (Yellow); Glucose Urine UA Negative (Negative); Ketones Urine Negative (Negative); Leukocyte Esterase Ur 2+ LEU/UL (Negative); Need Manual Microscopic Reviewed; Nitrate Urine Negative (Negative); Protein Urine Negative (Negative); Specific Grav Ur 1.013 (1.001-1.035); Squamous Epithelial Cell Urine Occasional /hpf (Few); Urobilinogen Urine 0.2 mg/dL (<2.0); WBC Urine 0-5 /hpf (0-3); pH Urine 6.5 (5.0-9.0)
--- OUTSIDE RECORDS SUMMARY | 2024-10-29 12:43 | XMS_ITS | Referral Summary ---
Author Organization [facility] [address] [place] [address] [address] [place] [address] Care Team Providers Care Aerospace Engineer Name Role Phone Jon Wills MD Primary Care Provider [phone] Encounters Date Type Department Care Team Description 10/27/2024 8:30 AM BUSINESS EDUCATION PROFESSOR Office Visit [facility] at [address] [place] [address] Greyson Preciado MD Paroxysmal atrial fibrillation (HCC) (Primary Dx) 10/19/2024 8:30 AM BUSINESS EDUCATION PROFESSOR Office Visit [facility] [address] [facility] [address] [place] [address] Greyson Preciado MD Paroxysmal atrial fibrillation (HCC) (Primary Dx) 08/05/2024 1:33 PM BUSINESS EDUCATION PROFESSOR - 08/05/2024 11:59 PM BUSINESS EDUCATION PROFESSOR Hospital Encounter [facility] [address] [place] [id number] Discharge Disposition: Discharge to home or self care 08/05/2024 1:33 PM BUSINESS EDUCATION PROFESSOR - 08/05/2024 11:59 PM BUSINESS EDUCATION PROFESSOR Hospital Encounter [facility] [address] [place] [address] Mild cognitive impairment Discharge Disposition: Discharge to home or self care from Last 3 Months Allergies No known active allergies Medications magnesium oxide (MAG-OX) 400 mg (241.3 mg elemental magnesium) tablet Take 1 tablet (400 mg total) by mouth daily 09/11/19 20 Active thiamine (VITAMIN B-1) 100 mg tablet Take 1 tablet (100 mg total) by mouth daily before breakfast 09/04/19 Active folic acid (FOLVITE) 1 mg tablet Take 1 tablet (1 mg total) by mouth daily 09/11/19 Active cyanocobalamin (Vitamin B-12) 1,000 mcg tabletIndication s:Prevention of Vitamin B12 Deficiency Take 1 tablet (1,000 mcg total) by mouth daily Active atorvastatin (LIPITOR) 20 mg tablet 12/23/19 20 Active Synthroid 75 mcg tablet 06/01/20 20 Active olmesartan (BENICAR) 40 mg tablet 05/01/20 21 Active cholestyramine (QUESTRAN) 4 gram packet PLEASE SEE ATTACHED FOR DETAILED DIRECTIONS 12/01/19 23 Active amLODIPine (NORVASC) 5 mg tablet Take 1 tablet (5 mg total) by mouth daily Active budesonide EC (ENTOCORT EC) 3 mg 24 hr capsule Take 1 capsule (3 mg total) by mouth every morning 07/16/20 23 Active sotaloL (BETAPACE) 80 mg tabletIndication s:Paroxysmal atrial fibrillation (HCC) TAKE 1 TABLET BY MOUTH 2 TIMES A DAY. 180 tablet 1 08/05/20 24 Active rivaroxaban (Xarelto) 20 mg tabletIndication s:Paroxysmal atrial fibrillation (HCC) TAKE 1 TABLET BY MOUTH EVERY DAY 90 tablet 10/05/19 25 Active rivaroxaban (XARELTO) 20 mg tabletIndication s:atrial fibrillation Take 1 tablet (20 mg total) by mouth daily 90 tablet 3 10/14/19 24 025 Discontinued Active Problems Problem Noted Date Diagnosed Date Mild cognitive impairment 07/02/2024 Memory loss or impairment 12/04/2023 Old cerebrovascular accident (CVA) without late effect 09/21/2019 Chronic anticoagulation 09/21/2019 Paroxysmal atrial fibrillation 09/21/2019 Essential hypertension 09/21/2019 Social History Tobacco Use Types Packs/Day Years Used Date Smoking Tobacco: Former Cigarettes Q uit: 09/21/1990 Smokeless Tobacco: Never Tobacco Cessation:Counseling Given: Not Answered Alcohol Use Standard Drinks/Week Comments Yes 7 (1 standard drink = 0.6 oz pur e alcohol) Comments Unknown Sex and Gender Information Value Date Recorded Sex Assigned at Not on file Legal Sex Female 2:04 AM BUSINESS EDUCATION PROFESSOR Gender Identity Female 07/12/2021 11:19 AM BUSINESS EDUCATION PROFESSOR Sexual Orientation Straight 07/12/2021 11 :19 AM BUSINESS EDUCATION PROFESSOR Last Filed Vital Signs Vital Sign Reading Time Taken Comments Blood Pressure 148/80 10/27/2024 8:15 AM BUSINESS EDUCATION PROFESSOR Pulse 66 10/27/2024 8:15 AM BUSINESS EDUCATION PROFESSOR Temperature 37 C (98.6 F) 07/02/2024 8:28 AM BUSINESS EDUCATION PROFESSOR Respiratory Rate 16 10/27/2024 8:15 AM BUSINESS EDUCATION PROFESSOR Oxygen Saturation 100% 07/02/2024 8:28 AM BUSINESS EDUCATION PROFESSOR Inhaled Oxygen Concentration - - Weight 47.6 kg (105 lb) 10/27/2024 8:15 AM BUSINESS EDUCATION PROFESSOR Height 162.6 cm (5' 4 ) 10/27/2024 8:15 AM BUSINESS EDUCATION PROFESSOR Body Mass Index 18.02 10/27/2024 8:15 AM BUSINESS EDUCATION PROFESSOR Plan of Treatment Not on file Medical Devices Implanted Type Area Production Proofreader Device Identifier Shelf Expiration Date Model / Serial / Lot Bladder Sling Pelvis Procedures Procedure Name Priority Date/Time Associated Diagnosis Comments ELECTROCARDIOGRAM REPORT Routine 10/19/2024 1:16 PM BUSINESS EDUCATION PROFESSOR Paroxysmal atrial fibrillation (HCC) PET/CT AMYLOID BRAIN Schedule Routine, Read Routine (OP Routine) 08/05/2024 3:15 PM BUSINESS EDUCATION PROFESSOR Mild cognitive impairment from Last 3 Months Results * Electrocardiogram Report (10/19/2024 1:16 PM BUSINESS EDUCATION PROFESSOR) us Greyson Preciado MD ECG ORDERABLES Final Re sult * PET/CT Amyloid Brain (08/05/2024 3:15 PM BUSINESS EDUCATION PROFESSOR) Anatomical Region Laterality Modality Positron Emissio n Tomography (PET) 08/05/2024 5:03 PM BUSINESS EDUCATION PROFESSOR Impressions 08/05/2024 5:28 PM BUSINESS EDUCATION PROFESSOR Negative amyloid-PET study, indicating no to sparse [...] by: DO Sam Perez 08/05/2024 5:28 PM BUSINESS EDUCATION PROFESSOR EXAMINATION: BRAIN AMYLOID-PET/CT IMAGING DATE OF STUDY: 08/05/2024 SCANNER: [employer] PET Vision (NV1). RADIOPHARMACEUTICAL: 10.3 mCi F-18 [...] AMYLOID-PET/CT IMAGING DATE OF STUDY: 08/05/2024 SCANNER: [employer] PET Vision (NV1). RADIOPHARMACEUTICAL: 10.3 mCi F-18 [...] it. Electronically signed by: Miguel Townsend DO Authorrosemary Provider Result Type Result Stat Kathleen Brar NP IMG PET PROCEDURES Fin al Result from Last 3 Months Insurance MEDICARE SOLUTIONS MEDICARE SOLUTIONS MEDICARE SOLUTIONS Care Teams Aerospace Engineer Relationship Specialty Start Date End Date Jon Wills MD [address] [place] [address] PCP - General 06/28/11
--- OUTSIDE RECORDS SUMMARY | 2024-10-29 12:43 | XMS_ITS | Encounter Summary ---
Author Organization [facility] Healthcare Address [address] [place] [address] Care Team Providers Care College Associate Name Role Phone Jon Wills MD Primary Care Provider [phone] Encounter Details Date Type Department Care Team (Late st Contact Info) Description 12/31/2023 Documentation [facility] OP Occup Therapy [facility] [address] [address] Angélica Arango, ALEX Social History Tobacco Use Types Packs/Day Years Used Date Smoking Tobacco: Former Cigarettes Q uit: 09/21/1990 Smokeless Tobacco: Never Alcohol Use Standard Drinks/Week Comments Yes 7 (1 standard drink = 0.6 oz pur e alcohol) Comments Unknown Sex and Gender Information Value Date Recorded Sex Assigned at Not on file Legal Sex Female 2:04 AM HOLLOW HANDLE KNIFE ASSEMBLER Gender Identity Female 07/12/2021 11:19 AM HOLLOW HANDLE KNIFE ASSEMBLER Sexual Orientation Straight 07/12/2021 11 :19 AM HOLLOW HANDLE KNIFE ASSEMBLER documented as of this encounter Plan of Treatment Not on file documented as of this encounter Visit Diagnoses Not on filedocumented in this encounter Care Teams College Associate Relationship Specialty Start Date End Date Jon Wills MD [address] [place] [address] PCP - General 06/28/11 documented as of this encounter
--- OUTSIDE RECORDS SUMMARY | 2024-10-29 12:43 | XMS_ITS | Clinical Summary ---
Author Organization [facility] [address] [place] [address] Care Team Providers Care Shipping And Receiving Coordinator Name Role Phone Jon Wills MD Primary Care Provider [phone] Allergies No known active allergies Medications magnesium oxide (MAG-OX) 400 mg (241.3 mg elemental magnesium) tablet Take 1 tablet (400 mg total) by mouth daily 09/11/19 20 Active thiamine (VITAMIN B-1) 100 mg tablet Take 1 tablet (100 mg total) by mouth daily before breakfast 09/04/19 20 Active folic acid (FOLVITE) 1 mg tablet Take 1 tablet (1 mg total) by mouth daily 09/11/19 20 Active cyanocobalamin (Vitamin B-12) 1,000 mcg tabletIndication [...] Paroxysmal atrial fibrillation 09/21/2019 Essential hypertension 09/21/2019 Encounters Date Type Department Care Team Description 10/27/2024 8:30 AM NUMERICAL ANALYSIS GROUP MANAGER Office Visit [facility] at [address] [place] [address] Greyson Preciado MD Paroxysmal atrial fibrillation (HCC) (Primary Dx) 10/19/2024 8:30 AM NUMERICAL ANALYSIS GROUP MANAGER Office Visit [facility] [address] [facility] [address] [place] [address] Greyson Preciado MD Paroxysmal atrial fibrillation (HCC) (Primary Dx) 08/05/2024 1:33 PM NUMERICAL ANALYSIS GROUP MANAGER - 08/05/2024 11:59 PM NUMERICAL ANALYSIS GROUP MANAGER Hospital Encounter [facility] [place] [address] Discharge Disposition: Discharge to home or self care 08/05/2024 1:33 PM NUMERICAL ANALYSIS GROUP MANAGER - 08/05/2024 11:59 PM NUMERICAL ANALYSIS GROUP MANAGER Hospital Encounter [facility] [place] [address] Mild cognitive impairment Discharge Disposition: Discharge to home or self care from Last 3 Months Surgical History Surgery Date Site/Laterality Comments FEMUR FRACTURE SURGERY HYSTERECTOMY RECTAL PROLAPSE REPAIR CATARACT EXTRACTION FRACTURE SURGERY 3014 COLON SURGERY 2009 Medical History Medical History Date Comments Atrial fibrillation (HCC) Hypertension Hypothyroidism Stroke (HCC) Cataracts, bilateral History of pneumonia Anxiety and depression History of anemia Peptic ulceration Dysmenorrhea Family History Medical History Relation Name Comments Heart attack Brother 3 Ramos Mora Kidney disease Brother 4 Oleg Mora Memory loss Brother 5 Crystal Mora Brain cancer Father Lung cancer Father Hearing loss Mother Chantel Mora Hypertension Mother Chantel Mora asystolie Mother Chantel Mora Heart disease Sister Relation Name Status Comments Brother 1 Alive Brother 2 Alive Brother 3 Ramos Mora Brother 4 Ed Morgan Brother 5 Crystal [...] on file Legal Sex Female 2:04 AM NUMERICAL ANALYSIS GROUP MANAGER Gender Identity Female 07/12/2021 11:19 AM NUMERICAL ANALYSIS GROUP MANAGER Sexual Orientation Straight 07/12/2021 11 :19 AM NUMERICAL ANALYSIS GROUP MANAGER Obstetrics History Last Filed Vital Signs Vital Sign Reading Time Taken Comments Blood Pressure 148/80 10/27/2024 8:15 AM NUMERICAL ANALYSIS GROUP MANAGER Pulse 66 10/27/2024 8:15 AM NUMERICAL ANALYSIS GROUP MANAGER Temperature 37 C (98.6 F) 07/02/2024 8:28 AM NUMERICAL ANALYSIS GROUP MANAGER Respiratory Rate 16 10/27/2024 8:15 AM NUMERICAL ANALYSIS GROUP MANAGER Oxygen Saturation 100% 07/02/2024 8:28 AM NUMERICAL ANALYSIS GROUP MANAGER Inhaled Oxygen Concentration - - Weight 47.6 kg (105 lb) 10/27/2024 8:15 AM NUMERICAL ANALYSIS GROUP MANAGER Height 162.6 cm (5' 4 ) 10/27/2024 8:15 AM NUMERICAL ANALYSIS GROUP MANAGER Body Mass Index 18.02 10/27/2024 8:15 AM NUMERICAL ANALYSIS GROUP MANAGER Plan of Treatment Health Maintenance Due Date [...] 11/05/2016, 05/05/2012 Medical Devices Implanted Type Area Mailing Manager Device Identifier Shelf Expiration Date Model / Serial / Lot Bladder Sling Pelvis Procedures Procedure Name Priority Date/Time Associated Diagnosis Comments ELECTROCARDIOGRAM REPORT Routine 10/19/2024 1:16 PM NUMERICAL ANALYSIS GROUP MANAGER Paroxysmal atrial fibrillation (HCC) PET/CT AMYLOID BRAIN Schedule Routine, Read Routine (OP Routine) 08/05/2024 3:15 PM NUMERICAL ANALYSIS GROUP MANAGER Mild cognitive impairment from Last 3 Months Results * Electrocardiogram Report (10/19/2024 1:16 PM NUMERICAL ANALYSIS GROUP MANAGER) us Greyson Preciado MD ECG ORDERABLES Final Re sult * PET/CT Amyloid Brain (08/05/2024 3:15 PM NUMERICAL ANALYSIS GROUP MANAGER) Anatomical Region Laterality Modality Positron Emissio n Tomography (PET) 08/05/2024 5:03 PM NUMERICAL ANALYSIS GROUP MANAGER Impressions 08/05/2024 5:28 PM NUMERICAL ANALYSIS GROUP MANAGER Negative amyloid-PET study, indicating no to sparse [...] it. Electronically signed by: Miguel Townsend DO Narrative 08/05/2024 5:28 PM NUMERICAL ANALYSIS GROUP MANAGER EXAMINATION: BRAIN AMYLOID-PET/CT IMAGING DATE OF STUDY: 08/05/2024 SCANNER: [facility] PET Vision (NV1). RADIOPHARMACEUTICAL: 10.3 mCi [...] AMYLOID-PET/CT IMAGING DATE OF STUDY: 08/05/2024 SCANNER: [facility] [employer] (NV1). RADIOPHARMACEUTICAL: 10.3 mCi F-18 florbetapir i.v. [...] Electronically signed by: Miguel Townsend DO Kathleen Fernanda Brar TREATMENT SPECIALIST IMG PET PROCEDURES Fin al Result from Last 3 Months Insurance MEDICARE SOLUTIONS MEDICARE SOLUTIONS MEDICARE SOLUTIONS Care Teams Shipping And Receiving Coordinator Relationship Specialty Start Date End Date Jon Wills MD [address] INTERNAL MEDICINE [place] [id number] PCP - General 06/28/11
== END 2024-10-29 11:05 | disposition home or self-care (01) ==
PROVIDERS: PCP Internal Medicine; Visit Provider Internal Medicine
DX: R35.0 Frequency of micturition (principal)
CPT/HCPCS: 81001; 87086; 87181

== ENCOUNTER 2024-11-09 10:38 | Outpatient (CLI) | payer MEDICARE, SELFPAY ==
[2024-11-09 12:25] LABS: Alanine Aminotransferase 21 U/L (6-35); Albumin Level 3.6 g/dL (3.5-5.1); Alkaline Phosphatase 73 U/L (38-126); Anion Gap 8 mmol/L (4-12); Aspartate Amino Transferase 31 U/L (14-36); Bilirubin,Total 0.3 mg/dL (0.2-1.3); Blood Urea Nitrogen 23 mg/dL (7-17); Calcium 9.1 mg/dL (8.4-10.2); Carbon Dioxide 26 mmol/L (22-30); Chloride 103 mmol/L (98-107); Cholesterol 152 mg/dL (0-200); Estimated Glomerular Filt Rate 44; Glucose 90 mg/dL (65-110); HDL Direct 92 mg/dL; Potassium 4.1 mmol/L (3.4-5.0); Sodium 137 mmol/L (137-145); Triglycerides 98 mg/dL (<150)
[2024-11-09 12:37] LABS: LDL Cholesterol Direct 39 mg/dL
[2024-11-09 12:43] LABS: Hemoglobin A1C 5.2 % (<5.7)
--- OUTSIDE RECORDS SUMMARY | 2024-11-09 12:58 | XMS_ITS | Encounter Summary ---
Author Organization [facility] Healthcare Address [address] [place] [address] Care Team Providers Care Fitting Room Supervisor Name Role Phone Jon Wills MD Primary Care Provider [phone] Encounter Details Date Type Department Care Team (Late st Contact Info) Description 12/31/2023 Documentation [facility] OP Occup Therapy [facility] [address] [address] Angélica Arango, ALEX Social History Tobacco Use Types Packs/Day Years Used Date Smoking Tobacco: Former Cigarettes Q uit: 09/21/1990 Smokeless Tobacco: Never Alcohol Use Standard Drinks/Week Comments Yes 7 (1 standard drink = 0.6 oz pur e alcohol) Comments Unknown Sex and Gender Information Value Date Recorded Sex Assigned at Not on file Legal Sex Female 2:04 AM THERMOFORMING MACHINE OPERATOR Gender Identity Female 07/12/2021 11:19 AM THERMOFORMING MACHINE OPERATOR Sexual Orientation Straight 07/12/2021 11 :19 AM THERMOFORMING MACHINE OPERATOR documented as of this encounter Plan of Treatment Not on file documented as of this encounter Visit Diagnoses Not on filedocumented in this encounter Care Teams Fitting Room Supervisor Relationship Specialty Start Date End Date Jon Wills MD [address] [place] [address] PCP - General 06/28/11 documented as of this encounter
--- OUTSIDE RECORDS SUMMARY | 2024-11-09 12:58 | XMS_ITS | Referral Summary ---
Author Organization [facility] [address] [place] [address] [address] [place] [address] Care Team Providers Care Plugger Man Name Role Phone Jon Wills MD Primary Care Provider [phone] Encounters Date Type Department Care Team Description 10/27/2024 8:30 AM ROLL CAPPER Office Visit [facility] Medical [facility] Cardiology at [address] [place] [address] Greyson Preciado MD Paroxysmal atrial fibrillation (HCC) (Primary Dx) 10/19/2024 8:30 AM ROLL CAPPER Office Visit [facility] Medical [facility] Cardiology [address] [facility] [address] [place] [address] Greyson Preciado MD Paroxysmal atrial fibrillation (HCC) (Primary Dx) from Last 3 Months Allergies No known active allergies Medications magnesium oxide (MAG-OX) 400 mg (241.3 mg elemental magnesium) tablet Take 1 tablet (400 mg total) by mouth daily 09/11/19 Active thiamine (VITAMIN B-1) 100 mg tablet [...] Active atorvastatin (LIPITOR) 20 mg tablet 12/23/19 Active Synthroid 75 mcg tablet 10/07/20 20 Active olmesartan (BENICAR) 40 mg tablet 05/01/20 21 Active cholestyramine (QUESTRAN) 4 gram packet PLEASE SEE ATTACHED FOR DETAILED DIRECTIONS 12/01/19 23 Active amLODIPine (NORVASC) 5 mg tablet Take 1 tablet (5 mg total) by mouth daily Active budesonide EC (ENTOCORT EC) 3 mg 24 hr capsule Take 1 capsule (3 mg total) by mouth every morning 07/16/20 23 Active rivaroxaban (Xarelto) 20 mg tabletIndication s:Paroxysmal atrial fibrillation (HCC) TAKE 1 TABLET BY MOUTH EVERY DAY 90 tablet 10/05/19 25 Active sotaloL (BETAPACE) 80 mg tabletIndication s:Paroxysmal atrial fibrillation (HCC) TAKE 1 TABLET BY MOUTH 2 TIMES A DAY. 180 tablet 3 11/06/19 25 Active sotaloL (BETAPACE) 80 mg tabletIndication s:Paroxysmal atrial fibrillation (HCC) TAKE 1 TABLET BY MOUTH 2 TIMES A DAY. 180 tablet 1 08/05/20 24 025 Discontinued Active Problems Problem Noted [...] on file Legal Sex Female 2:04 AM ROLL CAPPER Gender Identity Female 07/12/2021 11:19 AM ROLL CAPPER Sexual Orientation Straight 07/12/2021 11 :19 AM ROLL CAPPER Last Filed Vital Signs Vital Sign Reading Time Taken Comments Blood Pressure 148/80 10/27/2024 8:15 AM ROLL CAPPER Pulse 66 10/27/2024 8:15 AM ROLL CAPPER Temperature 37 C (98.6 F) 07/02/2024 8:28 AM ROLL CAPPER Respiratory Rate 16 10/27/2024 8:15 AM ROLL CAPPER Oxygen Saturation 100% 07/02/2024 8:28 AM ROLL CAPPER Inhaled Oxygen Concentration - - Weight 47.6 kg (105 lb) 10/27/2024 8:15 AM ROLL CAPPER Height 162.6 cm (5' 4 ) 10/27/2024 8:15 AM ROLL CAPPER Body Mass Index 18.02 10/27/2024 8:15 AM ROLL CAPPER Plan of Treatment Not on file Medical Devices Implanted Type Area Automation Control Integrator Device Identifier Shelf Expiration Date Model / Serial / Lot Bladder Sling Pelvis Procedures Procedure Name Priority Date/Time Associated Diagnosis Comments ELECTROCARDIOGRAM REPORT Routine 025 1:16 PM ROLL CAPPER Paroxysmal atrial fibrillation (HCC) from Last 3 Months Results * Electrocardiogram Report (10/19/2024 1:16 PM ROLL CAPPER) us Greyson Preciado MD ECG ORDERABLES Final Re sult from Last 3 Months Insurance [facility] Address: [facility] [address] [place] [address] [facility] Address: [address] [address] [place] [address] [place] [address] Care Teams Plugger Man Relationship Specialty Start Date End Date Jon Wills MD [address] [place] [address] PCP - General 06/28/11
--- OUTSIDE RECORDS SUMMARY | 2024-11-09 12:58 | XMS_ITS | Clinical Summary ---
Author Organization [facility] Care Team Providers Care Tier In Name Role Phone Unavailable Primary Care Provider Unavailabl e Social History Tobacco Use Types Packs/Day Years Used Date Smoking Tobacco: Never Assessed Comments Unknown Sex and Gender Information Value Date Recorded Sex Assigned at Not on file Legal Sex Female 8:16 AM WELDER FITTER Gender Identity Not on file Sexual Orientation [...]
--- OUTSIDE RECORDS SUMMARY | 2024-11-09 12:58 | XMS_ITS | Clinical Summary ---
Author Organization [facility] [address] [place] [address] Care Team Providers Care Vice President Education Name Role Phone Jon Wills MD Primary Care Provider [phone] Allergies No known active allergies Medications magnesium [...] Department Care Team Description 10/27/2024 8:30 AM LENS GENERATING MACHINE TENDER Office Visit [facility] Cardiology at [address] [place] [address] Greyson Preciado MD Paroxysmal atrial fibrillation (HCC) (Primary Dx) 10/19/2024 8:30 AM LENS GENERATING MACHINE TENDER Office Visit [facility] Medical Group Cardiology [address] [facility] [address] [place] [address] Greyson Preciado MD Paroxysmal atrial fibrillation (HCC) (Primary Dx) from Last 3 Months Surgical [...] 3 Ramos Mora Kidney disease Brother 4 Ed Morgan Memory [...] on file Legal Sex Female 2:04 AM LENS GENERATING MACHINE TENDER Gender Identity Female 07/12/2021 11:19 AM LENS GENERATING MACHINE TENDER Sexual Orientation Straight 07/12/2021 11 :19 AM LENS GENERATING MACHINE TENDER Obstetrics History Last Filed Vital Signs Vital Sign Reading Time Taken Comments Blood Pressure 148/80 10/27/2024 8:15 AM LENS GENERATING MACHINE TENDER Pulse 66 10/27/2024 8:15 AM LENS GENERATING MACHINE TENDER Temperature 37 C (98.6 F) 07/02/2024 8:28 AM LENS GENERATING MACHINE TENDER Respiratory Rate 16 10/27/2024 8:15 AM LENS GENERATING MACHINE TENDER Oxygen Saturation 100% 07/02/2024 8:28 AM LENS GENERATING MACHINE TENDER Inhaled Oxygen Concentration - - Weight 47.6 kg (105 lb) 10/27/2024 8:15 AM LENS GENERATING MACHINE TENDER Height 162.6 cm (5' 4 ) 10/27/2024 8:15 AM LENS GENERATING MACHINE TENDER Body Mass Index 18.02 10/27/2024 8:15 AM LENS GENERATING MACHINE TENDER Plan of Treatment Health Maintenance Due Date [...] 11/05/2016, 05/05/2012 Medical Devices Implanted Type Area Optical Mechanic Device Identifier Shelf Expiration Date Model / Serial / Lot Bladder Sling Pelvis Procedures Procedure Name Priority Date/Time Associated Diagnosis Comments ELECTROCARDIOGRAM REPORT Routine 025 1:16 PM LENS GENERATING MACHINE TENDER Paroxysmal atrial fibrillation (HCC) from Last 3 Months Results * Electrocardiogram Report (10/19/2024 1:16 PM LENS GENERATING MACHINE TENDER) us Greyson Preciado MD ECG ORDERABLES Final Re sult from Last 3 Months Insurance [employer] Care Teams Vice President Education Relationship Specialty Start Date End Date Jon Wills MD [address] [facility] [address] INTERNAL MEDICINE [place] [id number] PCP - General 06/28/11
== END 2024-11-09 10:39 | disposition home or self-care (01) ==
LOC: ANHLAB 10:39
PROVIDERS: PCP Internal Medicine; Visit Provider Internal Medicine
DX: E78.2 Mixed hyperlipidemia (principal); R73.9 Hyperglycemia, unspecified; I10 Essential (primary) hypertension
CPT/HCPCS: 36415; 80053; 80061; 83036

== ENCOUNTER 2024-11-13 08:07 | Outpatient (CLI) | payer MEDICARE, SELFPAY ==
--- NOTE | ~2024-11-13 | CT_ITS ---
CT of the Abdomen and Pelvis: Indication: CT urogram Technique: 2.5 mm axial scans were obtained through the abdomen and pelvis prior to and following in travenous administration of 130 cc of Omnipaque 350. Dose reduction technique was used on this scan b y utilizing automated exposure control and iterative reconstruction technique. The dose-length produc t (DLP) was 395.54 mGy-cm. COMPARISON: 02/14/2021 Findings: Scans through the lung bases demonstrate partially imaged patchy consolidation at the left lower lobe.. The liver, spleen, and adrenal glands are within normal limits. Stable left renal cyst and small hype rdense left renal cysts. 1 cm cystic lesion at the pancreas is similar to prior exam, at the tail. Ca lcified gallstones are present. There are extensive atherosclerotic calcifications of the aorta. No lymphadenopathy. No bowel obstruction or bowel wall thickening. There is no evidence to suggest acute appendicitis. Images through the pelvis were performed. Urinary bladder unremarkable. No pelvic mass seen. No ascit es. Impression: No distinct etiology for hematuria. Patchy consolidation left lower lobe, which could reflect pneumonia. Correlate clinically. Consider d edicated chest imaging as indicated. Small simple and hyperdense left renal cysts. Cholelithiasis. Reviewed, dictated and finalized at location M. Impression: No distinct etiology for hematuria. Patchy consolidation left lower lobe, which could reflect pneumonia. Correlate clinically. Consider dedicated chest imaging as indicated. Small simple and hyperdense left renal cysts. Cholelithiasis.
--- OUTSIDE RECORDS SUMMARY | 2024-11-13 08:20 | XMS_ITS | Clinical Summary ---
Author Organization [facility] Care Team Providers Care Family Law Attorney Name Role Phone Unavailable Primary Care Provider Unavailabl e Social History Tobacco Use Types Packs/Day Years Used Date Smoking Tobacco: Never Assessed Comments Unknown Sex and Gender Information Value Date Recorded Sex Assigned at Not on file Legal Sex Female 8:16 AM JUNIOR ORACLE DBA Gender Identity Not on file Sexual Orientation [...]
== END 2024-11-13 08:08 | disposition home or self-care (01) ==
PROVIDERS: PCP Internal Medicine; Visit Provider Internal Medicine
DX: J18.1 Lobar pneumonia, unspecified organism (principal); N28.1 Cyst of kidney, acquired; K80.20 Calculus of gallbladder without cholecystitis without obstruction; R82.998 Other abnormal findings in urine
CPT/HCPCS: 74178; Q9967

== ENCOUNTER 2024-12-27 10:07 | Emergency (ER) | payer MEDICARE, SELFPAY ==
[2024-12-27 10:20] VITALS: BP 124/52; PULSE 70; RESP 16; TEMP 36.1; O2SAT 98
--- NOTE | 2024-12-27 10:25 | ED.LOWEXIN ---
HPI - Extremity Injury (Lower) General Chief Complaint: Extremity Injury, Lower Stated Complaint: INJURED L KNEE Source: patient Mode of arrival: ambulatory Limitations: no limitations History of Present Illness HPI Narrative: Patient presents to [facility] with complaints of bruising to her left leg after falling yesterday and hitting the running board of her car. She endorses that she is on blood thinners. She did use ice last night, but has not been taking anything [id number]. She denies any concern for fracture. Denies any numbness, tingling, pain, or bleeding. Related Data Home Medications ?Medication ?Instructions ?Recorded ?Confirmed ?Last Taken ?Type rivaroxaban 20 mg tablet (Xarelto) 20 mg PO DAILY 09/07/22 11/16/24 07/09/23 History magnesium oxide 400 mg (241.3 mg 400 mg PO DAILY 07/08/23 11/16/24 Unknown History magnesium) tablet cholecalciferol (vitamin D3) 50 50 mcg PO DAILY 01/16/24 11/16/24 Unknown History mcg (2,000 unit) capsule amlodipine 2.5 mg tablet mg 12/27/24 Unknown History Allergies Allergy/AdvReac Type Severity Reaction Status Date / Time amoxicillin (From Augmentin) Allergy Intermediate Rash Verified 11/16/24 14:39 clavulanic acid (From Allergy Intermediate Rash Verified 11/16/24 14:39 Augmentin) Penicillins Allergy Intermediate Rash Verified 11/16/24 14:39 Review of Systems Review of Systems: CONSTITUTIONAL: Denies body aches, fever, chills, or sweats. EYES: Denies visual changes, redness, or discharge. ENT: Denies rhinorrhea, congestion CARDIOVASCULAR: Denies chest pain, palpitations, or edema. RESPIRATORY: Denies cough or dyspnea. GASTROINTESTINAL: Denies abdominal pain, nausea, vomiting, or diarrhea. SKIN: ?Bruising to left leg. MUSCULOSKELETAL: Denies back pain, joint pain, or myalgia. NEUROLOGIC: Denies headache, numbness, tingling, or weakness. All systems reviewed & are unremarkable except as noted in HPI and below PMFSH Past Medical History Medical History (Updated 12/27/24 @ 10:28 by Julianne Mccoy, SUPERVISOR POLE YARD) Right bundle branch block (RBBB) determined by electrocardiography Rash as adverse effect of penicillin Pneumonia Left leg swelling Elevated glucose Orthostatic hypotension Microscopic colitis Adult BMI <19 kg/sq m Peripheral edema Discoloration of skin of lower leg Lymphocytic colitis Cognitive changes Family history of Alzheimer's disease Abnormal weight loss Pancreatic cyst Unintentional weight loss Hx of ischemic right ica stroke Atrial fibrillation Weakness Chronic diarrhea Dehydration UTI (urinary tract infection) Influenza A Deafness in right ear Aortic stenosis Encounter for Medicare annual wellness exam Diarrhea Pancreatic insufficiency Elevated sed rate Cellulitis Elevated homocysteine CKD (chronic kidney disease) stage 1, GFR 90 ml/min or greater Mixed hyperlipidemia Stasis dermatitis Edema Shingles Blepharitis Exposure to COVID-19 virus History of tobacco abuse Blood in stool LLQ abdominal pain GERD (gastroesophageal reflux disease) Hormone replacement therapy (HRT) Encounter for routine adult health examination without abnormal findings Vitamin B12 deficiency Microscopic hematuria Adult BMI 19-24 kg/sq m Encounter for routine adult health examination with abnormal findings 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 Rectal prolapse Surgically repaired. Surgical History Surgical History H/O cataract extraction S/P cataract surgery Status post total hysterectomy and bilateral salpingo-oophorectomy History of endometrial ablation For dysfunctional uterine bleeding. History of orthopedic surgery ORIF left open femur fracture. History of chest tube placement Family History Family History Mother Hypertension Father Family history of lung cancer Family history of malignant neoplasm of brain Social History Social History Social History: The patient lives in [place] with her dog. She designates her daughter, Margo Koch, as her surrogate decision maker and she wishes to be a full code. She would not, however, want to be on long-term life support. She smoked up to 2 packs of cigarettes per day and quit 1990. 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 [employer] transit Code status full code Smoking packs per day: 2 Smoking cigarettes per day: 40.0 Years smoked: 33 Smoking pack-years: 66.00 Smoking status: Former smoker Tobacco type: cigarettes Alcohol intake: current Alcohol use details: HAD BEEN DRINKING MORE A FEW YEARS AGO Substance use: never Substance use type: does not use Lack of Transportation: No Lack of Food: Never True Current Housing: I Have Housing Concerned About Future Housing: No Difficulty Paying Gas/Electric Bills: No Difficulty Paying for Meds: No Currently Unemployed: No Education: High School Diploma/GED Difficulty w/ Childcare or Family Care: No Living arrangements: alone Gender identity (if verbalized by the patient): Female Spiritual care concerns: No Comments At time of signature, I have reviewed and agree with nursing past medical, surgical, social and family history unless otherwise noted. Please see nursing chart for further information. There is no relevant family history pertinent to the presenting complaint. Exam Narrative: GENERAL: Well-appearing HEAD: Normocephalic, atraumatic. EYES: ?conjunctivae clear, and EOMI. ENT: Mucous membranes moist. Oropharynx without edema, erythema or lesions. NECK: Supple. No lymphadenopathy CHEST: Clear to auscultation. HEART: Regular rate and rhythm. Extremities: Left leg has normal strength and sensation, normal range of motion with flexion/extension/rotation, and no pain with movement. No edema. Ecchymosis and slightly raised 5cm hematoma noted to left bocanegra. No open wounds, skin tenting, or obvious deformity; alignment normal, pulse palpable and equal bilaterally, skin warm, dry, pink. Capillary refill less than 3 seconds. NEURO: ?Alert and oriented x3.? Course Course Level of Care: Express Care Visit Vital Signs Vital signs: Vital Signs Temperature 96.9 F L 12/27/24 10:20 Pulse Rate 70 12/27/24 10:20 Respiratory Rate 16 12/27/24 10:20 Blood Pressure 124/52 L 12/27/24 10:20 Pulse Oximetry 98 12/27/24 10:20 Temperature 96.9 F L 12/27/24 10:20 Pulse Rate 70 12/27/24 10:20 Respiratory Rate 16 12/27/24 10:20 Blood Pressure 124/52 L 12/27/24 10:20 Pulse Oximetry 98 12/27/24 10:20 Reviewed MDM - Extremity Injury (Lower) MDM Narrative Medical decision making narrative: Discussed physical exam findings. Ori Wrap applied for support. Advised supportive measures and signs/symptoms to go to the ER. Pt is appropriate for outpatient treatment and follow up. Differential Diagnosis Differential diagnosis: Likely other (Hematoma, contusion, fracture of tibia/fibula. ) Critical Care Time Critical Care Time Critical Care Time: No Discharge Plan Discharge Clinical Impression: Hematoma Patient Disposition: Home Condition: Stable Instructions: Hematoma (ED) Additional Instructions: Rest, ice and elevate the affected extremity. Keep Ori wrap dry and in place. Go to the ER immediately for increased pain, bleeding, tingling/numbness, swelling, redness, and fever. Follow up with PCP tomorrow. Patient Language: Kazakh Prescriptions: No Action amlodipine 2.5 mg tablet Xarelto 20 mg tablet 20 mg PO DAILY Rx Instructions: must administer with evening meal budesonide 3 mg capsule,delayed,extend.release See Rx Instructions .ROUTE .COMPLEX Qty: 180 3RF Dose Instruction: TAKE 2 TABLETS BY MOUTH EVERY DAY Rx Instructions: TAKE 2 TABLETS BY MOUTH EVERY DAY sotalol 80 mg Tablet 80 mg PO Q12HR 30 Days Qty: 60 0RF magnesium oxide 400 mg (241.3 mg magnesium) tablet 400 mg PO DAILY cholecalciferol (vitamin D3) 50 mcg (2,000 unit) capsule 50 mcg PO DAILY amitriptyline 25 mg tablet 25 mg PO QHS Qty: 30 11RF thiamine HCl (vitamin B1) [Vitamin B-1] 100 mg tablet See Rx Instructions .ROUTE .COMPLEX Qty: 90 1RF Dose Instruction: TAKE 1 TABLET EVERY MORNING Rx Instructions: TAKE 1 TABLET EVERY MORNING folic acid 1 mg tablet See Rx Instructions .ROUTE .COMPLEX Qty: 90 1RF Dose Instruction: TAKE 1 TABLET DAILY Rx Instructions: TAKE 1 TABLET DAILY levothyroxine [Synthroid] 75 mcg tablet See Rx Instructions .ROUTE .COMPLEX Qty: 90 1RF Dose Instruction: TAKE 1 TABLET DAILY Rx Instructions: TAKE 1 TABLET DAILY atorvastatin 20 mg tablet See Rx Instructions .ROUTE .COMPLEX Qty: 90 1RF Dose Instruction: TAKE 1 TABLET DAILY Rx Instructions: TAKE 1 TABLET DAILY olmesartan 40 mg tablet See Rx Instructions .ROUTE .COMPLEX Qty: 90 1RF Dose Instruction: TAKE 1 TABLET DAILY Rx Instructions: TAKE 1 TABLET DAILY cholestyramine (with sugar) 4 gram powder in packet See Rx Instructions .ROUTE .COMPLEX Qty: 180 1RF Dose Instruction: TAKE 1 PACKET (4 GRAMS) ORALLY TWICE A DAY. ADMINISTER WITH A MEAL AVOID OTHER MEDS WITHIN 1HR BEFORE OR 4-6HR AFTER DOSE. Rx Instructions: TAKE 1 PACKET (4 GRAMS) ORALLY TWICE A DAY. ADMINISTER WITH A MEAL AVOID OTHER MEDS WITHIN 1HR BEFORE OR 4-6HR AFTER DOSE. cefuroxime axetil 500 mg tablet 500 mg PO Q12H Qty: 20 0RF Follow-up/Referrals: Jon Wills MD [Primary Care Provider] - Time of Disposition: 10:28
== END 2024-12-27 10:37 | disposition home or self-care (01) ==
PROVIDERS: PCP Internal Medicine
DX: S80.12XA Contusion of left lower leg, initial encounter (principal); W19.XXXA Unspecified fall, initial encounter; Z79.01 Long term (current) use of anticoagulants; I48.91 Unspecified atrial fibrillation; I35.0 Nonrheumatic aortic (valve) stenosis; I12.9 Hypertensive chronic kidney disease with stage 1 through stage 4 chronic kidney disease, or unspecified chronic kidney disease; N18.1 Chronic kidney disease, stage 1; E78.2 Mixed hyperlipidemia; K21.9 Gastro-esophageal reflux disease without esophagitis; E03.9 Hypothyroidism, unspecified; Z86.73 Personal history of transient ischemic attack (TIA), and cerebral infarction without residual deficits
CPT/HCPCS: 99212; G0463

== ENCOUNTER 2025-01-28 11:28 | Outpatient (CLI) | payer MEDICARE, SELFPAY ==
--- NOTE | ~2025-01-28 | XR_ITS ---
AP view of the pelvis Clinical history: Pain Findings: No acute fracture or dislocation is seen. Prior ORIF of the proximal left femur noted with healed subtrochanteric fracture deformity. Osseous alignment is anatomic. Bilateral hip and SI joint spaces are preserved. Soft tissues are unremarkable. Impression: No acute abnormality. Healed fracture deformity left subtrochanteric femoral region with orthopedic hardware in place. Reviewed, dictated and finalized at location . Impression: No acute abnormality. Healed fracture deformity left subtrochanteric femoral region with orthopedic h ardware in place.
--- NOTE | ~2025-01-28 | XR_ITS ---
XR chest 2V 01/28/2025 13:36 Indication: Shortness of breath Procedure: PA and lateral views of the chest Comparison: Comparison to multiple prior studies sequentially, with oldest reviewed study dated 09/21. Findings: There is a left lower lobe mass which appears to extend to the pleural surface posteriorly on lateral view. There is surrounding airspace disease, likely representing superimposed pneumonia/at electasis. Heart size normal. No significant effusion. No pneumothorax. Impression: 1: Left lower lobe mass, concerning for bronchogenic carcinoma. Recommend further evaluation with con trast-enhanced CT. 2: Left basilar airspace disease may represent superimposed atelectasis, pneumonia or lymphangitic s pread of tumor. Reviewed, dictated and finalized at location A. Impression: 1: Left lower lobe mass, concerning for bronchogenic carcinoma. Recommend furth er evaluation with contrast-enhanced CT. 2: Left basilar airspace disease may represent superimposed atelectasis, pneum onia or lymphangitic spread of tumor.
--- NOTE | ~2025-01-28 | XR_ITS ---
Lumbosacral Spine: AP and lateral views Clinical History: Pain Findings: There is dextroscoliosis, apex at L2-L3 disc space level. No fracture or dislocation otherw ise. There is moderate to advanced degenerative disc narrowing at L2-L3 and L3-L4. There is severe fa cet arthropathy throughout the lumbar spine. The sacroiliac joints are normally outlined. Impression: Advanced degenerative spondylosis, with associated dextroscoliosis, as detailed above. Reviewed, dictated and finalized at location M. Impression: Advanced degenerative spondylosis, with associated dextroscoliosis, as detailed above.
[2025-01-28 11:55] LABS: Basophils Percent Auto 0.3 % (0.2-1.2); Eosinophils Absolute Auto 0.1 K/mm3 (0-0.3); Eosinophils Percent Auto 0.7 % (0-4.4); Hematocrit 31.9 % (37.0-47.0); Hemoglobin 9.8 g/dL (12.0-15.0); Immature Granulocyte Absolute 0.08 K/mm3 (0.00-0.031); Immature Granulocyte Percent A 0.7 % (0-0.5); Lymphocytes Absolute Auto 0.99 K/mm3 (0.9-3.2); Lymphocytes Percent Auto 8.3 % (18.3-44.2); Mean Corpuscular HGB Conc 30.7 g/dl (32-36); Mean Corpuscular Volume 94.4 fl (80-100); Mean Platelet Volume 8.3 fl (7.4-10.4); Monocytes Absolute Auto 1.1 K/mm3 (0.1-0.6); Monocytes Percent Auto 9.1 % (2.6-8.5); Neutrophils Absolute Auto 9.6 K/mm3 (1.3-6.7); Neutrophils Percent Auto 80.9 % (45.5-73.1); Platelet Count Result 414 k/mm3 (150-375); Red Blood Count 3.38 M/mm3 (4.2-5.4); Red Cell Distribution Width 14.7 % (11.5-14.5); White Blood Count 11.9 K/mm3 (4.5-10.0)
[2025-01-28 12:12] LABS: Alanine Aminotransferase 17 U/L (6-35); Albumin Level 3.6 g/dL (3.5-5.1); Alkaline Phosphatase 81 U/L (38-126); Anion Gap 9 mmol/L (4-12); Aspartate Amino Transferase 26 U/L (14-36); Bilirubin,Total 0.3 mg/dL (0.2-1.3); Blood Urea Nitrogen 12 mg/dL (7-17); Calcium 9.4 mg/dL (8.4-10.2); Carbon Dioxide 24 mmol/L (22-30); Chloride 101 mmol/L (98-107); Estimated Glomerular Filt Rate 55; Glucose 103 mg/dL (65-110); Magnesium 1.8 mg/dL (1.6-2.3); Potassium 4.4 mmol/L (3.4-5.0); Sodium 134 mmol/L (137-145); Total Protein 7.8 g/dL (6.3-8.2)
--- OUTSIDE RECORDS SUMMARY | 2025-01-28 12:35 | XMS_ITS | Encounter Summary ---
Author Organization [facility] Healthcare Address [address] [place] [address] Care Team Providers Care Sales Engagement Manager Name Role Phone Jon Wills MD Primary Care Provider Encounter Details Date Type Department Care Team (Late st Contact Info) Description 12/31/2023 Documentation [facility] OP Occup Therapy [facility] [address] [address] Angélica Arango, ALEX Social History Tobacco Use Types Packs/Day Years Used Date Smoking Tobacco: Former Cigarettes Q uit: 09/21/1990 Smokeless Tobacco: Never Alcohol Use Standard Drinks/Week Comments Yes 7 (1 standard drink = 0.6 oz pur e alcohol) Comments Unknown Sex and Gender Information Value Date Recorded Sex Assigned at Not on file Legal Sex Female 2:04 AM FOUNTAIN MANAGER Gender Identity Female 07/12/2021 11:19 AM FOUNTAIN MANAGER Sexual Orientation Straight 07/12/2021 11 :19 AM FOUNTAIN MANAGER documented as of this encounter Plan of Treatment Not on file documented as of this encounter Visit Diagnoses Not on filedocumented in this encounter Care Teams Sales Engagement Manager Relationship Specialty Start Date End Date Jon Wills MD [address] [place] [address] PCP - General 06/28/11 documented as of this encounter
--- OUTSIDE RECORDS SUMMARY | 2025-01-28 12:35 | XMS_ITS | Clinical Summary ---
Author Organization [facility] Care Team Providers Care Melting Supervisor Name Role Phone Unavailable Primary Care Provider Unavailabl e Social History Tobacco Use Types Packs/Day Years Used Date Smoking Tobacco: Never Assessed Comments Unknown Sex and Gender Information Value Date Recorded Sex Assigned at Not on file Legal Sex Female 8:16 AM POT LINING SUPERVISOR Gender Identity Not on file Sexual Orientation [...]
--- OUTSIDE RECORDS SUMMARY | 2025-01-28 12:35 | XMS_ITS | Clinical Summary ---
Author Organization [facility] [place] [place] [address] Address [address] [place] [address] Care Team Providers Care Manager Data Name Role Phone Jon Wills MD Primary Care Provider [phone] Allergies No known active allergies Medications magnesium [...] DAY. 180 tablet 3 11/06/19 25 Active rivaroxaban (Xarelto) 20 mg tabletIndication s:Paroxysmal atrial fibrillation (HCC) TAKE 1 TABLET BY MOUTH EVERY DAY 90 tablet 2 12/31/19 25 Active levothyroxine (SYNTHROID) 75 mcg tablet Take 1 tablet (75 mcg total) by mouth early childhood lead teacher before breakfast Active rivaroxaban (Xarelto) 20 mg tabletIndication s:Paroxysmal atrial fibrillation (HCC) TAKE 1 TABLET BY MOUTH EVERY DAY 90 tablet 10/05/19 25 025 Discontinued Active Problems Problem Noted Date Diagnosed Date Mild cognitive impairment 07/02/2024 Assessment & Plan (01/21/2025 9:08 AM CDT): Overall, relatively stable cognitive testing. Her Logical Memory score did decrease from 7 (06/2024) to 0 today. Her amyloid PET scan was negative, indicating Alzheimer's disease is not the likely diagnosis. Recommended staying active, keeping up with mood and sleep, and eating healthy. Follow-up scheduled with Dr. Kraus in July 2025. Memory loss or impairment 12/04/2023 Old cerebrovascular accident (CVA) without late effect 09/21/2019 Chronic anticoagulation 09/21/2019 Paroxysmal atrial fibrillation 09/21/2019 Essential hypertension 09/21/2019 Encounters Date Type Department Care Team Description 01/21/2025 8:45 AM CDT Office Visit [facility] [address] 6th [address] [place] [address] Albert Pope NP Mild cognitive impairment from Last 3 Months Surgical History Surgery [...] loss Mother Chantel Mora Hypertension Mother Chantel Morgan asystolie Mother Chantel Mora Heart disease Sister Relation Name Status Comments Brother 1 Alive Brother 2 Alive Brother 3 Ramos Hen[place] Brother 4 Ed Morgan Brother 5 Crystal [...] on file Legal Sex Female 2:04 AM CARDIAC REHABILITATION SPECIALIST Gender Identity Female 07/12/2021 11:19 AM CARDIAC REHABILITATION SPECIALIST Sexual Orientation Straight 07/12/2021 11 :19 AM CARDIAC REHABILITATION SPECIALIST Obstetrics History Last Filed Vital Signs Vital Sign Reading Time Taken Comments Blood Pressure 131/69 01/21/2025 8:26 AM CDT Pulse 67 01/21/2025 8:26 AM CDT Temperature 36.7 C (98 F) 01/21/2025 8:26 AM CDT Respiratory Rate 16 10/27/2024 8:15 AM CARDIAC REHABILITATION SPECIALIST Oxygen Saturation 98% 01/21/2025 8:26 AM CDT Inhaled Oxygen Concentration - - Weight 48.8 kg (107 lb 8 oz) 01/21/2025 8:26 AM CDT Height 157.5 cm (5' 2) 01/21/2025 8:26 AM CDT Body Mass Index 19.66 01/21/2025 8:26 AM CDT Plan of Treatment Health Maintenance Due Date Last Done Comments Depression Screening 1945 Hepatitis C Screening 1945 Osteoporosis Screening-Bone Density Scan 1945 DTaP/Tdap/Td Vaccine (1 - Tdap) 1956 Hepatitis B Screening 1963 Well Visit 65+ 2010 Zoster Vaccine (2 of 3) 10/29/2016 09/03/2016, 09/05 Fall Risk Assessment 06/28/2021 06/28/2020 Influenza Vaccine (Season Ended) 2025 05/08/2018, 05/19/2017, 09/03/2016, Additional history exists Pneumococcal vaccine 65+ Completed 018, 11/05/2016, 05/05/2012 Medical Devices Implanted Type Area Sap Pi Developer Device Identifier Shelf Expiration Date Model / Serial / Lot Bladder Sling Pelvis Insurance [facility] MEDICARE ADVANTAGE [facility] Address: [place] [id number] [facility] MEDICARE ADVANTAGE [facility] Address: [address] [facility] MEDICARE ADVANTAGE [facility] MEDICARE Address: [address] [place], [place] [phone] Care Teams Manager Data Relationship Specialty Start Date End Date Jon Wills MD [address] [facility] [address] [place] [phone] PCP - General 06/28/11
--- OUTSIDE RECORDS SUMMARY | 2025-01-28 12:35 | XMS_ITS | Referral Summary ---
Author Organization [facility] [place] [address] Address [address] [place] [address] Care Team Providers Care Tractor Operator Name Role Phone Jon Wills MD Primary Care Provider [phone] Encounters Date Type Department Care Team Description 01/21/2025 8:45 AM CDT Office Visit [facility] Diagnostic [address] 6th [address] [place] [address] Albert Pope NP Mild cognitive impairment from Last 3 Months Allergies No known [...] 1 tablet (75 mcg total) by mouth on air talent before breakfast Active rivaroxaban (Xarelto) 20 mg [...] on file Legal Sex Female 2:04 AM SPECIALTY SALES CONSULTANT Gender Identity Female 07/12/2021 11:19 AM SPECIALTY SALES CONSULTANT Sexual Orientation Straight 07/12/2021 11 :19 AM SPECIALTY SALES CONSULTANT Last Filed Vital Signs Vital Sign Reading Time Taken Comments Blood Pressure 131/69 01/21/2025 8:26 AM CDT Pulse 67 01/21/2025 8:26 AM CDT Temperature 36.7 C (98 F) 01/21/2025 8:26 AM CDT Respiratory Rate 16 10/27/2024 8:15 AM SPECIALTY SALES CONSULTANT Oxygen Saturation 98% 01/21/2025 8:26 AM CDT Inhaled Oxygen Concentration - - Weight 48.8 kg (107 lb 8 oz) 01/21/2025 8:26 AM CDT Height 157.5 cm (5' 2) 01/21/2025 8:26 AM CDT Body Mass Index 19.66 01/21/2025 8:26 AM CDT Plan of Treatment Not on file Medical Devices Implanted Type Area Thresher Broomcorn Device Identifier Shelf Expiration Date Model / Serial / Lot Bladder Sling Pelvis Insurance [facility] MEDICARE ADVANTAGE [facility] MEDICARE ADVANTAGE [facility] MEDICARE ADVANTAGE Care Teams Tractor Operator Relationship Specialty Start Date End Date Jon Wills MD [address] [place], [place] [phone] PCP - General 06/28/11
== END 2025-01-28 11:29 | disposition home or self-care (01) ==
PROVIDERS: PCP Internal Medicine; Visit Provider Internal Medicine
DX: R04.2 Hemoptysis (principal); R06.02 Shortness of breath; R05.9 Cough, unspecified; R53.1 Weakness; M54.50 Low back pain, unspecified; M54.9 Dorsalgia, unspecified; R29.898 Other symptoms and signs involving the musculoskeletal system
CPT/HCPCS: 36415; 71046; 72100; 72170; 80053; 83735; 85025; 87070; 87205; 89190

== ENCOUNTER 2025-02-11 07:22 | Outpatient (CLI) | payer MEDICARE, SELFPAY ==
--- NOTE | ~2025-02-11 | CT_ITS ---
Clinical Indication: Nonspecific abnormal finding of lung field CT Scan of the Chest with Contrast: Technique: Contiguous sections were acquired throughout the chest after intravenous administration of 75 cc of Omnipaque 350. Dose reduction technique was used on this scan by utilizing automated exposu re control and iterative reconstruction technique. The dose-length product (DLP) was 149.25 mGy-cm. COMPARISON: 10/01/2024 Findings: There is no evidence of any significant mediastinal, hilar or axillary lymphadenopathy. There is no f illing defect in the pulmonary arterial tree to suggest pulmonary embolus. There is no evidence of ao rtic dissection or aneurysm. There is no evidence of pleural or pericardial effusion. Extensive left lower lobe consolidation is again present, likely reflecting comminution of atelectasi s and pneumonia. There is suggestion of small areas of fluid attenuation within the consolidated lung , which could reflect small areas of necrosis. Background mild chronic interstitial disease is presen t. Images through the upper abdomen reveal calcified gallstones. Impression: More extensive consolidation in the left lower lobe, likely a combination of atelectasis and pneumoni a. Suspected small areas of necrosis, or possibly early abscess formation, within a portion of the co nsolidated left lower lobe. Mild chronic interstitial disease. Cholelithiasis. Reviewed, dictated and finalized at [facility]. Impression: More extensive consolidation in the left lower lobe, likely a combination of at electasis and pneumonia. Suspected small areas of necrosis, or possibly early a bscess formation, within a portion of the consolidated left lower lobe. Mild chronic interstitial disease. Cholelithiasis.
--- OUTSIDE RECORDS SUMMARY | 2025-02-11 07:26 | XMS_ITS | Encounter Summary ---
Author Organization [facility] Address [address] [place] [address] Care Team Providers Care Die Welder Name Role Phone Jon Wills MD Primary Care Provider [phone] Encounter Details Date Type Department Care Team (Late st Contact Info) Description 12/31/2023 Documentation [facility] OP Occup Therapy [facility] [address] [address] Angélica Arango, ALEX Social History Tobacco Use Types Packs/Day Years Used Date Smoking Tobacco: Former Cigarettes Q uit: 09/21/1990 Smokeless Tobacco: Never Alcohol Use Standard Drinks/Week Comments Yes 7 (1 standard drink = 0.6 oz pur e alcohol) Comments Unknown Sex and Gender Information Value Date Recorded Sex Assigned at Not on file Legal Sex Female 2:[address] LIGHT SERVICER HELPER Gender Identity Female 07/12/2021 11:[address] LIGHT SERVICER HELPER Sexual Orientation Straight 07/12/2021 11 :[address] LIGHT SERVICER HELPER documented as of this encounter Plan of Treatment Not on file documented as of this encounter Visit Diagnoses Not on filedocumented in this encounter Care Teams Die Welder Relationship Specialty Start Date End Date Jon Wills MD [address] [place] [address] PCP - General 06/28/11 documented as of this encounter
--- OUTSIDE RECORDS SUMMARY | 2025-02-11 07:26 | XMS_ITS | Referral Summary ---
Author Organization [facility] [place] [address] Address [address] [place] [address] Care Team Providers Care Lab Specialist Name Role Phone Jon Wills MD Primary Care Provider [phone] Encounters Date Type Department Care Team Description 02/08/2025 Documentation [facility] [address] 6th [place] [address] [place] [address] Jonelle Kraus MD PhD Test Results 01/21/2025 8:45 AM CDT Office Visit [facility] [address] 6th [address] [place] [address] Albert Pope NP Mild cognitive impairment 01/20/2025 10:30 AM CDT - 01/20/2025 11:59 PM CDT Hospital Encounter [facility] Radiology [address] [place] [address] Research exam Discharge Disposition: Discharge to home or self [...] total) by mouth every morning 3 Active sotaloL (BETAPACE) 80 mg tabletIndications :Paroxysmal atrial fibrillation (HCC) TAKE 1 TABLET BY MOUTH 2 TIMES A DAY. 180 tablet 3 5 Active rivaroxaban (Xarelto) 20 mg tabletIndications :Paroxysmal atrial fibrillation (HCC) TAKE 1 TABLET BY MOUTH EVERY DAY 90 tablet 2 5 Active levothyroxine (SYNTHROID) 75 mcg tablet Take 1 tablet (75 mcg total) by mouth ophthalmic asst before breakfast Active Active Problems Problem Noted Date Diagnosed [...] on file Legal Sex Female 2:04 AM DOUGH RAISER Gender Identity Female 07/12/2021 11:19 AM DOUGH RAISER Sexual Orientation Straight 07/12/2021 11 :19 AM DOUGH RAISER Last Filed Vital Signs Vital Sign Reading Time Taken Comments Blood Pressure 131/69 01/21/2025 8:26 AM CDT Pulse 67 01/21/2025 8:26 AM CDT Temperature 36.7 C (98 F) 01/21/2025 8:26 AM CDT Respiratory Rate 16 10/27/2024 8:15 AM DOUGH RAISER Oxygen Saturation 98% 01/21/2025 8:26 AM CDT Inhaled Oxygen Concentration - - Weight 48.8 kg (107 lb 8 oz) 01/21/2025 8:26 AM CDT Height 157.5 cm (5' 2) 01/21/2025 8:26 AM CDT Body Mass Index 19.66 01/21/2025 8:26 AM CDT Plan of Treatment Not on file Medical Devices Implanted Type Area Mission Systems Engineer Device Identifier Shelf Expiration Date Model / Serial / Lot Bladder Sling Pelvis Procedures Procedure Name Priority Date/Time Associated Diagnosis Comments [facility] NEURO RESEARCH SCAN Schedule Routine, Read Routine (OP Routine) 01/20/2025 11:43 AM CDT Research exam from Last 3 Months Results * [facility] Neuro Research Scan (01/20/2025 11:43 AM CDT) Anatomical Region Laterality Modality Head and Neck N/A Magnetic Resonan ce 01/29/2025 5:25 PM CDT Impressions 01/29/2025 5:25 PM CDT Images reviewed for research quality assurance specialist purposes. Please see the recent dedicated diagnostic study for additional details. Aging changes. Incidental findings requiring follow up: None. This imaging examination was performed for research. Only clinically standard components of this imaging examination performed for research are included in this report. Nonstandard components have not been interpreted. The provided images may include some imaging not present in a standard clinical exam. The patient (and patient's insurance) should not be billed for this procedure (research - bill as ordered). All charges are covered by the research study. Electronically signed by: Wyatt Perez M.D. Narrative 01/29/2025 5:25 PM CDT EXAMINATION: RADIOLOGY CONSULTATION ON RESEARCH IMAGING STUDY STUDY INITIALLY PERFORMED: 01/20/2025 at [facility] at [facility]. TYPE OF STUDY: Multiple MRI images of the BRAIN WITHOUT CONTRAST are provided at the time of this interpretation. The exam was performed as part of a research study. Images are reviewed for safety. CONTRAST ROUTE: None administered DATE OF CONSULTATION: 01/29/2025 5:20 PM HISTORY: Memory loss. Imaging obtained for research quality assurance specialist and/or research. COMPARISON: 12/16/2023 FINDINGS: No acute findings. As compared to the prior study there are no significant changes. Moderate atrophy and small vessel disease, Fazekas 2. SWI images demonstrate two foci in the right and left temporal lobes. Limited MRA is normal. Procedure Note Wyatt Perez MD PhD - 01/29/2025 EXAMINATION: RADIOLOGY CONSULTATION ON RESEARCH IMAGING STUDY STUDY INITIALLY PERFORMED: 01/20/2025 at [facility] at [facility]. TYPE OF STUDY: Multiple MRI images of the BRAIN WITHOUT CONTRAST are provided at the time of this interpretation. The exam was performed as part of a research study. Images are reviewed for safety. CONTRAST ROUTE: None administered DATE OF CONSULTATION: 01/29/2025 5:20 PM HISTORY: Memory loss. Imaging obtained for research quality assurance specialist and/or research. COMPARISON: 12/16/2023 FINDINGS: No acute findings. As compared to the prior study there are no significant changes. Moderate atrophy and small vessel disease, Fazekas 2. SWI images demonstrate two foci in the right and left temporal lobes. Limited MRA is normal. IMPRESSION: Images reviewed for research quality assurance specialist purposes. Please see the recent dedicated diagnostic study for additional details. Aging changes. Incidental findings requiring follow up: None. This imaging examination was performed for research. Only clinically standard components of this imaging examination performed for research are included in this report. Nonstandard components have not been interpreted. The provided images may include some imaging not present in a standard clinical exam. The patient (and patient's insurance) should not be billed for this procedure (research - bill as ordered). All charges are covered by the research study. Electronically signed by: Wyatt Perez M.D. us Anitha Tidwell MD PhD IMG MRI PROCEDURES F inal Result from Last 3 Months Insurance [facility] MEDICARE ADVANTAGE Member Subscriber Plan / Payer (Ef fective 2019-Present) Name:Jina Mora Relation to Subscriber:Self Name:Jina Mora Payer ID:[id number] (NAIC) Type:[facility] MEDICARE Address: [place] [id number] Care Teams Lab Specialist Relationship Specialty Start Date End Date Jon Wills MD [address] [place] [address] PCP - General 06/28/11
--- OUTSIDE RECORDS SUMMARY | 2025-02-11 07:26 | XMS_ITS | Clinical Summary ---
Author Organization [facility] [address] Address [address] [place] [address] Care Team Providers Care Controlled Area Checker Name Role Phone Jon Wills MD Primary Care Provider [phone] Allergies No known active allergies Medications magnesium [...] BY MOUTH EVERY DAY 90 tablet 2 Active levothyroxine (SYNTHROID) 75 mcg tablet Take 1 tablet (75 mcg total) by mouth dining room host/hostess before breakfast Active Active Problems Problem Noted [...] Type Department Care Team Description 02/08/2025 Documentation [facility] [address] 6th [place] [address] [place] [address] Jonelle Kraus MD PhD Test Results 01/21/2025 8:45 AM CDT Office Visit [facility] [address] [place] [address] Albert Pope NP Mild cognitive impairment 01/20/2025 10:30 AM CDT - 01/20/2025 11:59 PM CDT Hospital Encounter [facility] Radiology [address] [place] [address] Research exam Discharge Disposition: Discharge to home [...] on file Legal Sex Female 2:04 AM NON LICENSED OPERATOR Gender Identity Female 07/12/2021 11:19 AM NON LICENSED OPERATOR Sexual Orientation Straight 07/12/2021 11 :19 AM NON LICENSED OPERATOR Obstetrics History Last Filed Vital Signs Vital Sign Reading Time Taken Comments Blood Pressure 131/69 01/21/2025 8:26 AM CDT Pulse 67 01/21/2025 8:26 AM CDT Temperature 36.7 C (98 F) 01/21/2025 8:26 AM CDT Respiratory Rate 16 10/27/2024 8:15 AM NON LICENSED OPERATOR Oxygen Saturation 98% 01/21/2025 8:26 AM CDT [...] 11/05/2016, 05/05/2012 Medical Devices Implanted Type Area Maintenance Of Way Clerk Device Identifier Shelf Expiration Date Model / Serial / Lot Bladder Sling Pelvis Procedures Procedure Name Priority Date/Time Associated Diagnosis Comments [facility] NEURO RESEARCH SCAN Schedule Routine, Read Routine (OP Routine) 01/20/2025 11:43 AM CDT Research exam from Last 3 Months Results * [facility] Neuro Research Scan (01/20/2025 11:43 AM CDT) Anatomical Region Laterality Modality Head and Neck N/A Magnetic Resonan ce 01/29/2025 5:25 PM CDT Impressions 01/29/2025 5:25 PM CDT Images reviewed for manufacturing quality engineer purposes. Please see the recent dedicated diagnostic [...] at the [facility] ([facility]) at [facility]. TYPE OF STUDY: Multiple MRI images of the BRAIN WITHOUT CONTRAST are provided at the time of this interpretation. The exam was performed as part of a research study. Images are reviewed for safety. CONTRAST ROUTE: None administered DATE OF CONSULTATION: 01/29/2025 5:20 PM HISTORY: Memory loss. Imaging obtained for manufacturing quality engineer and/or research. COMPARISON: 12/16/2023 FINDINGS: No acute [...] at the [facility] ([facility]) at [facility]. TYPE OF STUDY: Multiple MRI images of the BRAIN WITHOUT CONTRAST are provided at the time of this interpretation. The exam was performed as part of a research study. Images are reviewed for safety. CONTRAST ROUTE: None administered DATE OF CONSULTATION: 01/29/2025 5:20 PM HISTORY: Memory loss. Imaging obtained for manufacturing quality engineer and/or research. COMPARISON: 12/16/2023 FINDINGS: No acute findings. As compared to the prior study there are no significant changes. Moderate atrophy and small vessel disease, Fazekas 2. SWI images demonstrate two foci in the right and left temporal lobes. Limited MRA is normal. IMPRESSION: Images reviewed for manufacturing quality engineer purposes. Please see the recent dedicated diagnostic [...] study. Electronically signed by: Wyatt Perez M.D. Anitha Tidwell MD PhD IMG MRI PROCEDURES F inal Result from Last 3 Months Insurance [facility] MEDICARE ADVANTAGE [facility] Address: [address] [address] [place] [address] [facility] MEDICARE ADVANTAGE [facility] Address: [facility] [id number] [place] [phone] [facility] MEDICARE ADVANTAGE [facility] Address: [address] [place] [phone] Care Teams Controlled Area Checker Relationship Specialty Start Date End Date Jon Wills MD [address] [place] [address] PCP - General 06/28/11
--- OUTSIDE RECORDS SUMMARY | 2025-02-11 07:26 | XMS_ITS | Clinical Summary ---
Author Organization [facility] Care Team Providers Care Commercial Trailer Truck Driver Name Role Phone Unavailable Primary Care Provider Unavailabl e Social History Tobacco Use Types Packs/Day Years Used Date Smoking Tobacco: Never Assessed Comments Unknown Sex and Gender Information Value Date Recorded Sex Assigned at Not on file Legal Sex Female 8:16 AM GRAINER MACHINE Gender Identity Not on file Sexual Orientation Not on file Plan of Treatment Health Maintenance Due Date Last Done Comments Hepatitis C Virus (HCV) Screening 1945 Respiratory Syncytial Virus (RSV) Immunization (Adult) (1 - 1-dose 75+ series) 2020 SARS-COV-2 Immunization ( season) 2024 05/20/2021, 11/08/2020, 10/17/2020 Influenza Immunization (Season Ended) 2025 05/11/2021, 04/20/2020, 05/08/2018, Additional history exists Pneumococcal Immunization (50+ years) Completed 05/08/2018, 11/05/2016 DTaP/Tdap/Td Immunization Discontinued 02/15/2021 TdaP Immunization Completed 02/15/2021 Zoster Immunization Completed 04/01/2021, Hepatitis B Immunization Aged Out No longer eligible based on patient's age to complete this topic Human Papillomavirus (HPV) Immunization Aged Out No longer eligible based on patient's age to complete this topic Meningococcal Immunization (ACWY) Aged Out No longer eligible based on patient's age to complete this topic Rotavirus Immunization Aged Out No lo nger eligible based on patient's age to complete this topic
== END 2025-02-11 07:23 | disposition home or self-care (01) ==
PROVIDERS: PCP Internal Medicine; Visit Provider Internal Medicine
DX: R91.8 Other nonspecific abnormal finding of lung field (principal); J84.9 Interstitial pulmonary disease, unspecified; K80.20 Calculus of gallbladder without cholecystitis without obstruction
CPT/HCPCS: 71260; Q9967

== ENCOUNTER 2025-03-29 14:56 | Outpatient (CLI) | payer MEDICARE, SELFPAY ==
--- OUTSIDE RECORDS SUMMARY | 2025-03-29 15:09 | XMS_ITS | Clinical Summary ---
Author Organization [facility] Care Team Providers Care Water Resource Engineering Specialist Name Role Phone Unavailable Primary Care Provider Unavailabl e Social History Tobacco Use Types Packs/Day Years Used Date Smoking Tobacco: Never Assessed Comments Unknown Sex and Gender Information Value Date Recorded Sex Assigned at Not on file Legal Sex Female 8:16 AM SUSTAINABILITY PURCHASING AGENT Gender Identity Not on file Sexual Orientation Not on file Plan of Treatment Health Maintenance Due Date Last Done Comments Hepatitis C Virus (HCV) Screening 1945 Respiratory Syncytial Virus (RSV) Immunization (Adult) (1 - 1-dose 75+ series) 2020 SARS-COV-2 Immunization ( season) 2024 05/20/2021, 11/08/2020, 10/17/2020 Influenza Immunization (#1) 04/26/202504/26, 04/20/2020, 05/08/2018, Additional history exists Pneumococcal Immunization [...]
--- OUTSIDE RECORDS SUMMARY | 2025-03-29 15:09 | XMS_ITS | Clinical Summary ---
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 Active albuterol HFA (PROVENTIL HFA,VENTOLIN HFA,PROAIR HFA) 90 mcg/actuation inhaler Inhale 2 puffs every 6 (six) hours as needed for shortness of breath 1 each 5 Active Active Problems Problem Noted Date Diagnosed [...] Encounters Date Type Department Care Team Description 03/29/2025 11:35 AM CDT Lab [address] Community acquired pneumonia of left lower lobe of lung 03/29/2025 11:00 AM CDT Office Visit [facility] Pulmonary at [address] [place] [address] Renny Mcghee DO Community acquired pneumonia of left lower lobe of lung (Primary Dx); ILD (interstitial lung disease) (HCC) 02/11/2025 Ancillary Procedure AMH Outside Films 02/08/2025 Documentation [facility] [place] [address] [facility] 6th [place] [address] [place] [address] Jonelle Kraus MD PhD Test Results 01/28/2025 Ancillary Procedure AMH Outside Films 01/21/2025 8:45 AM CDT Office Visit [facility] [place] [address] [facility] 6th [address] [place] [id number] Albert Pope NP Mild cognitive impairment 01/20/2025 10:30 AM CDT - 01/20/2025 11:59 PM CDT Hospital Encounter [facility] Radiology [address] [place] [address] Research exam Discharge Disposition: Discharge to home [...] on file Legal Sex Female 2:04 AM ADVERTISING COPY WRITER Gender Identity Female 07/12/2021 11:19 AM ADVERTISING COPY WRITER Sexual Orientation Straight 07/12/2021 11 :19 AM ADVERTISING COPY WRITER Obstetrics History Last Filed Vital Signs Vital Sign Reading Time Taken Comments Blood Pressure 100/63 03/29/2025 10:46 AM CDT Pulse 54 03/29/2025 10:46 AM CDT Temperature 35.8 C (96.4 F) 03/29/2025 10:46 AM CDT Respiratory Rate 18 03/29/2025 10:46 AM CDT Oxygen Saturation 93% 03/29/2025 10:46 AM CDT Inhaled Oxygen Concentration - - Weight 46.3 kg (102 lb 1.6 oz) 03/29/2025 10:46 AM CDT Height 162.6 cm (5' 4) 03/29/2025 10:46 AM CDT Body Mass Index 17.53 03/29/2025 10:46 AM CDT Plan of Treatment Health Maintenance Due Date Last Done Comments Depression Screening 1945 Hepatitis C Screening 1945 Osteoporosis Screening-Bone Density Scan 1945 DTaP/Tdap/Td Vaccine (1 - Tdap) 1956 Hepatitis B Screening 1963 Well Visit 65+ 2010 Zoster Vaccine (2 of 3) 10/29/2016 09/03/2016, 09/05 Fall Risk Assessment 06/28/2021 06/28/2020 Influenza Vaccine (#1) 2025 8, 05/19/2017, 09/03/2016, Additional history exists Pneumococcal vaccine 65+ Completed 018, 11/05/2016, 05/05/2012 Medical Devices Implanted Type Area Social Secretary Device Identifier Shelf Expiration Date Model / Serial / Lot Bladder Sling Pelvis Procedures Procedure Name Priority Date/Time Associated Diagnosis Comments EGFR Routine 03/29/2025 11:34 AM CDT Community acquired pneumonia of left lower lobe of lung BASIC METABOLIC PANEL Routine 03/29/2025 11:34 AM CDT Community acquired pneumonia of left lower lobe of lung CT BODY OUTSIDE REFERENCE Routine 02/11/2025 12:00 AM CDT XR TRANSFER OF OUTSIDE FILMS Routine 01/28/2025 12:00 AM CDT [facility] NEURO RESEARCH SCAN Schedule Routine, Read Routine (OP Routine) 01/20/2025 11:43 AM CDT Research exam from Last 3 Months Results * (ABNORMAL) eGFR (03/29/2025 11:34 AM CDT) eGFR 57(L) >=60 mL/min/1. 73 m2 Comment: Interpretive Data Reference Interval Normal >/= 90 mL/min/1.73m2 Mildly decreased* 60 - 89 mL/min/1.73m2 Mildly to moderately decreased 45 - 59 mL/min/1.73m2 Moderately to severely decreased 30 - 44 mL/min/1.73m2 Severely decreased 15 - 29 mL/min/1.73m2 Kidney Failure < 15 mL/min/1.73m2 *Relative to young adult level Estimated glomerular filtration rate is determined by the 2020 CKD-EPI equation recommended by the National Kidney Foundation (A Unifying Approach to GFR Estimation: Recommendations of the NKF-ASK Task Force on Reassessing the Inclusion of Race in Diagnosing Kidney Disease, JASN 2020). The CKD-EPI equation should not be used for patients with unstable renal function and has not been validated in children and those over 70. Current interpretive data was last reviewed 2021. Blood 03/29/2025 11:3 4 AM CDT 03/29/2025 1:17 PM CDT Renny Mcghee DO LAB BLOOD ORDERABLES Cindy l Result [facility] [address] [facility] Department [place] [address] * (ABNORMAL) Basic metabolic panel (03/29/2025 11:34 AM CDT) Sodium 133(L) 135 - 145 mmol/L [facility] ([place]) Potassium, pl 4.4 3.3 - 4.9 mmol/L [facility] ([place]) Chloride 100 97 - 110 mmol/L [facility] ([place]) CO2 23 22 - 32 mmol/L [facility] ([place]) Anion gap 10 2 - 15 mmol/L [facility] ([place]) BUN 13 6 - 25 mg/dL [facility] ([place]) Creatinine 1.00 0.60 - 1.10 mg/dL [facility] ([place]) Glucose 99 70 - 199 mg/dL [facility] ([place]) Comment: Interpretive Data Fasting glucose >/= 126 mg/dl is diagnostic for diabetes. Fasting is defined as no caloric intake for at least 8 hours. Fasting glucose between 100 mg/dl to 125 mg/dl is diagnostic of prediabetes. In a patient with classic symptoms of hyperglycemia or hyperglycemic crisis, a random glucose >/= 200 mg/dl is diagnostic for diabetes. In the absence of unequivocal hyperglycemia, results should be confirmed by repeat testing. The classification and Diagnosis of Diabetes Diabetes Care 2021; 46: S19-S40. Current interpretive data was last revised 2022. Calcium 10.2 8.5 - 10.3 mg/dL [facility] ([place]) Blood 03/29/2025 11:3 4 AM CDT 03/29/2025 1:17 PM CDT us Renny Mcghee DO LAB BLOOD ORDERABLES Cindy poe Result Performing Organization Address [facility] Co de Phone Number DARCIE [facility] ([place]) [address] [facility] Department [place] [address] * CT Body Outside Reference (02/11/2025 12:00 AM CDT) Narrative RAD_PACS_[facility] - 03/15/2025 3:48 PM CDT This order has been auto-finalized and does not contain a result. us Not In File Miscellaneous IMG CT PROCEDURES Cindy l Result Performing Organization Address [facility] de Phone Number RAD_P[facility] * XR Outside Reference (01/28/2025 12:00 AM CDT) Narrative [facility] - 03/15/2025 3:48 PM CDT This order has been auto-finalized and does not contain a result. us Not In File Miscellaneous IMG XR PROCEDURES Cindy l Result Performing Organization Address [facility] Co de Phone Number RAD_PACS[facility] * [facility] Neuro Research Scan (01/20/2025 11:43 AM CDT) Anatomical Region Laterality Modality Head and Neck N/A Magnetic Resonan ce 01/29/2025 5:25 PM CDT Impressions 01/29/2025 5:25 PM CDT Images reviewed for quality process auditor purposes. Please see the recent dedicated diagnostic [...] at the [facility] ([facility]) at [facility]. TYPE OF STUDY: Multiple MRI images of the BRAIN WITHOUT CONTRAST are provided at the time of this interpretation. The exam was performed as part of a research study. Images are reviewed for safety. CONTRAST ROUTE: None administered DATE OF CONSULTATION: 01/29/2025 5:20 PM HISTORY: Memory loss. Imaging obtained for quality process auditor and/or research. COMPARISON: 12/16/2023 FINDINGS: No acute [...] at [facility] at [facility]. TYPE OF STUDY: Multiple MRI images of the BRAIN WITHOUT CONTRAST are provided at the time of this interpretation. The exam was performed as part of a research study. Images are reviewed for safety. CONTRAST ROUTE: None administered DATE OF CONSULTATION: 01/29/2025 5:20 PM HISTORY: Memory loss. Imaging obtained for quality process auditor and/or research. COMPARISON: 12/16/2023 FINDINGS: No acute findings. As compared to the prior study there are no significant changes. Moderate atrophy and small vessel disease, Fazekas 2. SWI images demonstrate two foci in the right and left temporal lobes. Limited MRA is normal. IMPRESSION: Images reviewed for quality process auditor purposes. Please see the recent dedicated diagnostic [...] inal Result from Last 3 Months Insurance [facility] MEDICARE [facility] MEDIC[facility] Address: [facility] [id number] [place] [phone] [facility] MEDICARE ADVANTAGE [facility] MEDICARE Address: [address] [address] [place] [address] [employer] MEDICARE ADVANTAGE [facility] MEDICARE Address: [address] [address] [place] [address] Care Teams Pipe Fitter Relationship Specialty Start Date End Date Jon Wills MD [address] [place] [address] PCP - General 06/28/11
--- OUTSIDE RECORDS SUMMARY | 2025-03-29 15:09 | XMS_ITS | Encounter Summary ---
Author Organization [facility] Healthcare Address [address] [place] [address] Care Team Providers Care Java Integration Developer Name Role Phone Jon Wills MD Primary Care Provider Reason for Referral * MRI/CAT/PET Scan (Routine) - Pending Review Specialty Diagnoses / Procedures Referred By Geena vitale Referred To Contact Radiology Diagnoses Community acquired pneumonia of left lower lobe of lung Procedures CT chest with contrast Renny Mcghee DO [address] [place] [address] [address] [place] [address] Phone: tel: fax: [address] [address] Referral ID Status Reason Start Date Expiration Date V isits Requested Visits Authorized [id number] Pending Review 03/29/2025 04/28/2026 1 1 Reason for Visit * Reason Comments ild * Consultation (Routine) - Closed Specialty Diagnoses / Procedures Referred By Contjulissa t Referred To Contact Pulmonary Disease / Pulmonology Diagnoses ILD (interstitial lung disease) (HCC) Jon Wills MD [address] [facility] [address] [facility] [address] [place] [address] Phone: tel: fax: [facility] Pulmonary at [address] [place] [address] Phone: tel: fax: Referral ID Status Reason Start Date Expiration Date V isits Requested Visits Authorized [id number] Closed Specialty Services Required 03/09/2025 04/08/2026 1 1 Encounter Details Date Type Department Care Team (Late st Contact Info) Description 03/29/2025 11:00 AM CDT Office Visit [facility] Pulmonary at [address] [place] [address] Renny Mcghee DO [address] [place] [address] [address] [place] [address] Community acquired pneumonia of left lower lobe of lung (Primary Dx); ILD (interstitial lung disease) (HCC) Social History Tobacco Use Types Packs/Day Years Used Date Smoking Tobacco: Former Cigarettes Q uit: 09/21/1990 Smokeless Tobacco: Never Alcohol Use Standard Drinks/Week Comments Yes 7 (1 standard drink = 0.6 oz pur e alcohol) Comments Unknown Sex and Gender Information Value Date Recorded Sex Assigned at Not on file Legal Sex Female 2:04 AM ROUNDHOUSE SUPERVISOR Gender Identity Female 07/12/2021 11:19 AM ROUNDHOUSE SUPERVISOR Sexual Orientation Straight 07/12/2021 11 :19 AM ROUNDHOUSE SUPERVISOR documented as of this encounter Last Filed Vital Signs Vital Sign Reading [...] Mass Index 17.53 03/29/2025 10:46 AM CDT documented in this encounter Ordered Prescriptions Prescription Sig Dispense Quantity Refills Last Filled Start Date End Date albuterol HFA (PROVENTIL HFA,VENTOLIN HFA,PROAIR HFA) 90 mcg/actuation inhaler Inhale 2 puffs every 6 (six) hours as needed for shortness of breath 1 each 11 03/29/2025 documented in this encounter Plan of Treatment Scheduled Orders Name Type Priority Associated Diagnoses Orde r Schedule CT chest with contrast Imaging Schedule Routine, Read Routine (OP Routine) Community acquired pneumonia of left lower lobe of lung Expected: 03/29/2025, Expires: 03/29/2026 documented as of this encounter Results * (ABNORMAL) Basic metabolic panel (03/29/2025 11:34 AM CDT) Sodium 133(L) 135 - 145 mmol/L [facility] ([place]) Potassium, pl 4.4 3.3 - 4.9 mmol/L [facility] ([place]) Chloride 100 97 - 110 mmol/L [facility] ([place]) CO2 23 22 - 32 mmol/L [facility] ([place]) Anion gap 10 2 - 15 mmol/L [facility] ([place]) BUN 13 6 - 25 [...] 2022. Calcium 10.2 8.5 - 10.3 mg/dL [facility] ([place]) Blood 03/29/2025 11:3 4 AM CDT 03/29/2025 1:17 PM CDT Renny Mcghee DO LAB BLOOD ORDERABLES Cindy poe Result [facility] ([place]) 1 [facility] Department [place] [address] documented in this encounter Visit Diagnoses Diagnosis Community acquired pneumonia of left lower lobe of lung- Primary ILD (interstitial lung disease) (HCC) Postinflammatory pulmonary fibrosis documented in this encounter Orders Outpatient Referral Count Last Ordered Date Fir st Ordered Date AMB REFERRAL TO PULMONOLOGY 1 03/29/2025 documented in this encounter Care Teams Java Integration Developer Relationship Specialty Start Date End Date Jon Wills MD [address] [facility] [address] [place] [address] PCP - General 06/28/11 documented as of this encounter
--- OUTSIDE RECORDS SUMMARY | 2025-03-29 15:09 | XMS_ITS | Referral Summary ---
Author Organization [facility] [address] Address [address] [place] [address] Care Team Providers Care Exchange Consultant Name Role Phone Jon Wills MD Primary Care Provider [phone] Encounters Date Type Department Care Team Description 03/29/2025 11:35 AM CDT Lab [address] Community acquired pneumonia of left lower lobe of lung 03/29/2025 11:00 AM CDT Office Visit [facility] Pulmonary at [address] [place] [address] Renny Mcghee DO Community acquired pneumonia of left lower lobe of lung (Primary Dx); ILD (interstitial lung disease) (HCC) 02/11/2025 Ancillary Procedure [facility] Outside Films 02/08/2025 Documentation [facility] [address] [facility] 6th [place] [address] [place] [address] Jonelle Kraus MD PhD Test Results 01/28/2025 Ancillary Procedure [facility] Outside Films 01/21/2025 8:45 AM CDT Office Visit [facility] [place] [address] [facility] 6th Floor [address] [place] [address] Albert Pope NP Mild cognitive impairment 01/20/2025 10:30 AM CDT - 01/20/2025 11:59 PM CDT Hospital Encounter [facility] Radiology [address] [facility] [place] [address] Research exam Discharge Disposition: Discharge to home [...] 1 tablet (75 mcg total) 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 Active albuterol HFA (PROVENTIL HFA,VENTOLIN HFA,PROAIR HFA) 90 mcg/actuation inhaler Inhale 2 puffs every 6 (six) hours as needed for shortness of breath 1 each 11 5 Active Active Problems Problem Noted Date [...] on file Legal Sex Female 2:04 AM SEX THERAPIST Gender Identity Female 07/12/2021 11:19 AM SEX THERAPIST Sexual Orientation Straight 07/12/2021 11 :19 AM SEX THERAPIST Last Filed Vital Signs Vital Sign Reading [...] 03/29/2025 10:46 AM CDT Plan of Treatment Not on file Medical Devices Implanted Type Area Office Sweeper Device Identifier Shelf Expiration Date Model / [...] of Race in Diagnosing Kidney Disease, JASN 202). The CKD-EPI equation should not be used for patients with unstable renal function and has not been validated in children and those over 70. Current interpretive data was last reviewed 2021. Blood 03/29/2025 11:3 4 AM CDT 03/29/2025 1:17 PM CDT us Renny Mcghee DO LAB BLOOD ORDERABLES Cindy l Result [facility]Z ([place]) 1 [facility] Department [place] [address] * (ABNORMAL) Basic metabolic panel (03/29/2025 11:34 AM CDT) Sodium 133(L) 135 - 145 mmol/L [facility] ([place]) Potassium, pl 4.4 3.3 - 4.9 mmol/L [...] DO LAB BLOOD ORDERABLES Cindy l Result Performing Organization Address City/[facility]/ZIP Co de Phone Number DARCI[facility] ([place]) 1 [facility] Department [place] [address] * CT Body Outside Reference (02/11/2025 12:00 AM CDT) Narrative RAD_PACS_[facility] - 03/15/2025 3:48 PM CDT This order has been auto-finalized and does not contain a result. us Not In File Miscellaneous IMG CT PROCEDURES Cindy l Result [facility] * XR Outside Reference (01/28/2025 12:00 AM CDT) Narrative [facility]_PACS[facility] - 03/15/2025 3:48 PM CDT This order has been auto-finalized and does not contain a result. us Not In File Miscellaneous IMG XR PROCEDURES Cindy l Result [facility] * [facility] Neuro Research Scan (01/20/2025 11:43 AM CDT) Anatomical Region Laterality Modality Head and Neck N/A Magnetic Resonan ce 01/29/2025 5:25 PM CDT Impressions 01/29/2025 5:25 PM CDT Images reviewed for rn quality purposes. Please see the recent dedicated diagnostic [...] [facility] ([facility]) at [facility]. TYPE OF STUDY: Multiple MRI images of the BRAIN WITHOUT CONTRAST are provided at the time of this interpretation. The exam was performed as part of a research study. Images are reviewed for safety. CONTRAST ROUTE: None administered DATE OF CONSULTATION: 01/29/2025 5:20 PM HISTORY: Memory loss. Imaging obtained for rn quality and/or research. COMPARISON: 12/16/2023 FINDINGS: No acute [...] [facility] ([facility]) at [facility]. TYPE OF STUDY: Multiple MRI images of the BRAIN WITHOUT CONTRAST are provided at the time of this interpretation. The exam was performed as part of a research study. Images are reviewed for safety. CONTRAST ROUTE: None administered DATE OF CONSULTATION: 01/29/2025 5:20 PM HISTORY: Memory loss. Imaging obtained for rn quality and/or research. COMPARISON: 12/16/2023 FINDINGS: No acute findings. As compared to the prior study there are no significant changes. Moderate atrophy and small vessel disease, Fazekas 2. SWI images demonstrate two foci in the right and left temporal lobes. Limited MRA is normal. IMPRESSION: Images reviewed for rn quality purposes. Please see the recent dedicated diagnostic [...] inal Result from Last 3 Months Insurance [facility] MEDICARE [facility]IC[facility] Address: [address] [address] [place] [address] [facility] MEDICARE [facility] MEDIC[facility] Address: [address] [address] [place] [address] Care Teams Exchange Consultant Relationship Specialty Start Date End Date Jon Wills MD [address] [place] [address] PCP - General 06/28/11
--- OUTSIDE RECORDS SUMMARY | 2025-03-29 15:09 | XMS_ITS | Encounter Summary ---
Author Organization [facility] Healthcare Address [address] [place] [address] Care Team Providers Care Electrical Controls Technician Name Role Phone Jon Wills MD Primary Care Provider [phone] Encounter Details Date Type Department Care Team (Late st Contact Info) Description 12/31/2023 Documentation [facility] OP Occup Therapy [facility] [address] [address] Angélica Arango, ALEX Social History Tobacco Use Types Packs/Day Years Used Date Smoking Tobacco: Former Cigarettes Q uit: 09/21/1990 Smokeless Tobacco: Never Alcohol Use Standard Drinks/Week Comments Yes 7 (1 standard drink = 0.6 oz pur e alcohol) Comments Unknown Sex and Gender Information Value Date Recorded Sex Assigned at Not on file Legal Sex Female 2:04 AM SOLUTION LEAD Gender Identity Female 07/12/2021 11:19 AM SOLUTION LEAD Sexual Orientation Straight 07/12/2021 11 :19 AM SOLUTION LEAD documented as of this encounter Plan of Treatment Not on file documented as of this encounter Visit Diagnoses Not on filedocumented in this encounter Care Teams Electrical Controls Technician Relationship Specialty Start Date End Date Jon Wills MD [address] [place] [address] PCP - General 06/28/11 documented as of this encounter
--- OUTSIDE RECORDS SUMMARY | 2025-03-29 15:09 | XMS_ITS | Encounter Summary ---
Author Organization [facility] Healthcare Address [address] [place] [address] Care Team Providers Care Strategic Planning Analyst Name Role Phone Jon Wills MD Primary Care Provider [phone] Encounter Details Date Type Department Care Team (Late st Contact Info) Description 03/29/2025 11:35 AM CDT [address] Community acquired pneumonia of left lower lobe of lung Social History Tobacco Use Types Packs/Day Years Used Date Smoking Tobacco: Former Cigarettes Q uit: 09/21/1990 Smokeless Tobacco: Never Alcohol Use Standard Drinks/Week Comments Yes 7 (1 standard drink = 0.6 oz pur e alcohol) Comments Unknown Sex and Gender Information Value Date Recorded Sex Assigned at Not on file Legal Sex Female 2:04 AM DIRECTOR SELECTION AND ADMINISTRATION Gender Identity Female 07/12/2021 11:19 AM DIRECTOR SELECTION AND ADMINISTRATION Sexual Orientation Straight 07/12/2021 11 :19 AM DIRECTOR SELECTION AND ADMINISTRATION documented as of this encounter Plan of Treatment Not on file documented as of this encounter Procedures Procedure Name Priority Date/Time Associated Diagnosis Comments EGFR Routine 03/29/2025 11:34 AM CDT Community acquired pneumonia of left lower lobe of lung BASIC METABOLIC PANEL Routine 03/29/2025 11:34 AM CDT Community acquired pneumonia of left lower lobe of lung documented in this encounter Results * (ABNORMAL) eGFR (03/29/2025 11:34 AM [...] DO LAB BLOOD ORDERABLES Cindy l Result [facility] ([place]) [address] [facility] Department [place] [address] * (ABNORMAL) Basic metabolic panel (03/29/2025 11:34 AM CDT) Sodium 133(L) 135 - 145 mmol/L [facility] ([place]) Potassium, pl 4.4 3.3 - 4.9 mmol/L [facility] ([place]) Chloride 100 97 - 110 mmol/L [facility] ([place]) CO2 23 22 - 32 mmol/L [facility] ([place]) Anion gap 10 2 - 15 mmol/L [facility] ([place]) BUN 13 6 - 25 mg/dL [facility] ([place]) Creatinine 1.00 0.60 - 1.10 mg/dL [facility] ([place]) Glucose 99 70 - 199 mg/dL [facility] ([place]) Comment: Interpretive Data Fasting glucose [...] 2022. Calcium 10.2 8.5 - 10.3 mg/dL [facility] ([place]) Blood 03/29/2025 11:3 4 AM CDT 03/29/2025 1:17 PM CDT Renny Mcghee DO LAB BLOOD ORDERABLES Cindy l Result [facility] ([place]) [address] [facility] Department [place] [address] documented in this encounter Visit Diagnoses Diagnosis Community acquired pneumonia of left lower lobe of lung documented in this encounter Care Teams Strategic Planning Analyst Relationship Specialty Start Date End Date Jon Wills MD [address] [facility] [place], [place] [id number] PCP - General 06/28/11 documented as of this encounter
[2025-03-29 15:53] LABS: Hematocrit 32.4 % (37.0-47.0); Hemoglobin 10.0 g/dL (12.0-15.0); Immature Granulocyte Percent A 0.2 % (0-0.5); Lymphocytes Absolute Auto 0.99 K/mm3 (0.9-3.2); Mean Corpuscular HGB Conc 30.9 g/dl (32-36); Mean Corpuscular Hemoglobin 28.9 pg (26-34); Mean Corpuscular Volume 93.6 fl (80-100); Nucleated Red Blood Cells Absolute Auto 0.000 K/mm3 (0.0-0.012); Nucleated Red Blood Cells Perc 0.0 % (0.0-0.2); Platelet Count Result 286 k/mm3 (150-375); Red Blood Count 3.46 M/mm3 (4.2-5.4); White Blood Count 5.9 K/mm3 (4.5-10.0)
[2025-03-29 16:31] LABS: Alanine Aminotransferase 17 U/L (6-35); Albumin Level 3.8 g/dL (3.5-5.1); Alkaline Phosphatase 75 U/L (38-126); Anion Gap 7 mmol/L (4-12); Aspartate Amino Transferase 37 U/L (14-36); Bilirubin,Total 0.2 mg/dL (0.2-1.3); Blood Urea Nitrogen 15 mg/dL (7-17); Calcium 9.7 mg/dL (8.4-10.2); Carbon Dioxide 26 mmol/L (22-30); Chloride 101 mmol/L (98-107); Cholesterol 156 mg/dL (0-200); Estimated Glomerular Filt Rate 45; Glucose 92 mg/dL (65-110); HDL Direct 75 mg/dL; Magnesium 1.8 mg/dL (1.6-2.3); Potassium 4.6 mmol/L (3.4-5.0); Sodium 134 mmol/L (137-145); Total Protein 7.8 g/dL (6.3-8.2); Triglycerides 80 mg/dL (<150)
[2025-03-29 17:02] LABS: Free T4 Free Thyroxine 1.57 ng/dL (0.78-2.19)
[2025-03-29 17:07] LABS: Thyroid Stimulating Hormone 1.370 uIU/mL (0.465-4.680)
[2025-03-30 09:57] LABS: Iron 52 ug/dL (37-170)
[2025-03-30 10:22] LABS: Percent Iron Saturation 14 % (20-50)
[2025-03-30 10:34] LABS: Ferritin 23.50 ng/mL (11.1-264)
== END 2025-03-29 14:57 | disposition home or self-care (01) ==
LOC: ANHLAB 14:58
PROVIDERS: PCP Internal Medicine; Visit Provider Internal Medicine
DX: R06.02 Shortness of breath (principal); R53.1 Weakness; D64.9 Anemia, unspecified; E03.9 Hypothyroidism, unspecified; E55.9 Vitamin D deficiency, unspecified; E78.2 Mixed hyperlipidemia
CPT/HCPCS: 36415; 80053; 80061; 82306; 82728; 83540; 83550; 83735; 84439; 84443; 85025

== ENCOUNTER 2025-06-03 08:09 | Outpatient (RCR) | payer MEDICARE, SELFPAY ==
--- NOTE | 2025-06-03 08:40 | WNDPHOTO ---
PHOTO ONLY - See Nursing Notes and/ or assessments for documentation.
--- NOTE | 2025-06-03 08:45 | WNDPHOTO ---
PHOTO ONLY - See Nursing Notes and/ or assessments for documentation.
[2025-06-03 10:42] VITALS: BMI 16.5
--- NOTE | 2025-06-14 08:31 | PCWOUND ---
WOCN NOTE Patient family called to cancel. patient weak and not feeling well.
== END 2025-08-10 10:31 | disposition home or self-care (01) ==
LOC: ANHWOC 08:09
PROVIDERS: PCP Internal Medicine; Visit Provider Internal Medicine
DX: S81.801D Unspecified open wound, right lower leg, subsequent encounter (principal)
CPT/HCPCS: 99214; G0463